=== PATIENT | male | born 1965 | race Caucasian/White ===

== ENCOUNTER 2016-12-21 18:57 | Inpatient (IN) | payer MEDICARE, MEDICAID ==
[~2016-12-21] VITALS: Ht 167.6 cm; Wt 84.0 kg
[~2016-12-21 18:57] MED LIST: GABA300C PO; GLPZ5T PO; IRON PO; LISI10TA2 PO; MS15TCR PO; OMEP-113 PO; OXYC-474 PO; QUET200T PO
[2016-12-21 19:16] VITALS: BP 116/65; PULSE 77; RESP 21; O2SAT 95
--- NOTE | 2016-12-21 20:18 | ED.REPORT ---
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 C/o associated slightly slurred speech and difficulty walking. Pt started new diuretics Furosemide 40 mg/day and chlorthalidone 25mg/day approximately a week ago. Pt has been on morphine and Oxycodone for 2 days. Pt is followed by hepatology in [place] and Dr. Ludwig Suárez oncology. Pt denies vomiting, LOC, and weakness. Pt has a hx of heavy alcohol abuse. Nursing Notes Stated Complaint: UNSTABLE ON FEET, LETHARGIC, FEELS GOOFY/NEW MEDS Chief Complaint: General Complaint Nursing Notes Reviewed: Yes Allergies: Coded Allergies: spironolactone (Verified Adverse Reaction, Mild, nipples hurt, 12/21/16) Scheduled ([Iron ]) 300 MG PO DAILY Gabapentin (Neurontin) 300 Mg Capsule 600 MG PO TID Glipizide (Glipizide) 5 Mg Tablet 5 MG PO DAILY Lisinopril (Lisinopril) 10 Mg Tablet 10 MG PO DAILY Morphine Sulfate ER (MS Contin) 15 Mg Tablet.er 15 MG PO q8hrs Omeprazole Magnesium (Omeprazole) 20 Mg Capsule.dr 20 MG PO DAILY Quetiapine Fumarate (Seroquel) 200 Mg Tablet 300 MG PO HS Scheduled PRN Oxycodone (Roxicodone) 5 Mg Tablet 5-10 MG PO Q4-6H PRN PRN For Pain General Time Seen by MD: 19:41 Chief Complaint Dizziness Hx Obtained From: Patient Arrived By: Walk-in Onset Occurred: 4 days ago Context of Onset: Other (new medication) Symptom Duration: Since onset Context Related History: Reports Recent medication Recent Healthcare: No recent hospitalization, Recent doctor visit Similar Sx Previous: No Past Medical History Past Medical History History of alcohol cirrhosis Diabetes Hypertension GERD Plan sleep apnea and uses CPAP History of CVA in 2005 Q GI bleed and esophageal varices Past Surgical History Status post left 3 for lateral discectomy by Dr. Fitzpatrick in 2013 for herniated nucleus pulposis Elbow repair Smoking History Former Smoker Social History Alcohol Use: In recovery Ambulatory Status Independent Review of Systems Full Review of Systems Constitutional: Reports: Fatigue Eyes: Denies: Eye pain left GI: Denies: Vomiting Neurologic: Reports: Dizziness, Slurred speech, Weakness, Denies: Change LOC, Syncope Complete sys rev & neg: except as marked. 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 Abdomen: Atraumatic, Soft Upper Extremities Upper Extremity / MS: Atraumatic, Inspection NL, Full range of motion, No deformity Wrist / Hand: Atraumatic, Inspection NL, Full range of motion, No deformity Right Leg / Calf: Positive: Swelling present... Left Leg / Calf: Positive: Swelling present... bilateral edema Ankle / Foot: Atraumatic, Inspection NL, Full range of motion, No deformity Color / Condition: Positive: Jaundice present Neurologic: Oriented X3, Speech NL wide, shuffling gait Interpretation & Diagnostics Lab Results Interpretation Result Diagram: 12/21/16214912/21/162149 Test 12/21/16 20:24 12/21/16 21:50 12/21/16 23:48 12/21/16 23:57 Urine Color Yellow (YELLOW) Urine Appearance Clear (CLEAR,HAZY) Urine pH 6.0 (5.0-8.0) Urine Specific [place] 1.005 (1.003-1.035) Urine Protein Negativemg/dL (NEG,TRACE) Urine Glucose (UA) Negativemg/dL (NEGATIVE) Urine Ketones Negativemg/dL (NEGATIVE) Urine Occult Blood Moderate (NEGATIVE) Urine Nitrite Negative (NEGATIVE) Urine Bilirubin Negative (NEGATIVE) Urine Urobilinogen 1.0mg/dL (NORMAL) Urine Leukocyte Esterase Negative (NEGATIVE) Urine RBC 3-10/hpf (0-2) Urine WBC 0-5/hpf (0-5) Urine Epithelial Cells Few/hpf (NONE-MOD) Urine Crystals None seen (NONE SEEN) Urine Bacteria Few/hpf (NONE-FEW) Urine Hyaline Casts None/lpf (NONE) Urine Granular Casts None seen (NONE SEEN) Urine Waxy Casts None seen (NONE SEEN) Urine Red Blood Cell Casts None seen (NONE SEEN) Urine White Blood Cell Casts None seen (NONE SEEN) Urine Mucus None seen (None Seen) Urine Trichomonas None seen (NONE SEEN) Urine Yeast None (NONE SEEN) Urinalysis Comment None Urine Culture Reflexed Not indicated White Blood Count 4.3th/mm3 (3.8-10.1) Red Blood Count 3.21mil/mm3 (4.40-5.80) Hemoglobin 7.8g/dL (13.8-17.2) Hematocrit 23.4% (41.0-50.0) Mean Corpuscular Volume 72.9fL (81-100) Mean Corpuscular Hemoglobin 24.3pg (27.0-35.0) Mean Corpuscular Hemoglobin Concent 33.3% (32.0-37.0) Red Cell Distribution Width 20.9% (12.3-15.4) Platelet Count 131bil/L (150-400) Neutrophils (%) (Auto) 73.0% (40-74) Lymphocytes (%) (Auto) 12.5% (14-46) Monocytes (%) (Auto) 12.0% (4-12) Eosinophils (%) (Auto) 2.1% (0-5) Basophils (%) (Auto) 0.2% (0-3) Prothrombin Time 14.4sec (8.1-12.5) Prothromb Time International Ratio 1.34ratio Sodium Level 113mEq/L (134-144) Potassium Level 3.4mEq/L (3.5-5.2) Chloride Level 71mEq/L (97-108) Carbon Dioxide Level 21mmol/L (18-29) Blood Urea Nitrogen 23mg/dL (6-24) Creatinine 0.78mg/dL (0.76-1.27) Estimat Glomerular Filtration Rate 111mL/min (>59) Glucose Level 94mg/dL (60-99) Calcium Level 8.3mg/dL (8.5-10.1) Total Bilirubin 5.6mg/dL (0.0-1.2) Aspartate Amino Transf (AST/SGOT) 212U/L (0-50) Alanine Aminotransferase (ALT/SGPT) 60U/L (0-44) Alkaline Phosphatase 258U/L (25-150) Ammonia 111ug/dL (18-53) Troponin T 0.010ug/L (0.0-0.011) Pro-B-Type Natriuretic Peptide 45.58pg/mL (0-121) Total Protein 8.2g/dL (6.4-8.4) Albumin 3.1g/dL (3.4-5.0) Lipase 58U/L (13-60) Hold Simms Top Tube Received (Received) Alcohols 99mg/dL (0-10) Lab Results Interpretation: Critically low sodium (113) Alcohol level 99 ECG Interpretation ECG Interpretation: prolonged MN interval prolonged QT interval Time: 20:36 Interpreted by: ED physician Normal ECG Interpretation: Normal sinus rhythm (rate 82) X-Ray Chest Interpretation Chest Xray Interpretation: IMPRESSION: No acute disease is seen in the two-view chest. Cause of cough is not identified. Dictated by: Dandy Castro M.D. on 12/21/2016 at 21:00 Approved by: Dandy Castro M.D. on 12/21/2016 at 21:01 View: Portable Interpretation / Wet Read by: Interpret - Radiologist CT Head Interpretation IMPRESSION: No acute intracranial abnormalities found. Because of unsteady gait is not identified. Dictated by: Dandy Castro M.D. on 12/21/2016 at 20:39 Approved by: Dandy Castro M.D. on 12/21/2016 at 20:42 Study: Head CT no contrast Interpretation / Wet Read by: Interpret - Radiologist Re-Eval/Medical Decision Med Decision/Clinical Course 2212: Pt rechecked. Informed of negative head CT and chest x-ray. 2300: Pt has critically low sodium (113). alcohol level 99. Plan for admit. 2305: Case discussed with Dr. Watkins, nephrology. If he is orthostatic, plan for fluid bolus. Otherwise plan for fluid restriction. 2312: Case discussed with Dr. Crews. He accepts admit. 51-year-old male without colic cirrhosis presents profoundly weak with a staggering gait. He is found to have critical hyponatremia at 113. He also has an elevated alcohol at about 99 and an ammonia up over 100 as well. I consulted with nephrology. For the time being and treated with fluid restriction while checking urine and serum osmolality. If he is hypotensive or orthostatic he will receive careful saline boluses. Otherwise free water restriction. He will be started on lactulose per hospitalist service. Time of Eval: 22:12 Re-Evaluation/Progress Note: Pt rechecked. Informed of negative head CT and chest x-ray. Time of Eval: 23:00 Re-Evaluation/Progress Note: Pt has critically low sodium (113). Plan for admission. Consultation #1: Referral / Consult Name: Thierry Watkins MD Consulted With: Nephrology Call Returned at: 23:01 Note: Case discussed. If the pt is orthostatic, plan for fluid bolus. Otherwise plan for fluid restriction. Consultation #2: Referral / Consult Name: Binu Crews MD Consulted With: Hospitalist Call Returned at: 23:12 Medical Office Technician: Agrees with eval, Agrees with plan, Accepts admit Note: Case discussed. Dr. Crews accepts admit. Counseled Regarding: Diagnosis, Lab results, Need for admission Discharge & Departure Primary Impression: Hyponatremia Additional Impression: Encephalopathy, hepatic Disposition: ADMITTED TO HOSPITAL Discharge Condition All VS Reviewed: Yes Condition: Stable Referrals: LATRICE HAMMER DO (PCP) Crit Care Except Billable Proc Time Spent: >225 minutes Services Performed: Patient management by me, Time spent at bedside, Reviewing test results, Reviewing imaging, Discussing patient care, Documentation in record Scribe Attestation Portion of this note were transcribed by Magnolia Barahona. I, Dr. Brenner, personally performed the history, physical exam, and medical decision-making: I reviewed and confirmed the accuracy for the information in the transcribed note. Signed by: kaylie Gregorio, 12/21/16 2200 copies to: LATRICE HAMMER Todd P DO Dec 21, 2016 20:18 Magnolia Barahona Dec 21, 2016 20:25
[2016-12-21 20:36] LABS: APPEARANCE,URINE CLEAR (CLEAR,HAZY); COLOR,URINE YELLOW (YELLOW)
[2016-12-21 20:37] LABS: OCCULT BLOOD,URINE MODERATE (NEGATIVE)
--- NOTE | 2016-12-21 20:44 | DRSVH ---
PROCEDURE: CT BRAIN WITHOUT CONTRAST ([id number]) INDICATIONS: unsteady gait, weakness TECHNIQUE: Noncontrast 4.5 mm thick angled axial sections acquired from the foramen magnum to the vertex, with c oronal reformats. COMPARISON: None. FINDINGS: Image quality: Good CSF spaces: Basal cisterns are patent. No extra-axial fluid collections. Ventricles are normal in size and shape. Brain: No midline shift. No intracranial masses or hemorrhage. Crowe-white matter interface is norm al. Skull and face: Calvarium and visualized facial bones are intact, without suspicious lesions. Sinuses: Visualized sinuses and mastoids are clear. IMPRESSION: No acute intracranial abnormalities found. Because of unsteady gait is not identified. Dictated by: Dandy Castro M.D. on 12/21/2016 at 20:39 Approved by: Dandy Castro M.D. on 12/21/2016 at 20:42
--- NOTE | 2016-12-21 21:03 | DRSVH ---
PROCEDURE: X-RAY CHEST, TWO VIEWS ([id number]) INDICATIONS: cough, unstable gait TECHNIQUE: 2 views of the chest were acquired. COMPARISON: [facility], , CHEST 1VW (PORTABLE), 04/27/2011, 8:46. FINDINGS: Surgical changes and devices: None. Lungs and pleura: No pleural effusions or pneumothorax. Lungs are clear. Mediastinum: Mediastinal contours are normal. Heart size is normal. Bones and chest wall: No suspicious bony abnormalities. Soft tissues appear unremarkable. IMPRESSION: No acute disease is seen in the two-view chest. Cause of cough is not identified. Dictated by: Dandy Castro M.D. on 12/21/2016 at 21:00 Approved by: Dandy Castro M.D. on 12/21/2016 at 21:01
[2016-12-21 21:05] VITALS: BP 118/71; PULSE 79; RESP 22; O2SAT 96
[2016-12-21 22:10] LABS: BASOPHILS % (AUTO) 0.2 % (0-3); EOSINOPHILS % (AUTO) 2.1 % (0-5); Mean Corpuscular Hemoglobin 24.3 pg (27.0-35.0); Mean Corpuscular Volume 72.9 fL (81-100); Platelet Count 131 bil/L (150-400)
[2016-12-21] MEDS ORDERED: 0.9% Sodium Chloride 1,000 ML IV ONE (22:20)
[2016-12-21 22:24] LABS: INR 1.34 ratio
[2016-12-21 22:56] LABS: TROPONIN T 0.01 ug/L (0.0-0.011)
[2016-12-22] VITALS (13 sets, daily range): BP systolic 90–141; BP diastolic 43–75; PULSE 78–93; RESP 14–22; O2SAT 94–97
[2016-12-22] MEDS ORDERED: Alum-Mag Hydrox-Simeth 30 mL Suspension PO PRN (00:35)
[2016-12-22] MEDS ORDERED: Ondansetron 2 mg/mL 2 mL Inj IVPUSH PRN (00:35)
[2016-12-22] MEDS ORDERED: Lactulose 20 Gm/30 mL 30 mL Syrup PO ONE ×2 (00:35→03:10)
[2016-12-22] MEDS ORDERED: Polyethylene Glycol (PEG) 17 Gm Powder PO PRN (00:35)
[2016-12-22] MEDS: Heparin 5,000 Unit/mL Inj SUBQ SCH ×3 (01:20→16:23)
[2016-12-22] MEDS ORDERED: OMEP20TA24 PO (01:50)
[2016-12-22] MEDS ORDERED: SITA100T12 PO (01:51)
[2016-12-22] MEDS ORDERED: GLIP10TA10 PO (01:52)
[2016-12-22] MEDS ORDERED: LISI-567 PO (01:52)
[2016-12-22] MEDS ORDERED: FURO40TA4 PO (01:54)
[2016-12-22] MEDS ORDERED: HYG25 PO (01:55)
[2016-12-22] MEDS ORDERED: ALBU18HF INH (01:55)
[2016-12-22] MEDS ORDERED: Glucose 40% Oral Gel 15 Gm Tube PO PRN (03:20)
--- NOTE | 2016-12-22 03:32 | PCM.HPMED ---
Subjective Date of Service Dec 21, 2016 Primary Provider: Admitting Physician: Primary Care Physician: Patric Arvizu DO Attending Physician: Chief Complaint: Fatigue, dizziness, difficulty walking History of Present Illness: Jonathan Rosen is a 51 year old man with past medical history significant for alcohol-related cirrhosis, iron deficiency anemia, non-insulin using diabetes mellitus, CVA, and chronic pain associated with lumbar DJD who presents to the ED due to progressive fatigue, dizziness, and difficulty walking over the past week. These symptoms seem to correlate to the initiation of new diuretics including furosemide 40 mg daily and chlorthalidone 25 mg daily on 12/15/16. Patient also notes that he has had slurring of speech over the last month but no other focal weakness. 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 When asked about his alcohol use he states he drinks 1 or 2 beers a day. Additional history obtained from the patient's close friend and in review of Dr. Ludwig Suárez's notes it is evident the patient drinks heavily. The patient is followed by [facility] in [place] for alcohol-related cirrhosis and esophageal varices that have not required intervention. He also follows with Dr. Ludwig Suárez for normocytic hypochromic anemia. In the ED vitals 36.8, pulse 77, respiratory rate 21, blood pressure 116/65, pulse oximetry 95% on room air. Labs were remarkable for sodium of 113, potassium 3.4, bilirubin 5.6, AST 12, ALT 60, alkaline phosphatase 258, ammonia 111, serum osmolality 260, and urine osmolality of 266. CT of the head and chest x-ray were unremarkable. Patient admitted for management of hyponatremia. Review of Systems: Comprehensive review of systems was conducted with the patient and found to be negative except as noted above in HPI. Allergies Coded Allergies: spironolactone (Verified Adverse Reaction, Mild, nipples hurt, 12/21/16) Home Medications Aspirin 81 mg daily Chlorthalidone 25 mg daily Furosemide 40 mg Gabapentin 600 mg 3 times a day Glipizide 10 mg at bedtime Iron 325 mg twice a day Januvia 100 mg daily Lisinopril 20 mg daily MS Contin 15 mg every 8 hours Niacin 250 mg daily Omeprazole 20 mg daily Oxycodone 5 mg every 6 hours when necessary Seroquel 300 mg daily Ventolin 2 puffs every 4-6 hours as needed PMH Diabetes mellitus type II Insomnia Depression Sleep apnea Cirrhosis Lumbar degenerative disc disease PTSD Hypertension Hyperlipidemia History of stroke Esophageal varices Surgical History Lumbar spine surgery in 2013 EGD Elbow surgery in 1994 Family History Paternal grandfather - rheumatoid arthritis Father and mother - healthy Social History Hx Alcohol Use: Yes Hx Substance Use: Yes Hx Tobacco Use: Yes Smoking Status: Former Smoker Exam Vital Signs Vital Sign - Last Date Time Temp Pulse Resp B/P Pulse Ox O2 Delivery O2 Flow Rate FiO2 12/21/16 21:05 79 22 118/71 96 Room Air 12/21/16 19:16 36.8 Exam General: No acute distress, well-developed, well-nourished, appropriately interactive HEENT: Normocephalic, atraumatic. External ears without defect. Pupils equal, round, and reactive to light and accommodation. Anicteric sclerae, moist conjunctivae, and no lid lag. Oropharynx free of erythema and cobble stoning with moist mucosa. Neck: Supple with full range of motion. No jugular venous distension. Cardiovascular: Regular rate and rhythm with a 3/6 systolic murmur. Pulmonary: Clear to auscultation bilaterally with no crackles, wheezes, or rhonchi. Normal respiratory effort with no use of accessory muscles. Abdomen: Bowel tones present. Soft, nontender, nondistended. Extremities: Pitting edema present up to mid calf bilaterally. Skin: Spider angiomas present on anterior chest and arms. Normal temperature, turgor, and texture. Neurological: Cranial nerves grossly intact. Slurred speech. Asterixis present. Mild tremor unknown if this is an essential tremor or from alcohol. Psychiatric: Alert and oriented to person, place, and time. Lab and Diagnostics Labs Laboratory Tests Test 12/21/16 20:24 Urine Color Yellow Urine Appearance Clear Urine pH 6.0 Urine Specific [place] 1.005 Urine Protein Negativemg/dL Urine Glucose (UA) Negativemg/dL Urine Ketones Negativemg/dL Urine Occult Blood Moderate Urine Nitrite Negative Urine Bilirubin Negative Urine Urobilinogen 1.0mg/dL Urine Leukocyte Esterase Negative Urine RBC 3-10/hpf Urine WBC 0-5/hpf Urine Epithelial Cells Few/hpf Urine Crystals None seen Urine Bacteria Few/hpf Urine Hyaline Casts None/lpf Urine Granular Casts None seen Urine Waxy Casts None seen Urine Red Blood Cell Casts None seen Urine White Blood Cell Casts None seen Urine Mucus None seen Urine Trichomonas None seen Urine Yeast None Urinalysis Comment None Urine Culture Reflexed Not indicated 12/21/16 21:50: Total Bilirubin 5.6, Aspartate Amino Transf (AST/SGOT) 212, Alanine Aminotransferase (ALT/SGPT) 60, Alkaline Phosphatase 258, Ammonia 111, Troponin T 0.010, Pro-B-Type Natriuretic Peptide 45.58, Total Protein 8.2, Albumin 3.1, Lipase 58 Alcohol 99 Result Diagram: 12/21/16214912/21/162149 X-Rays, CTs and MRIs X-RAY CHEST, TWO VIEWS ([id number]) IMPRESSION: No acute disease is seen in the two-view chest. Cause of cough is not identified. Dictated by: Dandy Castro M.D. on 12/21/2016 at 21:00 Approved by: Dandy Castro M.D. on 12/21/2016 at 21:01 CT BRAIN WITHOUT CONTRAST ([id number]) IMPRESSION: No acute intracranial abnormalities found. Because of unsteady gait is not identified. Dictated by: Dandy Castro M.D. on 12/21/2016 at 20:39 Approved by: Dandy Castro M.D. on 12/21/2016 at 20:42 12-lead ECG Normal sinus rhythm with a rate of 82 Prolonged VA interval of 210 Prolonged QT interval of 464 Assessment & Plan Jonathan Rosen is a 51 year old man with past medical history significant for alcohol-related cirrhosis, iron deficiency anemia, non-insulin using diabetes mellitus, CVA, and chronic pain associated with lumbar DJD who presents to the ED due to progressive fatigue, dizziness, and difficulty walking over the past week. Admitted for management of hyponatremia. Euvolemic hypotonic hyponatremia, present on admission, active. - Etiology likely multifactorial including SIADH, beer potomania, and recent addition of chlorthalidone. - On presentation sodium of 113 with urine osmolality 266, urine sodium 26, serum osmolality 260 - TSH 1.320. Cortisol level pending. - Fluid restriction of 1 L per day. - Repeat BMP at 0400. - Hold chlorthalidone. - Nephrology consulted. Appreciate time and recommendations. Hyperammonia secondary to Hepatic encephalopathy, present on admission, active. - Patient is a heavy drinker. Ammonia level of 111 and blood alcohol 99 on presentation to the ED. - Patient alert and oriented x 3 at this time and mentating appropriately. - Lactulose 20 mg twice a day to achieve 3-4 bowel movements per day. Elevated liver enzymes, present on admission, active. - Patient has no abdominal pain. - AST and ALT in ratio consistent with alcohol abuse. Interestingly alkaline phosphatase and bilirubin are also elevated. - Repeat labs at 0400. If at this time cholestatic pattern is still present may consider abdominal ultrasound. Alcohol abuse, present on admission, active. - Alcohol level of 99. Last drink around 1200 on 12/21/16. Patient not forthcoming with quantity of alcohol. - AST and ALT in ratio consistent with alcohol abuse. - [facility] protocol in place. - Further discussion about alcohol cessation and resources to be given by Day Team. - Case Management referral placed. Cirrhosis, present on admission, chronic. - Meld score of 16, conveying a 6% 3 month mortality. - Stigmata present including spider angiomas. - Patient states he has esophageal varices but they have not required banding. - Managed by [facility] in [place]. Consider requesting records. - Patient states that he has been checked for hepatitis C and HIV which were both negative recently. Diabetes mellitus, present on admission, chronic. - Home regimen includes Januvia and glipizide. - We will initiate low-dose correctional scale. - Hemoglobin A1c pending. Chronic pain, present on admission, ongoing. - Continue home regimen of Gabapentin 600 mg 3 times a day. - Continue home regimen of oxycodone 5 mg every 6 hours as needed for pain. PRN Medications - Acetaminophen as needed for mild pain/fever/headache - Bowel regimen as needed - Antiemetic as needed Patient is admitted under inpatient status with expected length of stay greater than 2 midnights due to severity of presenting symptoms, risk of adverse event, and complexity of treatment plan. Pain Evaluation: Adequate Pain Control GI Prophylaxis: Not indicated VTE Prophylaxis: Sub-Q Heparin (Unfractionated), SCDs Resuscitation Status: CPR: Attempt Resuscitation Attending Statement The patient was seen and examined together with Dr. Sherwood on 12/21 and I agree with the history, exam and plan as outlined in the note above. HAYDEE SHERWOOD DO Dec 21, 2016 23:48 Binu Crews MD Dec 22, 2016 03:38
[2016-12-22] MEDS ORDERED: Potassium Chloride 20 mEq SR Tablet PO ONE ×4 (05:35→17:55)
[2016-12-22] MEDS: Insulin LISPRO 300 Unit/3 mL Inj SUBQ SCH ×4 (08:00→22:18)
[2016-12-22] MEDS: Lactulose 20 Gm/30 mL 30 mL Syrup PO SCH ×2 (08:40→21:15)
[2016-12-22] MEDS: Multivit-Miner-Folic Acid-Iron Tablet PO SCH (08:40)
[2016-12-22 08:49] LABS: Magnesium 1.8 mg/dL (1.6-2.6); Phosphorus 2.3 mg/dL (2.5-4.9)
[2016-12-22 08:59] LABS: Mean Corpuscular Hemoglobin 24.8 pg (27.0-35.0); Mean Corpuscular Volume 73.7 fL (81-100); Platelet Count 123 bil/L (150-400)
[2016-12-22 09:00] LABS: BASOPHILS % (AUTO) 0.2 % (0-3); EOSINOPHILS % (AUTO) 1.1 % (0-5); MONOCYTES % (AUTO) 13.5 % (4-12); NEUTROPHILS % (AUTO) 79.8 % (40-74)
--- NOTE | 2016-12-22 09:57 | NUR ---
Social Work Note - Initial Assessment/CD assessment Jonathan Rosen is a 51 yr old admitted for severe hyponatremia, hyperammonemia. EMR reviewed: Pt has Medicare and [facility]. His PCP is Dr Arvizu. Is [facility] connected, no LTC insurance, No DPOA - Paperwork given. Readmit score not available. See attached CM initial assessment. SUGAR SAMPLER met with pt - introduced DC planning and explained SW role. Pt lives at home with two room mates. He is disabled after a CVA and back injuries. He is independent at baseline, does not drive due to low vision. He uses no DME. 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 Drinks mainly beer. He denies any drug use. Hx of treatment: Pt has been to AA for help with abstaining from alcohol. He denies any other rehabs. Pt is not currently enrolled in services. Hx of withdrawal: Pt denies any current withdrawal symptoms. Pt has had a CVA in the past - states he does not know if it was due to alcohol withdrawal. History of sobriety and supports: Pt identifies his girlfriend Jesica and his sister as good supports. He lives with several friends, one of which drinks daily. He states that he can ask his family to provide support and they would encourage sobriety. Patient's perception: Pt identified that his liver is not working well - he states that MD has told him to stop drinking in the past. He downplayed how much he was drinking - states he does not drink every day, that when he does he only drinks 2-4 beers. He states that he had not had a drink since Monday - SUGAR SAMPLER explained that when he came to ED yesterday he was .99. Pt states that he can stop on his own. SUGAR SAMPLER offered to have CDP from [facility] come to provide assessment - Pt declined. Suicidal ideation: Pt denies any thoughts of self harm. Recommendation: SUGAR SAMPLER recommends that pt follow up with [facility] for ETOH dependence. PT declining at this time. Pt may benefit from PT evaluation prior to going home. Plan: Home with significant other in [place]. Addendum: 12/22/16 at 1010 by JANEEN MONTES SS Amended: Links added.
--- NOTE | 2016-12-22 10:48 | NUR ---
critical lab: Na 113 Dr Trejo pageradha with critical lab Na of 113 (same as previous result, no change). no new orders as of yet. continue to monitor. Addendum: 12/22/16 at 1140 by MINI MIGUEL RN Dr Trejo aware. no new orders at this time. nephrology to follow.
[2016-12-22] MEDS ORDERED: 0.9% Sodium Chloride 1,000 ML IV SCH (11:40)
[2016-12-22] MEDS ORDERED: 0.9% Sodium Chloride 500 ML IV ONE (11:40)
--- NOTE | 2016-12-22 11:44 | NUR ---
transfer to PCC report called to Kayli Calvin RN. patient transferred to PCC room 2029 at 1145hrs.
--- NOTE | 2016-12-22 11:45 | NUR ---
Admission note report received from Noman WILKINS. Patient arrived to room 2030, via bed from ED. Patient oriented to room, use of call light. Policies and procedures explained. Patient verbalized understanding. Patient alert and oriented x3, pt reminded to use call light for help. Gabriella alarm on due to patient being unsteady on his feet. Awaiting orders. Ongoing care.
--- NOTE | 2016-12-22 13:11 | CONS ---
[address] [address] CONSULTATION REPORT PATIENT: CHAR QUEVEDO : 1965 MR#: [id number] ADMIT: 12/22/2016 JOB ID: [id number] NEPHROLOGY CONSULTATION: DATE OF SERVICE: 12/22/2016 REQUESTING PHYSICIAN: Keven Munson MD REASON FOR CONSULTATION: Management of hyponatremia. CHIEF COMPLAINT: Dizziness and difficulty walking. PRESENT ILLNESS: This is a 51-year-old, male with significant past medical history of chronic liver cirrhosis secondary to alcohol abuse, type 2 diabetes, hypertension, chronic back pain due to degenerative joint disease and lumbar radiculopathy, long-term opiate use who presented to the emergency department with a complaint of fatigue and difficulty walking. He reported that the symptoms started approximately one week after he started new diuretics including furosemide and chlorthalidone. The medications were prescribed on December 14, 2016. He brought the medication the day after. According to the outpatient note, he was instructed to take furosemide for three days due to lower extremity swelling, following 25 mg of chlorthalidone once a day. His initial serum sodium was 113 with a normal kidney function. From the outpatient record, his sodium level was 38; that was in July 2016. We do not have anything recent. The patient reported that he drinks a gallon of juice every day on top of three beers and water. He noted that he has had difficulty walking and feeling lightheaded over the past week. Also had some slurred speech over the past month also, but no neurological deficit. He was told that he has alcoholic liver cirrhosis. At one point, he stop drinking and has relapsed. He mentioned that he had abdominal paracentesis performed a number of years ago. He had esophageal viruses. He was followed by dining service inspector in [place]. In the emergency room, his initial blood pressure was 116/65. He did not have orthostatic hypotension. He was put on fluid restriction; however his serum sodium remained steady at 113. His urine output noted to be increased. In less than 12 hours, he has produced over 4 L. PAST MEDICAL HISTORY: 1. Chronic alcoholic liver cirrhosis. 2. Type 2 diabetes diagnosed in 2004. 3. Lumbar degenerative disk disease and radiculopathy. 4. Hypertension. 5. Dyslipidemia. 6. History of CVA. 7. Esophageal varices. 8. Depression. 9. Insomnia. 10. Sleep apnea. 11. PTSD. PAST SURGICAL HISTORY: 1. Status post lumbar spine surgery in 2013. 2. Status post EGD. 3. Elbow surgery in 1994. FAMILY HISTORY: Positive for rheumatoid arthritis in paternal grandfather. No kidney disease in the family. SOCIAL HISTORY: Actively drinker. He is a former smoker. ALLERGIES AND ADVERSE REACTIONS: SPIRONOLACTONE. REVIEW OF REVIEW: A 14 point review of systems was performed. PHYSICAL EXAMINATION: Vitals: Temperature 37.0, pulse 86, respiratory 14, blood pressure 139/64, O2 sat 94% on room air. General appearance: Awake, alert, oriented x3. In no acute distress. Dizzy when changing position. HEENT: Atraumatic. Moist mucous membranes. Positive for icteric sclerae. PERRLA. No JVD. No lymphadenopathy. No thyroid enlargement. Heart: Regular rhythm. Normal S1, S2. Systolic ejection murmur noted. Lungs: Clear to auscultation bilaterally. No wheezing. No rhonchi. No accessory muscle use. Abdomen is soft, obese, nontender, nondistended. Active bowel sounds. Extremities: Trace edema on the lower extremity. Skin: Positive for spider angiomata on the upper chest. Positive jaundice. LABORATORY: Sodium 113, potassium 3.2, chloride of 72, bicarb 26, BUN 20, creatinine 0.65. Calcium 8.7, phosphorus 2.3, magnesium 1.8. ASSESSMENT: 1. Symptomatic hyponatremia. Serum sodium 113, serum osmolarity 260, urine osmolality 266, urine sodium 26, urine specific gravity of 1.005, urine output of 4230. The etiology of the hyponatremia is likely due to increased free electrolyte fluid consumption including juices, beer, and water. On top of that, he was just recently started on chlorthalidone that obviously induced hyponatremia. SIADH is possible. However, his initial urine was diluted with specific gravity of 1.005. Polyuria was noted. We will put patient on the fluid restriction at 1000 cc per 24 hours. We will give the patient a bolus of normal saline and 500 cc and run at 100 cc/hour. Will replace potassium. We will monitor his serum sodium every 4 hours. If he does not respond, we will start 3% NaCL. 2. Alcoholic liver cirrhosis. 3. Suspected hepatic encephalopathy. 4. Type 2 diabetes. 5. Hypertension. MTDD
--- NOTE | 2016-12-22 14:45 | PCM.PNMED ---
Subjective Date of Service Dec 22, 2016 Subjective The patient does feel weak. He denies any anxiety or tremor. He does feel dizzy upon standing. No chest pain, or palpitations. No abdominal pain, nausea or diarrhea. Morning events noted. Exam Vital Signs Vital Sign - Last Date Time Temp Pulse Resp B/P Pulse Ox O2 Delivery O2 Flow Rate FiO2 12/22/16 11:46 89 12/22/16 11:45 36.8 20 129/75 95 Room Air Intake and Output 12/21/16 12/21/16 12/22/16 Cumulative From/Thru 15:00 23:00 07:00 12/21/16 19:16 - 12/22/16 04:27 Intake Total 120 ml 120 ml Output Total 3500 ml 3500 ml Balance -3380 ml -3380 ml Intake Oral 120 ml 120 ml Output Urine Total 3500 ml 3500 ml Exam Alert and oriented -3, no distress. Fluent speech, somewhat delayed one answering questions. Anicteric sclera. Lungs are clear with normal rate and effort Heart is regular without murmur gallop or rub Abdomen soft nontender, flat Extremities are free of edema. Skin is free of rash or lesions. IVs and Medications Medications Reviewed: Medications were reviewed in detail Lab and Diagnostics Result Diagram: 12/22/16 0805 12/22/16 1102 X-Rays, CTs and MRIs X-RAY CHEST, TWO VIEWS ([id number]) IMPRESSION: No acute disease is seen in the two-view chest. Cause of cough is not identified. Dictated by: Dandy Castro M.D. on 12/21/2016 at 21:00 Approved by: Dandy Castro M.D. on 12/21/2016 at 21:01 CT BRAIN WITHOUT CONTRAST ([id number]) IMPRESSION: No acute intracranial abnormalities found. Because of unsteady gait is not identified. Dictated by: Dandy Castro M.D. on 12/21/2016 at 20:39 Approved by: Dandy Castro M.D. on 12/21/2016 at 20:42 12-lead ECG Normal sinus rhythm with a rate of 82 Prolonged CO interval of 210 Prolonged QT interval of 464 Assessment & Plan Jonathan Rosen is a 51 year old man with past medical history significant for alcohol-related cirrhosis, iron deficiency anemia, non-insulin using diabetes mellitus, CVA, and chronic pain associated with lumbar DJD who presents to the ED due to progressive fatigue, dizziness, and difficulty walking over the past week. Admitted for management of hyponatremia. Euvolemic hypotonic hyponatremia, present on admission, active. - Etiology likely multifactorial including SIADH, beer potomania, and recent addition of chlorthalidone. - On presentation sodium of 113 with urine osmolality 266, urine sodium 26, serum osmolality 260 - TSH 1.320. Cortisol level pending. - Fluid restriction of 1 L per day. - Repeat BMP at 0400. - Hold chlorthalidone. - Nephrology consulted. Appreciate time and recommendations. They recommended normal saline at 100 per hour with interval sodiums. Hyperammonia secondary to Hepatic encephalopathy, present on admission, active and stable. - Patient is a heavy drinker. Ammonia level of 111 and blood alcohol 99 on presentation to the ED. - Patient alert and oriented x 3 at this time and mentating appropriately. - Lactulose 20 mg twice a day to achieve 3-4 bowel movements per day. Elevated liver enzymes, present on admission, active and stable. - Patient has no abdominal pain. - AST and ALT in ratio consistent with alcohol abuse. Interestingly alkaline phosphatase and bilirubin are also elevated. - Repeat labs at 0400. If at this time cholestatic pattern is still present may consider abdominal ultrasound. Alcohol abuse, present on admission, active and stable. - Alcohol level of 99. Last drink around 1200 on 12/21/16. Patient not forthcoming with quantity of alcohol. - AST and ALT in ratio consistent with alcohol abuse. - [facility] protocol in place. - Further discussion about alcohol cessation and resources to be given by Day Team. - Case Management referral placed. The patient states he has not been drinking for last year except for one drink yesterday afternoon. Continue to watch him carefully for evidence of withdrawal. Cirrhosis, present on admission, chronic and stable. - Meld score of 16, conveying a 6% 3 month mortality. - Stigmata present including spider angiomas. - Patient states he has esophageal varices but they have not required banding. - Managed by core manager in [place]. Consider requesting records. - Patient states that he has been checked for hepatitis C and HIV which were both negative recently. Diabetes mellitus, present on admission, chronic. - Home regimen includes Januvia and glipizide. - We will initiate low-dose correctional scale. - Hemoglobin A1c pending. Full add Lantus 5 at bedtime. Chronic pain, present on admission, ongoing and stable. - Continue home regimen of Gabapentin 600 mg 3 times a day. - Continue home regimen of oxycodone 5 mg every 6 hours as needed for pain. PRN Medications - Acetaminophen as needed for mild pain/fever/headache - Bowel regimen as needed - Antiemetic as needed Patient is admitted under inpatient status with expected length of stay greater than 2 midnights due to severity of presenting symptoms, risk of adverse event, and complexity of treatment plan. GI Prophylaxis: Not indicated VTE Prophylaxis: Sub-Q Heparin (Unfractionated), SCDs Resuscitation Status: CPR: Attempt Resuscitation Keven Trejo MD Dec 22, 2016 14:45
--- NOTE | 2016-12-22 16:18 | DRSVH ---
[facility] [address] [place] [address] Echocardiogram Report Name: CHAR QUEVEDO Study Date: 12/22/2016 Height: 66 in Hospital Exam Location: [facility] Weight: 222 lb Gender: Male BSA: 2.1 m2 : 1965 Age: 51 yrs BP: 116/43 mmHg Reason For Study: Murmur, fatigue, unstable on feet Performed By: Erica Amos Referring Physician: HOSPITALIST [facility] Interpretation Summary The left ventricle is normal in size. The left ventricle is mildly hyperdynamic. The ejection fraction is estimated to be 70-75%. There is no echo evidence for significant left ventricular outflow tract obstruction. The right ventricle is grossly normal size. The right ventricular systolic function is normal. There is mild mitral regurgitation. Procedure: A two-dimensional transthoracic echocardiogram with color flow and Doppler was performed. The study quality was technically adequate. There is no prior echocardiogram noted for this patient. The patient was in normal sinus rhythm during the exam. Left Ventricle: The left ventricle is normal in size. There is normal left ventricular wall thickness. There is no echo evidence for significant left ventricular outflow tract obstruction. There is no thrombus. The ejection fraction is estimated to be 70-75%. The left ventricle is mildly hyperdynamic. There are no focal wall motion abnormalities. Spectral Doppler of the mitral valve shows a normal E/A wave ratio. Right Ventricle: The right ventricle is grossly normal size. The right ventricular systolic function is normal. Atria: The left atrium is moderately dilated. Right atrial size is normal. The interatrial septum is intact with no evidence for an atrial septal defect. Mitral Valve: The mitral valve leaflets are slightly calcified. The mitral valve chordae are thickened and/or calcified. There is no mitral valve stenosis. There is mild mitral regurgitation. Aortic Valve: There is mild aortic valve sclerosis. The aortic valve is trileaflet. The aortic valve opens well. There is no aortic valve stenosis. No aortic regurgitation is present. Tricuspid Valve: The tricuspid valve is normal in structure and function. There is trace tricuspid regurgitation. The right ventricular systoilc pressure is estimated at 28mmHg plus CVP. Pulmonic Valve: The pulmonic valve is normal in structure and function. There is trace pulmonic regurgitation. Great Vessels: The aortic root is normal size. The ascending aorta could not be visualized. The pulmonary artery is normal size. The inferior vena cava was not well visualized. Pericardium/ Pleura There is no pericardial effusion. There is no pleural effusion. MMode/2D Measurements & Calculations LVIDd: 5.6 cm LA dimension: 4.6 cm RA long axis LVOT diam: 2.2 cm LVIDs: 3.0 cm AoV Opening FS: 45.3 % LA A2 area: 25.8 cm RA area EPSS: 0.74 cm LA A4 area: 25.0 cm Ao root diam IVSd: 1.0 cm LA length (vol) : 17.0 cm LVPWd: 1.1 cm RA vol Aortic Jxn: 2.7 cm LA vol: 90.1 ml : 45.0 ml Ao Arch Diam (Prox LA vol index RA Trans): 2.9 cm : 21.5 mm2 IVC diam: 2.0 cm LV pereira. diameter/BSA LV sys. diameter/BSA (cm/m^2): 2.7 (cm/m^2): 1.5 Doppler Measurements & Calculations Ao V2 max MV E max lamin MV E/A: 1.3 TR max lamin : 274.9 cm/sec : 115.9 cm/sec Pulm A Revs : 266.4 cm/sec Ao max P.2 mmHg MV A max lamin Dur: 0.11 sec TR max PG Ao mean P.6 mmH.4 cm/sec MV A dur : 28.4 mmHg LVOT Max Lamin : 0.14 sec PA V2 max : 174.6 cm/sec : 154.7 cm/sec PA mean PG MARITZA(I,D): 2.4 cm : 5.1 mmHg sev ratio: 0.64 MV dec time: 0.26 secAo V2 mean LV V1 max PG PA V2 mean : 166.6 cm/sec : 105.9 cm/sec Ao V2 VTI: 51.7 cm LV V1 VTI PA pr(Accel) MARITZA(V,D): 2.4 cm2 : 33.2 cm : 31.6 mmHg MARITZA indexed to BSA Pulm A Revs Dur - MV A (cm^2/m^2): 1.2 Dur: -0.03 msec Reading Physician:ONUR
[2016-12-22] MEDS ORDERED: 3% Sodium Chloride Inj 100 ML IV ONE (16:25)
[2016-12-22] MEDS: 3% Sodium Chloride Inj 500 ML IV SCH (18:34)
[2016-12-22] MEDS: Insulin GLARgine 100 Unit/mL Syringe SUBQ SCH (21:56)
--- NOTE | 2016-12-22 23:08 | NUR ---
Insomnia Pt requested to have Seroquel 300mg HS reinstated for c/o insomnia. MD reinstated medication and it was given this HS. Bed in lowest position with Schuyler alarm on. Call light within reach. Care continues.
[2016-12-23] VITALS (10 sets, daily range): BP systolic 114–185; BP diastolic 64–84; PULSE 77–86; RESP 12–20; O2SAT 95–97
[2016-12-23] MEDS: Heparin 5,000 Unit/mL Inj SUBQ SCH ×3 (00:13→17:20)
[2016-12-23 02:27] LABS: Mean Corpuscular Hemoglobin 24.6 pg (27.0-35.0); Mean Corpuscular Volume 75.1 fL (81-100)
[2016-12-23] MEDS: Lactulose 20 Gm/30 mL 30 mL Syrup PO SCH ×2 (08:31→19:48)
[2016-12-23] MEDS: Insulin LISPRO 300 Unit/3 mL Inj SUBQ SCH ×4 (08:33→21:04)
[2016-12-23] MEDS: Multivit-Miner-Folic Acid-Iron Tablet PO SCH (08:34)
[2016-12-23] MEDS ORDERED: Thiamine Inj 100 MG in Dextrose 5% 50 ML IV ONE (10:00)
[2016-12-23 10:17] LABS: Bilirubin, Direct 4.4 mg/dL (0.0-0.3)
--- NOTE | 2016-12-23 10:51 | PCM.PNMED ---
Subjective Date of Service Dec 23, 2016 Subjective No acute event overnight. Patient continues to be on 3% sodium at 30mls/hr. CIWA is 2-4. This morning, patient reports to feel "wobby and spacy." He admits to unsteady gait with ambulation. Otherwise, he denies anxiety, hallucinations, headache, CP , SOB, nausea, or vomiting. He states that he feels thirsty all the time and drinks plenty of juice and water. Exam Vital Signs Vital Sign - Last Date Time Temp Pulse Resp B/P Pulse Ox O2 Delivery O2 Flow Rate FiO2 12/23/16 08:17 36.5 83 12 121/67 95 Room Air Intake and Output 12/22/16 12/22/16 12/23/16 Cumulative From/Thru 15:00 23:00 07:00 12/21/16 19:16 - 12/23/16 05:02 Intake Total 1123 ml 300 ml 1543 ml Output Total 850 ml 2700 ml 950 ml 8000 ml Balance -850 ml -1577 ml -650 ml -6457 ml Intake Oral 400 ml 300 ml 820 ml IV Total 723 ml 723 ml Output Urine Total 850 ml 2700 ml 950 ml 8000 ml # Bowel Movements 0 0 0 Exam General: Somnolent and oriented x 4. No acute distress, slow to answer and follow commands. HEENT: Normocephalic, atraumatic. External ears without defect. Pupils equal, round, and reactive to light and accommodation. Sclera icterus. Oropharynx free of erythema and cobble stoning with moist mucosa. Neck: Supple with full range of motion. No jugular venous distension. Cardiovascular: Regular rate and rhythm with a II/ systolic murmur. Pulmonary: Clear to auscultation bilaterally with no crackles, wheezes, or rhonchi. Normal respiratory effort with no use of accessory muscles. Abdomen: Bowel tones present. Soft, nontender, nondistended. No ascites noted. Extremities: Mild pitting edema present up to mid calf bilaterally. Skin: Jaundice. Spider angiomas present on anterior chest and arms. Normal temperature, turgor, and texture. Neurological: Cranial nerves grossly intact. Normal speech. Mild tremor unknown if this is an essential tremor or from alcohol. Psychiatric: Alert and oriented to person, place, and time. Normal mood and affect. No anxiety noted. IVs and Medications Medications Reviewed: Medications were reviewed in detail Lab and Diagnostics Result Diagram: 12/23/1621412/23/16214 X-Rays, CTs and MRIs X-RAY CHEST, TWO VIEWS ([id number]) IMPRESSION: No acute disease is seen in the two-view chest. Cause of cough is not identified. Dictated by: Dandy Castro M.D. on 12/21/2016 at 21:00 Approved by: Dandy Castro M.D. on 12/21/2016 at 21:01 CT BRAIN WITHOUT CONTRAST ([id number]) IMPRESSION: No acute intracranial abnormalities found. Because of unsteady gait is not identified. Dictated by: Dandy Castro M.D. on 12/21/2016 at 20:39 Approved by: Dandy Castro M.D. on 12/21/2016 at 20:42 12-lead ECG Normal sinus rhythm with a rate of 82 Prolonged PA interval of 210 Prolonged QT interval of 464 Assessment & Plan Jonathan Rosen is a 51 year old man with past medical history significant for alcohol-related cirrhosis, iron deficiency anemia, non-insulin using diabetes mellitus, CVA, and chronic pain associated with lumbar DJD who presents to the ED due to progressive fatigue, dizziness, and difficulty walking over the past week. Admitted for management of hyponatremia. Encephalopathy and ataxia, POA, active. - likely multifactorial, including hepatic encephalopathy and severe hyponatremia. - Brain CT normal. - Treatment as below. - Nursing to assist with ambulation. Euvolemic hypotonic hyponatremia, present on admission, active. - Etiology is unclear, but likely multifactorial including SIADH, polydipsia, and recent addition of chlorthalidone. - On presentation sodium of 113 with urine osmolality 266, urine sodium 26, serum osmolality 260 - TSH 1.320. Cortisol level normal. - SIADH risk factors: medications (Seroquel, Chlorthalidone) and polydipsia. No recent surgery, normal brain CT, normal CXR. Consider CT chest to rule out malignancy if symptoms not improve. - Fluid restriction of 800mls per day. - Hold chlorthalidone. - Nephrology consulted. Appreciate time and recommendations. Continue 3% sodium chloride at 30mls per hour with interval sodium checks q3H. Hyperammonia secondary to Hepatic encephalopathy, present on admission, active and stable. - Patient is a heavy drinker. Ammonia level of 111 and blood alcohol 99 on presentation to the ED. - Patient alert and oriented x 3 at this time and mentating appropriately. - Lactulose 20 mg twice a day to achieve 3-4 bowel movements per day. Elevated liver enzymes, present on admission, active and stable. - Patient has no abdominal pain. - AST and ALT in ratio consistent with alcohol abuse. Interestingly alkaline phosphatase and bilirubin are also elevated. - Repeat labs at 0400. If at this time cholestatic pattern is still present may consider abdominal ultrasound. Alcohol abuse, present on admission, active and stable. - Alcohol level of 99. The patient states he has not been drinking for last year except for one beer during lunch prior to admission. Patient not forthcoming with quantity of alcohol. - AST and ALT in ratio consistent with alcohol abuse. - Continue CIWA protocol. - Case Management referral placed for alcohol cessation and resources. Cirrhosis, present on admission, chronic and stable. - Meld score of 16, conveying a 6% 3 month mortality. - Stigmata present including spider angiomas and mild tremors. - Patient states he has esophageal varices but they have not required banding. - Managed by nursing techn in [place]. Consider requesting records. - Patient states that he has been checked for hepatitis C and HIV which were both negative recently. Diabetes mellitus, present on admission, chronic. - Home regimen includes Januvia and glipizide. Will hold at this time. - We will continue Lantus 5 at bedtime and low-dose correctional scale. - Hemoglobin A1c 5.2. Chronic pain, present on admission, ongoing and stable. - Continue home regimen of Gabapentin 600 mg 3 times a day. - Continue home regimen of oxycodone 5 mg every 6 hours as needed for pain. PRN Medications - Acetaminophen as needed for mild pain/fever/headache - Bowel regimen as needed - Antiemetic as needed Patient is admitted under inpatient status with expected length of stay greater than 2 midnights due to severity of presenting symptoms, risk of adverse event, and complexity of treatment plan. Pain Evaluation: Adequate Pain Control GI Prophylaxis: Not indicated VTE Prophylaxis: Sub-Q Heparin (Unfractionated), SCDs Resuscitation Status: CPR: Attempt Resuscitation Attending Statement The patient was seen and examined with staff. Agree with all attached documentation. Elsy Almanza DO Dec 23, 2016 08:57 Keven Trejo MD Dec 24, 2016 13:24
--- NOTE | 2016-12-23 11:31 | NUR ---
Home Meds Packaged and sent to pharmacy. Security slip in pt chart.
[2016-12-23] MEDS: 3% Sodium Chloride Inj 500 ML IV SCH (12:49)
--- NOTE | 2016-12-23 13:21 | PCM.PNNEPH ---
Subjective Date of Service Dec 23, 2016 Subjective 3% NaCL 100 ml bolus x 1 then drip at rate 30 ml/hr. Current Na 121. He c/o unsteady gait and being wobbly. Exam Vital Signs Vital Sign - Last Date Time Temp Pulse Resp B/P Pulse Ox O2 Delivery O2 Flow Rate FiO2 12/23/16 12:15 114/82 12/23/16 12:12 36.9 83 12 96 Room Air Intake and Output 12/22/16 12/22/16 12/23/16 Cumulative From/Thru 15:00 23:00 07:00 12/21/16 19:16 - 12/23/16 05:02 Intake Total 1123 ml 300 ml 1543 ml Output Total 850 ml 2700 ml 950 ml 8000 ml Balance -850 ml -1577 ml -650 ml -6457 ml Intake Oral 400 ml 300 ml 820 ml IV Total 723 ml 723 ml Output Urine Total 850 ml 2700 ml 950 ml 8000 ml # Bowel Movements 0 0 0 Exam General appearance: Awake, alert, oriented x3. In no acute distress. Dizzy when changing position. HEENT: Atraumatic. Moist mucous membranes. Positive for icteric sclerae. PERRLA. No JVD. No lymphadenopathy. No thyroid enlargement. Heart: Regular rhythm. Normal S1, S2. Systolic ejection murmur noted. Lungs: Clear to auscultation bilaterally. No wheezing. No rhonchi. No accessory muscle use. Abdomen is soft, obese, nontender, nondistended. Active bowel sounds. Extremities: Trace edema on the lower extremity. Skin: Positive for spider angiomata on the upper chest. Positive jaundice. Lab and Diagnostics Result Diagram: 12/23/16 0215 12/23/16 1109 X-Rays, CTs and MRIs X-RAY CHEST, TWO VIEWS ([id number]) IMPRESSION: No acute disease is seen in the two-view chest. Cause of cough is not identified. Dictated by: Dandy Castro M.D. on 12/21/2016 at 21:00 Approved by: Dandy Castro M.D. on 12/21/2016 at 21:01 CT BRAIN WITHOUT CONTRAST ([id number]) IMPRESSION: No acute intracranial abnormalities found. Because of unsteady gait is not identified. Dictated by: Dandy Castro M.D. on 12/21/2016 at 20:39 Approved by: Dandy Castro M.D. on 12/21/2016 at 20:42 12-lead ECG Normal sinus rhythm with a rate of 82 Prolonged DE interval of 210 Prolonged QT interval of 464 Plan Impression ASSESSMENT: 1. Symptomatic hyponatremia. - Euvolemia. - Multifactorial: polydipsia, chlorthalidone - SIADH risk factor being on seroquel, Na level worsens after NS administration. Initial UA (low sp gr, 1.005) and high UOP speak against SIADH After being on fluid restriction, his urine osm has risen indicating concurrent ADH release. In this case could be related to antipsychotic med, seroquel. 2. Alcoholic liver cirrhosis. 3. Suspected hepatic encephalopathy. 4. Type 2 diabetes. 5. Hypertension. 6. Confusion and ataxia, DDx: hyonatremia and Wernicke-Korsakoff syndrome. Plan: Continue 3%NaCl 30 ml/hr. Hold Seroquel. Na level q 3 hr. Thiamine supplement. Thierry Watkins MD Dec 23, 2016 13:21
--- NOTE | 2016-12-23 15:31 | NUR ---
Social Work: Multidisciplinary Rounds Pt discussed in am rounds; sw status remains unchanged. Anticipate discharge home when medically stable. NEWSPAPER DISTRIBUTOR SUPERVISOR to continue to follow to assess for further d/c needs Ana Bhakta MSW
--- NOTE | 2016-12-23 15:59 | NUR ---
Mentation/Gait Pt appears confused upon waking, but with redirection and reorienting he becomes alert and oriented. He does not understand or forgets why he is so shaky and unsteady/weak. Re-enforcement needed to remind him that he is very unsteady on his feet at this time and needs to use either BSC or urinal.
[2016-12-23] MEDS: Insulin GLARgine 100 Unit/mL Syringe SUBQ SCH (21:03)
[2016-12-24] MEDS: Heparin 5,000 Unit/mL Inj SUBQ SCH ×3 (00:47→16:57)
[2016-12-24 03:27] VITALS: BP 162/86; PULSE 82; RESP 20; O2SAT 96
[2016-12-24 04:09] LABS: Mean Corpuscular Hemoglobin 24.3 pg (27.0-35.0); Mean Corpuscular Volume 78.6 fL (81-100)
[2016-12-24 04:44] LABS: Magnesium 1.9 mg/dL (1.6-2.6)
--- NOTE | 2016-12-24 05:02 | NUR ---
CIWA: Pt has been appropriate throughout the night; scoring a max of 4 on his CIWA assessment. Pt cooperative with care and fluid restriction. Sodium level this am is 125.
[2016-12-24 08:57] VITALS: BP 154/81; PULSE 84; RESP 18; O2SAT 98
[2016-12-24] MEDS: Insulin LISPRO 300 Unit/3 mL Inj SUBQ SCH ×4 (09:08→22:00)
[2016-12-24] MEDS: Lactulose 20 Gm/30 mL 30 mL Syrup PO SCH ×4 (09:08→21:17)
[2016-12-24] MEDS: Multivit-Miner-Folic Acid-Iron Tablet PO SCH (09:09)
[2016-12-24] MEDS ORDERED: Thiamine Inj 100 MG in Dextrose 5% 50 ML IV ONE (10:05)
--- NOTE | 2016-12-24 11:18 | PCM.PNMED ---
Subjective Date of Service Dec 24, 2016 Subjective Patient is doing well. He has his chronic neck and lower leg pain. The patient feels like he is really not confused. He denies any headache chest pain or abdominal pain. No bowel movement since admission. The patient see. He will be seen by physical therapy today. Sodium is improving. No overnight events. Exam Vital Signs Vital Sign - Last Date Time Temp Pulse Resp B/P Pulse Ox O2 Delivery O2 Flow Rate FiO2 12/24/16 08:57 36.9 84 18 154/81 98 Room Air Intake and Output 12/23/16 12/23/16 12/24/16 Cumulative From/Thru 15:00 23:00 07:00 12/21/16 19:16 - 12/24/16 06:40 Intake Total 334 ml 290 ml 2167 ml Output Total 725 ml 8725 ml Balance 334 ml -435 ml -6558 ml Intake Oral 290 ml 1110 ml IV Total 334 ml 1057 ml Output Urine Total 725 ml 8725 ml # Bowel Movements 0 Exam Alert and oriented -3, no distress. Fluent speech Anicteric sclera. Lungs are clear with normal rate and effort Heart is regular without murmur gallop or rub Abdomen soft nontender, flat Extremities are free of edema. Skin is free of rash or lesions. No liver flap IVs and Medications Medications Reviewed: Medications were reviewed in detail Lab and Diagnostics Result Diagram: 12/24/16 0340 12/24/16 0340 X-Rays, CTs and MRIs X-RAY CHEST, TWO VIEWS ([id number]) IMPRESSION: No acute disease is seen in the two-view chest. Cause of cough is not identified. Dictated by: Dandy Castro M.D. on 12/21/2016 at 21:00 Approved by: Dandy Castro M.D. on 12/21/2016 at 21:01 CT BRAIN WITHOUT CONTRAST ([id number]) IMPRESSION: No acute intracranial abnormalities found. Because of unsteady gait is not identified. Dictated by: Dandy Castro M.D. on 12/21/2016 at 20:39 Approved by: Dandy Castro M.D. on 12/21/2016 at 20:42 12-lead ECG Normal sinus rhythm with a rate of 82 Prolonged IA interval of 210 Prolonged QT interval of 464 Assessment & Plan Jonathan Rosen is a 51 year old man with past medical history significant for alcohol-related cirrhosis, iron deficiency anemia, non-insulin using diabetes mellitus, CVA, and chronic pain associated with lumbar DJD who presents to the ED due to progressive fatigue, dizziness, and difficulty walking over the past week. Admitted for management of hyponatremia. #. Encephalopathy and ataxia, POA, active and improving.. - likely multifactorial, including hepatic encephalopathy and severe hyponatremia. - Brain CT normal. - Treatment as below. - Nursing to assist with ambulation. We will increase lactulose to 4 times a day just to see if she gets any improvement from this. I believe that a lot of his confusion relates to his hyponatremia. #. Euvolemic hypotonic hyponatremia, present on admission, active and improving. - Etiology is unclear, but likely multifactorial including SIADH, polydipsia, and recent addition of chlorthalidone. - On presentation sodium of 113 with urine osmolality 266, urine sodium 26, serum osmolality 260 - TSH 1.320. Cortisol level normal. - SIADH risk factors: medications (Seroquel, Chlorthalidone) and polydipsia. No recent surgery, normal brain CT, normal CXR. Consider CT chest to rule out malignancy if symptoms not improve. - Fluid restriction of 800mls per day. - Hold chlorthalidone. - Nephrology consulted. Appreciate time and recommendations. Nephrology did stop hypertonic yesterday. We will repeat a urine osmolality today. #. Elevated liver enzymes, present on admission, active and stable. - Patient has no abdominal pain. - AST and ALT in ratio consistent with alcohol abuse. Interestingly alkaline phosphatase and bilirubin are also elevated. - Repeat labs at 0400. If at this time cholestatic pattern is still present may consider abdominal ultrasound. -This may represent alcohol-induced hepatitis. #. Alcohol abuse with possible mild withdrawal syndrome, present on admission, active and improving. - Alcohol level of 99. The patient states he has not been drinking for last year except for one beer during lunch prior to admission. Patient not forthcoming with quantity of alcohol. - AST and ALT in ratio consistent with alcohol abuse. - Continue CIWA protocol. - Case Management referral placed for alcohol cessation and resources. #. Cirrhosis, present on admission, chronic and stable. - Meld score of 16, conveying a 6% 3 month mortality. - Stigmata present including spider angiomas and mild tremors. - Patient states he has esophageal varices but they have not required banding. - Managed by supervisor stitching department in [place]. Consider requesting records. - Patient states that he has been checked for hepatitis C and HIV which were both negative recently. #. Diabetes mellitus 2, present on admission, chronic. - Home regimen includes Januvia and glipizide. Will hold at this time. - We will continue Lantus 5 at bedtime and low-dose correctional scale. - Hemoglobin A1c 5.2. Chronic pain, present on admission, ongoing and stable. - Continue home regimen of Gabapentin 600 mg 3 times a day. - Continue home regimen of oxycodone 5 mg every 6 hours as needed for pain. PRN Medications - Acetaminophen as needed for mild pain/fever/headache - Bowel regimen as needed - Antiemetic as needed Patient is admitted under inpatient status with expected length of stay greater than 2 midnights due to severity of presenting symptoms, risk of adverse event, and complexity of treatment plan. GI Prophylaxis: Not indicated VTE Prophylaxis: Sub-Q Heparin (Unfractionated), SCDs Resuscitation Status: CPR: Attempt Resuscitation Keven Trejo MD Dec 24, 2016 11:18
[2016-12-24 12:33] VITALS: BP 137/82; PULSE 84; RESP 18; O2SAT 98
--- NOTE | 2016-12-24 13:30 | NUR ---
Transfer of care Patient transferred to [facility] room 3030. Report given to Jn Salaamnca. Family aware of transfer. Stable condition.
--- NOTE | 2016-12-24 13:38 | NUR ---
Kali elliott [facility] Patient arrived to floor with mother and sister at approx 1325. Oriented x 3. Does admit to feeling periods of confusion and "groggy". Oriented patient to room. Denies BM. Bowel tones x 4. Agrees to plan of care.
--- NOTE | 2016-12-24 14:29 | PCM.PNNEPH ---
Subjective Date of Service Dec 24, 2016 Subjective Na 125, more awake and alert, still wobbly. Exam Vital Signs Vital Sign - Last Date Time Temp Pulse Resp B/P Pulse Ox O2 Delivery O2 Flow Rate FiO2 12/24/16 12:33 36.5 84 18 137/82 98 Room Air Intake and Output 12/23/16 12/23/16 12/24/16 Cumulative From/Thru 15:00 23:00 07:00 12/21/16 19:16 - 12/24/16 06:40 Intake Total 334 ml 290 ml 2167 ml Output Total 725 ml 8725 ml Balance 334 ml -435 ml -6558 ml Intake Oral 290 ml 1110 ml IV Total 334 ml 1057 ml Output Urine Total 725 ml 8725 ml # Bowel Movements 0 Exam General appearance: Awake, alert, oriented x3. In no acute distress. Dizzy when changing position. HEENT: Atraumatic. Moist mucous membranes. Positive for icteric sclerae. PERRLA. No JVD. No lymphadenopathy. No thyroid enlargement. (+) nystagmus. Heart: Regular rhythm. Normal S1, S2. Systolic ejection murmur noted. Lungs: Clear to auscultation bilaterally. No wheezing. No rhonchi. No accessory muscle use. Abdomen is soft, obese, nontender, nondistended. Active bowel sounds. Extremities: Trace edema on the lower extremity. Skin: Positive for spider angiomata on the upper chest. Positive jaundice. Lab and Diagnostics Result Diagram: 12/24/16 0340 12/24/16 0340 X-Rays, CTs and MRIs X-RAY CHEST, TWO VIEWS ([id number]) IMPRESSION: No acute disease is seen in the two-view chest. Cause of cough is not identified. Dictated by: Dandy Castro M.D. on 12/21/2016 at 21:00 Approved by: Dandy Castro M.D. on 12/21/2016 at 21:01 CT BRAIN WITHOUT CONTRAST ([id number]) IMPRESSION: No acute intracranial abnormalities found. Because of unsteady gait is not identified. Dictated by: Dandy Castro M.D. on 12/21/2016 at 20:39 Approved by: Dandy Castro M.D. on 12/21/2016 at 20:42 12-lead ECG Normal sinus rhythm with a rate of 82 Prolonged SC interval of 210 Prolonged QT interval of 464 Plan Impression ASSESSMENT: 1. Symptomatic hyponatremia. - Euvolemia. - Multifactorial: polydipsia, chlorthalidone - SIADH risk factor being on seroquel, Na level worsens after NS administration. Initial UA (low sp gr, 1.005) and high UOP speak against SIADH After being on fluid restriction, his urine osm has risen indicating concurrent ADH release. In this case could be related to antipsychotic med, seroquel. 2. Alcoholic liver cirrhosis. 3. Confusion and ataxia (+) nystagmus per exam. Suspected Wernicke-Korsakoff syndrome. 4. Type 2 diabetes. 5. Hypertension. Plan: fluid restriction 800 ml/day. sodium tablet 1 gm BID x 3. Thiamine supplement. repeat BMP in am. Thierry Watkins MD Dec 24, 2016 14:28
[2016-12-24] MEDS: Thiamine Inj 500 MG in Dextrose 5% 50 ML IV SCH ×2 (15:17→22:21)
--- NOTE | 2016-12-24 16:37 | NUR ---
Evaluation completed. Please go to "Notes" then click on "Assessments and Notes" (bottom left corner of screen). Then select appropriate discipline tab on top of screen.
[2016-12-24] MEDS: Insulin GLARgine 100 Unit/mL Syringe SUBQ SCH (21:16)
[2016-12-24 21:23] VITALS: BP 157/85; PULSE 80; RESP 18; O2SAT 99
[2016-12-25] MEDS: Heparin 5,000 Unit/mL Inj SUBQ SCH ×3 (00:30→16:53)
[2016-12-25 02:53] VITALS: BP 142/74; PULSE 78; RESP 18; O2SAT 97
[2016-12-25 05:13] VITALS: BP 150/73; PULSE 81; RESP 18; O2SAT 96
[2016-12-25] MEDS: Lactulose 20 Gm/30 mL 30 mL Syrup PO SCH ×4 (06:30→21:57)
[2016-12-25] MEDS: Thiamine Inj 500 MG in Dextrose 5% 50 ML IV SCH ×3 (06:30→21:57)
[2016-12-25] MEDS: Multivit-Miner-Folic Acid-Iron Tablet PO SCH (08:43)
[2016-12-25] MEDS: Insulin LISPRO 300 Unit/3 mL Inj SUBQ SCH ×4 (08:44→21:57)
--- NOTE | 2016-12-25 09:10 | NUR ---
ESTEFANI signed ROBERTO Baldwin
[2016-12-25 09:41] LABS: BASOPHILS % (AUTO) 0.8 % (0-3); EOSINOPHILS % (AUTO) 3.5 % (0-5); MONOCYTES % (AUTO) 14.3 % (4-12); Mean Corpuscular Hemoglobin 24.6 pg (27.0-35.0); Mean Corpuscular Volume 79.6 fL (81-100); NEUTROPHILS % (AUTO) 72.4 % (40-74); Platelet Count 167 bil/L (150-400)
[2016-12-25 10:47] LABS: Unsaturated Iron Binding 337.1 ug/dL
--- NOTE | 2016-12-25 11:01 | PCM.PNMED ---
Subjective Date of Service Dec 25, 2016 Subjective No acute complaints this morning. Patient still feeling weaker than his usual, but states better than the day before. Appetite is improving. Exam Vital Signs Vital Sign - Last Date Time Temp Pulse Resp B/P Pulse Ox O2 Delivery O2 Flow Rate FiO2 12/25/16 05:13 36.4 81 18 150/73 96 Room Air Intake and Output 12/24/16 12/24/16 12/25/16 Cumulative From/Thru 15:00 23:00 07:00 12/21/16 19:16 - 12/25/16 06:57 Intake Total 692 ml 400 ml 3259 ml Output Total 1350 ml 2200 ml 95854 ml Balance -658 ml -1800 ml -9016 ml Intake Oral 692 ml 400 ml 2202 ml IV Total 1057 ml Output Urine Total 1350 ml 2200 ml 31471 ml # Voids 1 1 2 # Bowel Movements 0 0 General: Alert, Cooperative, Mild Distress Chest & Lungs: No adventitious breath sounds Cardiovascular: Regular Rate/Rhythm Abdomen: Non-tender, Non-distended, Other (obese) Extremities: No cyanosis/clubbing/edma bilat Neurological: Grossly Neurologically Intact IVs and Medications Medications Reviewed: Medications were reviewed in detail Lab and Diagnostics Result Diagram: 12/25/16 0930 12/25/16 0930 X-Rays, CTs and MRIs X-RAY CHEST, TWO VIEWS ([id number]) IMPRESSION: No acute disease is seen in the two-view chest. Cause of cough is not identified. Dictated by: Dandy Castro M.D. on 12/21/2016 at 21:00 Approved by: Dadny Castro M.D. on 12/21/2016 at 21:01 CT BRAIN WITHOUT CONTRAST ([id number]) IMPRESSION: No acute intracranial abnormalities found. Because of unsteady gait is not identified. Dictated by: Dandy Castro M.D. on 12/21/2016 at 20:39 Approved by: Dandy Castro M.D. on 12/21/2016 at 20:42 12-lead ECG Normal sinus rhythm with a rate of 82 Prolonged MD interval of 210 Prolonged QT interval of 464 Assessment & Plan Jonathan Rosen is a 51 year old man with past medical history significant for alcohol-related cirrhosis, iron deficiency anemia, non-insulin using diabetes mellitus, CVA, and chronic pain associated with lumbar DJD who presents to the ED due to progressive fatigue, dizziness, and difficulty walking over the past week. Admitted for management of hyponatremia. #. Encephalopathy and ataxia, POA, active and improving.. - likely multifactorial, including hepatic encephalopathy and severe hyponatremia. - Brain CT normal. - Treatment as below. - Nursing to assist with ambulation. We will increase lactulose to 4 times a day just to see if she gets any improvement from this. I believe that a lot of his confusion relates to his hyponatremia. - Mentation appears improved from one day prior, continue to monitor . #. Euvolemic hypotonic hyponatremia, present on admission, active and improving. - Etiology is unclear, but likely multifactorial including SIADH, polydipsia, and recent addition of chlorthalidone. - On presentation sodium of 113 with urine osmolality 266, urine sodium 26, serum osmolality 260 - TSH 1.320. Cortisol level normal. - SIADH risk factors: medications (Seroquel, Chlorthalidone) and polydipsia. No recent surgery, normal brain CT, normal CXR. Consider CT chest to rule out malignancy if symptoms not improve. - Continue fluid restriction of 800mls per day. - Hold chlorthalidon, will continue Seroquel at least at this time. - Nephrology consulted. Appreciate time and recommendations. Nephrology did stop hypertonic yesterday. #. Elevated liver enzymes, present on admission, active and stable. - Patient has no abdominal pain. - AST and ALT in ratio consistent with alcohol abuse. Interestingly alkaline phosphatase and bilirubin are also elevated. - If at this time cholestatic pattern is still present may consider abdominal ultrasound condition does not continue to resolve. -This may represent alcohol-induced hepatitis. - Liver functions are slowly downward trending - Continue to monitor, for clinical as well as laboratory improvement. #. Alcohol abuse with possible mild withdrawal syndrome, present on admission, active and improving. - Alcohol level of 99. The patient states he has not been drinking for last year except for one beer during lunch prior to admission. Patient not forthcoming with quantity of alcohol. - AST and ALT in ratio consistent with alcohol abuse. - Continue CIWA protocol. - Case Management referral placed for alcohol cessation and resources. #. Cirrhosis, present on admission, chronic and stable. - Meld score of 16, conveying a 6% 3 month mortality. - Stigmata present including spider angiomas and mild tremors. - Patient states he has esophageal varices but they have not required banding. - Managed by idea man in [place]. Consider requesting records. - Patient states that he has been checked for hepatitis C and HIV which were both negative recently. #. Diabetes mellitus 2, present on admission, chronic. - Home regimen includes Januvia and glipizide. Will hold at this time. - We will continue Lantus, increase to 10 units daily at bedtime given elevated a.m. blood sugar, in addition to increasing to medium dose correctional scale. - Hemoglobin A1c 5.2. Chronic pain, present on admission, ongoing and stable. - Continue home regimen of Gabapentin 600 mg 3 times a day. - Continue home regimen of oxycodone 5 mg every 6 hours as needed for pain. Pain Evaluation: Adequate Pain Control GI Prophylaxis: Not indicated VTE Prophylaxis: Sub-Q Heparin (Unfractionated), SCDs VTE Mechanical Devices: Venous Foot Pump Resuscitation Status: CPR: Attempt Resuscitation Time spent 30 minutes Lamonte Pennington DO Dec 25, 2016 11:01
[2016-12-25 12:51] VITALS: BP 155/78; PULSE 83; RESP 18; O2SAT 97
[2016-12-25 12:55] LABS: APPEARANCE,URINE CLEAR (CLEAR,HAZY); COLOR,URINE YELLOW (YELLOW); OCCULT BLOOD,URINE NEGATIVE (NEGATIVE)
[2016-12-25 12:56] LABS: ICTOTEST,URINE POSITIVE (Negative)
--- NOTE | 2016-12-25 13:07 | PCM.PNNEPH ---
Subjective Date of Service Dec 25, 2016 Subjective Feeling much better. able to read clearly, no blurry vision. Balance has improved. Na 128. Exam Vital Signs Vital Sign - Last Date Time Temp Pulse Resp B/P Pulse Ox O2 Delivery O2 Flow Rate FiO2 12/25/16 12:51 37.2 83 18 155/78 97 Room Air Intake and Output 12/24/16 12/24/16 12/25/16 Cumulative From/Thru 15:00 23:00 07:00 12/21/16 19:16 - 12/25/16 06:57 Intake Total 692 ml 400 ml 3259 ml Output Total 1350 ml 2200 ml 90407 ml Balance -658 ml -1800 ml -9016 ml Intake Oral 692 ml 400 ml 2202 ml IV Total 1057 ml Output Urine Total 1350 ml 2200 ml 68053 ml # Voids 1 1 2 # Bowel Movements 0 0 Exam General appearance: Awake, alert, oriented x3. In no acute distress. Dizzy when changing position. HEENT: Atraumatic. Moist mucous membranes. Positive for icteric sclerae. PERRLA. No JVD. No lymphadenopathy. No thyroid enlargement. (+) nystagmus. Heart: Regular rhythm. Normal S1, S2. Systolic ejection murmur noted. Lungs: Clear to auscultation bilaterally. No wheezing. No rhonchi. No accessory muscle use. Abdomen is soft, obese, nontender, nondistended. Active bowel sounds. Extremities: Trace edema on the lower extremity. Skin: Positive for spider angiomata on the upper chest. Positive jaundice. Lab and Diagnostics Result Diagram: 12/25/16 0930 12/25/16 0930 X-Rays, CTs and MRIs X-RAY CHEST, TWO VIEWS ([id number]) IMPRESSION: No acute disease is seen in the two-view chest. Cause of cough is not identified. Dictated by: Dandy Castro M.D. on 12/21/2016 at 21:00 Approved by: Dandy Castro M.D. on 12/21/2016 at 21:01 CT BRAIN WITHOUT CONTRAST ([id number]) IMPRESSION: No acute intracranial abnormalities found. Because of unsteady gait is not identified. Dictated by: Dandy Castro M.D. on 12/21/2016 at 20:39 Approved by: Dandy Castro M.D. on 12/21/2016 at 20:42 12-lead ECG Normal sinus rhythm with a rate of 82 Prolonged SD interval of 210 Prolonged QT interval of 464 Plan Impression ASSESSMENT: 1. Symptomatic hyponatremia. - Euvolemia. - Multifactorial: polydipsia, chlorthalidone, SIADH. - SIADH: risk factor being on seroquel, Na level worsens after NS administration. Initial UA (low sp gr, 1.005) and high UOP speak against SIADH After being on fluid restriction, his urine osm has risen indicating concurrent ADH release. In this case could be related to antipsychotic med, seroquel. 2. Alcoholic liver cirrhosis. 3. Confusion and ataxia-resolved. (+) nystagmus per exam. Suspected Wernicke-Korsakoff syndrome. 4. Type 2 diabetes. 5. Hypertension. 6. Anemia, low ferritin and Tsat. high risk of GIB given h/o liver cirrhosis and EV. Plan: Fluid restriction 800 ml/day. Continue sodium tablet 1 gm BID x 3. Continue Thiamine supplement. Add FESO supplement. Repeat BMP in am. D/c planning ~ within 24 hr. Thierry Watkins MD Dec 25, 2016 13:07
--- NOTE | 2016-12-25 14:25 | NUR ---
Social Work: Cont d/c planning / Multidisciplinary Rounds Data: Pt is on day 3 of hospitalization. EMR reviewed. Pt discussed in rounds. MD states pt not medically stable and likely to d/c in about 2 days. No d/c planning needs at this time. Pt previously declined CD resources. [employer] will continue to follow. Assessment: Pt who is independent at baseline, capable of self care at this time. Plan: Pt will d/c home via POV when medically stable. No d/c planning needs at this time. Pt previously declined CD resources. [employer] will continue to follow. ROBERTO Baldwin
[2016-12-25 21:15] VITALS: BP 145/83; PULSE 78; RESP 18; O2SAT 95
[2016-12-25] MEDS: Insulin GLARgine 100 Unit/mL Syringe SUBQ SCH (21:56)
[2016-12-26] MEDS: Heparin 5,000 Unit/mL Inj SUBQ SCH ×2 (01:36→07:48)
[2016-12-26 06:21] LABS: BASOPHILS % (AUTO) 0.8 % (0-3); EOSINOPHILS % (AUTO) 5.1 % (0-5); Mean Corpuscular Hemoglobin 24.9 pg (27.0-35.0); Mean Corpuscular Volume 79.4 fL (81-100); NEUTROPHILS % (AUTO) 64.3 % (40-74); Platelet Count 190 bil/L (150-400)
[2016-12-26 06:31] VITALS: BP 123/67; PULSE 74; RESP 18; O2SAT 95
[2016-12-26] MEDS: Lactulose 20 Gm/30 mL 30 mL Syrup PO SCH (06:38)
[2016-12-26] MEDS: Thiamine Inj 500 MG in Dextrose 5% 50 ML IV SCH (06:38)
[2016-12-26] MEDS: Multivit-Miner-Folic Acid-Iron Tablet PO SCH (07:47)
[2016-12-26] MEDS: Insulin LISPRO 300 Unit/3 mL Inj SUBQ SCH (07:50)
--- NOTE | 2016-12-26 12:00 | PCM.PNNEPH ---
Subjective Date of Service Dec 26, 2016 Subjective He was not on fluid restriction yesterday. Na 127. UOP 4L. Overall feeling better. Exam Vital Signs Vital Sign - Last Date Time Temp Pulse Resp B/P Pulse Ox O2 Delivery O2 Flow Rate FiO2 12/26/16 06:31 36.9 74 18 123/67 95 Room Air Intake and Output 12/25/16 12/25/16 12/26/16 Cumulative From/Thru 15:00 23:00 07:00 12/21/16 19:16 - 12/26/16 06:59 Intake Total 1436 ml 300 ml 4995 ml Output Total 1850 ml 1000 ml 16058 ml Balance -414 ml -700 ml -41524 ml Intake Oral 1436 ml 300 ml 3938 ml IV Total 1057 ml Output Urine Total 1850 ml 1000 ml 07813 ml # Voids 2 # Bowel Movements 0 0 Exam General appearance: Awake, alert, oriented x3. In no acute distress. HEENT: Atraumatic. Moist mucous membranes. Positive for icteric sclerae. PERRLA. No JVD. No lymphadenopathy. No thyroid enlargement. (+) nystagmus. Heart: Regular rhythm. Normal S1, S2. Lungs: Clear to auscultation bilaterally. No wheezing. No rhonchi. No accessory muscle use. Abdomen is soft, obese, nontender, nondistended. Active bowel sounds. Extremities: Trace edema on the lower extremity. Skin: Positive for spider angiomata on the upper chest. Positive jaundice. Lab and Diagnostics Result Diagram: 12/26/16 0600 12/26/16 0600 X-Rays, CTs and MRIs X-RAY CHEST, TWO VIEWS ([id number]) IMPRESSION: No acute disease is seen in the two-view chest. Cause of cough is not identified. Dictated by: Dandy Castro M.D. on 12/21/2016 at 21:00 Approved by: Dandy Castro M.D. on 12/21/2016 at 21:01 CT BRAIN WITHOUT CONTRAST ([id number]) IMPRESSION: No acute intracranial abnormalities found. Because of unsteady gait is not identified. Dictated by: Dandy Castro M.D. on 12/21/2016 at 20:39 Approved by: Dandy Castro M.D. on 12/21/2016 at 20:42 12-lead ECG Normal sinus rhythm with a rate of 82 Prolonged NV interval of 210 Prolonged QT interval of 464 Plan Impression ASSESSMENT: 1. Symptomatic hyponatremia. - Euvolemia. - Multifactorial: polydipsia, chlorthalidone, SIADH. - SIADH: risk factor being on seroquel, Na level worsens after NS administration. Initial UA (low sp gr, 1.005) and high UOP speak against SIADH After being on fluid restriction, his urine osm has risen indicating concurrent ADH release. In this case could be related to antipsychotic med, seroquel. 2. Alcoholic liver cirrhosis. 3. Confusion and ataxia-resolved. (+) nystagmus per exam. Suspected Wernicke encephalopathy. 4. Type 2 diabetes. 5. Hypertension. 6. Anemia, low ferritin and Tsat. high risk of GIB given h/o liver cirrhosis and EV. Plan: Fluid restriction 50 oz per day. Continue Thiamine supplement. Continue FESO4 supplement. F/u in 1-2 weeks. Thierry Watkins MD Dec 26, 2016 12:00
[2016-12-26] MEDS ORDERED: FERR-74 PO (12:04)
[2016-12-26] MEDS ORDERED: THIA100T64 PO (12:04)
[2016-12-26] MEDS ORDERED: AMLO5TAB2 PO (12:05)
[2016-12-26] MEDS ORDERED: SODI1TAB2 PO (12:17)
--- NOTE | 2016-12-26 12:21 | PCM.DIMED ---
Discharge Instructions Date of Service Dec 26, 2016 Dates of Hospitalization Dec 22, 2016 at 01:04 Discharge Diagnosis Discharge Diagnosis Symptomatic hyponatremia, likely multifactorial, polydipsia, medication induced , SIADH, Alcoholic liver cirrhosis. acute encephalopathy with ataxia, probable Wernicke encephalopathy. Type 2 diabetes. Hypertension. Anemia, likely combination of ACD and PANCHO. Medication Instructions Additional med instructions Please take [id number] daily, stop taking LIsinopril and furosemide Please take iron pill, Ferrous sulfate 325mg twice a day please take Salt tablet 1gm twice a day Please continue vitB1, thiamine 100mg po daily Diet Discharge Diet: No restrictions Activity Discharge Activity: Outpatient Physical Therapy Patient Instructions Patient Instructions You were hospitalized with multiple conditions, low sodium levels, severely reduced from normal range, which likely to be related to your habit of drinking water and medication or both. Please restrict your fluid intake 50oz/day as directed, Please follow up with kidney doctor in 1-2weeks for follow up Follow-up Provider: Thierry Watkins MD Follow-up with PCP in: 2 weeks Kenya Holland MD Dec 26, 2016 12:16
--- NOTE | 2016-12-26 13:04 | NUR ---
Social Work:multidisciplinary rounds/discharge: Data: EMR reviewed. Pt is on day 4 of hospitalization. Pt is medically stable for discharge today. PT has cleared pt for home no needs. Pt has declined CD resources. No discharge needs identified. All updated and agreeable to plan. Assessment: Pt who is independent at baseline, capable of self care at this time. Plan: Pt will discharge home today via POV. PT has cleared pt for home no needs. Pt has declined CD resources. No discharge needs identified. All updated and agreeable to plan. ROBERTO Mckinley
--- NOTE | 2016-12-26 13:29 | NUR ---
Discharge Note PIV removed prior to d/c fully intact. Medications from home returned to pt from pharmacy. D/c instructions reviewed with pt and he was offered opportunity to ask questions. Pt verbalized understanding and he also had them written on paper to take home with him for reference. Notified of when to f/u with MD, PCP and board turner. Pt took all personal belongings with him. Pt left in w/c with CARE NAVIGATOR and friend.
--- NOTE | 2016-12-26 22:32 | PCM.DC.MED ---
Discharge Summary Date of Service Dec 26, 2016 Dates of Hospitalization Date of Hospital Admission Dec 22, 2016 at 01:04 Date of Discharge: Dec 26, 2016 Providers: Admitting Physician: Binu Crews MD Primary Care Physician: Patric Arvizu DO Attending Physician: Kenya Rooney MD Diagnosis at Time of Discharge Diagnosis at Time of Discharge Symptomatic hyponatremia, likely multifactorial, polydipsia, medication induced , SIADH, Alcoholic liver cirrhosis. acute encephalopathy with ataxia, probable Wernicke encephalopathy. Type 2 diabetes. Hypertension. Anemia, likely combination of ACD and PANCHO. Consultations nephrology Procedures XRay, CTs & MRIs X-RAY CHEST, TWO VIEWS ([id number]) IMPRESSION: No acute disease is seen in the two-view chest. Cause of cough is not identified. Dictated by: Dandy Castro M.D. on 12/21/2016 at 21:00 Approved by: Dandy Castro M.D. on 12/21/2016 at 21:01 CT BRAIN WITHOUT CONTRAST ([id number]) IMPRESSION: No acute intracranial abnormalities found. Because of unsteady gait is not identified. Dictated by: Dandy Castro M.D. on 12/21/2016 at 20:39 Approved by: Dandy Castro M.D. on 12/21/2016 at 20:42 ECG 12 Lead Normal sinus rhythm with a rate of 82 Prolonged CO interval of 210 Prolonged QT interval of 464 Brief History HPI obtained by on 12/22 Jonathan Rosen is a 51 year old man with past medical history significant for alcohol-related cirrhosis, iron deficiency anemia, non-insulin using diabetes mellitus, CVA, and chronic pain associated with lumbar DJD who presents to the ED due to progressive fatigue, dizziness, and difficulty walking over the past week. These symptoms seem to correlate to the initiation of new diuretics including furosemide 40 mg daily and chlorthalidone 25 mg daily on 12/15/16. Patient also notes that he has had slurring of speech over the last month but no other focal weakness. 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 When asked about his alcohol use he states he drinks 1 or 2 beers a day. Additional history obtained from the patient's close friend and in review of Dr. Ludwig Suárez's notes it is evident the patient drinks heavily. The patient is followed by environmental epidemiologist in [place] for alcohol-related cirrhosis and esophageal varices that have not required intervention. He also follows with Dr. Ludwig Suárez for normocytic hypochromic anemia. In the ED vitals 36.8, pulse 77, respiratory rate 21, blood pressure 116/65, pulse oximetry 95% on room air. Labs were remarkable for sodium of 113, potassium 3.4, bilirubin 5.6, AST 12, ALT 60, alkaline phosphatase 258, ammonia 111, serum osmolality 260, and urine osmolality of 266. CT of the head and chest x-ray were unremarkable. Patient admitted for management of hyponatremia. Hospital Course Jonathan Rosen is a 51 year old man with past medical history significant for alcohol-related cirrhosis, iron deficiency anemia, non-insulin using diabetes mellitus, CVA, and chronic pain associated with lumbar DJD who presents to the ED due to progressive fatigue, dizziness, and difficulty walking over the past week. Admitted for management of hyponatremia. brief hospital course Patient was admitted with severe hyponatremia initial Na level 113, patient was started on fluid restriction. It was thought to be SIADH and likely due to chlorthalidone, which was held. Patient appeared euvolemic on exam, eventually sodium level increased and remained stable 127-128, pt was initially confused, ataxic, nystagmus+ overall symptoms improved as sodium level increased. no clear etiologies for SIADH found, TSH/cortisol level was WNL. Ther was component of hepatic encephalopathy suspected for confusion, therefore lactulose was tried but didn't help sx much. There was also suspicion of Wernicke's encephalopathy given alcohol drinking. therefore, patient was started on thiamine #. Encephalopathy and ataxia, POA, active and improving.. - likely multifactorial, including hepatic encephalopathy and severe hyponatremia. - Brain CT normal. - Treatment as below. - Nursing to assist with ambulation. We will increase lactulose to 4 times a day just to see if she gets any improvement from this. I believe that a lot of his confusion relates to his hyponatremia. - Mentation appears improved from one day prior, continue to monitor . #. Euvolemic hypotonic hyponatremia, present on admission, active and improving. - Etiology is unclear, but likely multifactorial including SIADH, polydipsia, and recent addition of chlorthalidone. - On presentation sodium of 113 with urine osmolality 266, urine sodium 26, serum osmolality 260 - TSH 1.320. Cortisol level normal. - SIADH risk factors: medications (Seroquel, Chlorthalidone) and polydipsia. No recent surgery, normal brain CT, normal CXR. Consider CT chest to rule out malignancy if symptoms not improve. - Continue fluid restriction of 800mls per day. - Hold chlorthalidon, will continue Seroquel at least at this time. - Nephrology consulted. Appreciate time and recommendations. Nephrology did stop hypertonic yesterday. #. Elevated liver enzymes, present on admission, active and stable. - Patient has no abdominal pain. - AST and ALT in ratio consistent with alcohol abuse. Interestingly alkaline phosphatase and bilirubin are also elevated. - If at this time cholestatic pattern is still present may consider abdominal ultrasound condition does not continue to resolve. -This may represent alcohol-induced hepatitis. - Liver functions are slowly downward trending - Continue to monitor, for clinical as well as laboratory improvement. #. Alcohol abuse with possible mild withdrawal syndrome, present on admission, active and improving. - Alcohol level of 99. The patient states he has not been drinking for last year except for one beer during lunch prior to admission. Patient not forthcoming with quantity of alcohol. - AST and ALT in ratio consistent with alcohol abuse. - Continue CIWA protocol. - Case Management referral placed for alcohol cessation and resources. #. Cirrhosis, present on admission, chronic and stable. - Meld score of 16, conveying a 6% 3 month mortality. - Stigmata present including spider angiomas and mild tremors. - Patient states he has esophageal varices but they have not required banding. - Managed by environmental epidemiologist in [place]. Consider requesting records. - Patient states that he has been checked for hepatitis C and HIV which were both negative recently. #. Diabetes mellitus 2, present on admission, chronic. - Home regimen includes Januvia and glipizide. Will hold at this time. - We will continue Lantus, increase to 10 units daily at bedtime given elevated a.m. blood sugar, in addition to increasing to medium dose correctional scale. - Hemoglobin A1c 5.2. Chronic pain, present on admission, ongoing and stable. - Continue home regimen of Gabapentin 600 mg 3 times a day. - Continue home regimen of oxycodone 5 mg every 6 hours as needed for pain. Exam Vital Signs (Last) Date Time Temp Pulse Resp B/P Pulse Ox O2 Delivery O2 Flow Rate FiO2 12/26/16 06:31 36.9 74 18 123/67 95 Room Air Exam pt was examined on the day of d/c Test 12/21/16 20:24 12/21/16 21:35 12/21/16 21:50 12/21/16 23:48 Urine Culture Reflexed Not indicated Hemoglobin A1c 5.2% (4.8-5.6) Prothrombin Time 14.4sec (8.1-12.5) Prothromb Time International Ratio 1.34ratio Ammonia 111ug/dL (18-53) Troponin T 0.010ug/L (0.0-0.011) Pro-B-Type Natriuretic Peptide 45.58pg/mL (0-121) Lipase 58U/L (13-60) Hold Simms Top Tube Received (Received) Alcohols 99mg/dL (0-10) Thyroid Stimulating Hormone (TSH) 1.320uIU/mL (0.450-4.500) Cortisol 9.9ug/dL (.) Test 12/22/16 01:34 12/22/16 08:05 12/23/16 02:15 12/23/16 17:35 Urine Random Sodium 26mEq/L Hematology Comments Phosphorus Level 2.3mg/dL (2.5-4.9) Direct Bilirubin 4.4mg/dL (0.0-0.3) Hold Candia Top Tube Received (Received) Test 12/24/16 03:40 12/25/16 09:30 12/25/16 10:45 12/26/16 06:00 Magnesium Level 1.9mg/dL (1.6-2.6) Osmolality 278 (275-300) Iron Level 41ug/dL (35-150) Total Iron Binding Capacity 378ug/dL (250-450) Percent Iron Saturation 11%sat (15-50) Unsaturated Iron Binding 337.1ug/dL Ferritin 60ng/mL (30-400) Urine Color Yellow (YELLOW) Urine Appearance Clear (CLEAR,HAZY) Urine pH 8.0 (5.0-8.0) Urine Specific [place] 1.010 (1.003-1.035) Urine Protein Negativemg/dL (NEG,TRACE) Urine Glucose (UA) >1000mg/dL (NEGATIVE) Urine Ketones Negativemg/dL (NEGATIVE) Urine Occult Blood Negative (NEGATIVE) Urine Nitrite Negative (NEGATIVE) Urine Bilirubin Small (NEGATIVE) Urine Ictotest Positive (Negative) Urine Urobilinogen 1.0mg/dL (NORMAL) Urine Leukocyte Esterase Negative (NEGATIVE) Urine RBC 0-2/hpf (0-2) Urine WBC 0-5/hpf (0-5) Urine Epithelial Cells None/hpf (NONE-MOD) Urine Crystals None seen (NONE SEEN) Urine Bacteria None/hpf (NONE-FEW) Urine Hyaline Casts None/lpf (NONE) Urine Granular Casts None seen (NONE SEEN) Urine Waxy Casts None seen (NONE SEEN) Urine Red Blood Cell Casts None seen (NONE SEEN) Urine White Blood Cell Casts None seen (NONE SEEN) Urine Mucus None seen (None Seen) Urine Trichomonas None seen (NONE SEEN) Urine Yeast None (NONE SEEN) Urinalysis Comment None Urine Osmolality 484mOs/kH2O (250-1200) White Blood Count 8.8th/mm3 (3.8-10.1) Red Blood Count 3.49mil/mm3 (4.40-5.80) Hemoglobin 8.7g/dL (13.8-17.2) Hematocrit 27.7% (41.0-50.0) Mean Corpuscular Volume 79.4fL (81-100) Mean Corpuscular Hemoglobin 24.9pg (27.0-35.0) Mean Corpuscular Hemoglobin Concent 31.4% (32.0-37.0) Red Cell Distribution Width 24.9% (12.3-15.4) Platelet Count 190bil/L (150-400) Neutrophils (%) (Auto) 64.3% (40-74) Lymphocytes (%) (Auto) 12.3% (14-46) Monocytes (%) (Auto) 17.0% (4-12) Eosinophils (%) (Auto) 5.1% (0-5) Basophils (%) (Auto) 0.8% (0-3) Sodium Level 127mEq/L (134-144) Potassium Level 4.2mEq/L (3.5-5.2) Chloride Level 92mEq/L (97-108) Carbon Dioxide Level 21mmol/L (18-29) Blood Urea Nitrogen 11mg/dL (6-24) Creatinine 0.34mg/dL (0.76-1.27) Estimat Glomerular Filtration Rate 290mL/min (>59) Glucose Level 160mg/dL (60-99) Calcium Level 9.7mg/dL (8.5-10.1) Total Bilirubin 6.1mg/dL (0.0-1.2) Aspartate Amino Transf (AST/SGOT) 115U/L (0-50) Alanine Aminotransferase (ALT/SGPT) 54U/L (0-44) Alkaline Phosphatase 245U/L (25-150) Total Protein 8.2g/dL (6.4-8.4) Albumin 3.3g/dL (3.4-5.0) Discharge Medications Discharge Medications Amlodipine (Amlodipine) 5 Mg Tablet 5 MG PO DAILY Prescribed by: KENYA ROONEY MD Chlorthalidone (Chlorthalidone) 25 Mg Tablet 25 MG PO DAILY (Reported) Ferrous Sulfate (Feosol) 325 Mg Tablet 325 MG PO BIDWM Prescribed by: KENYA ROONEY MD Gabapentin (Neurontin) 300 Mg Capsule 600 MG PO TID (Reported) Glipizide (Glipizide) 10 Mg Tablet 10 MG PO DAILYWD (Reported) Morphine Sulfate ER (MS Contin) 15 Mg Tablet.er 15 MG PO q8hrs (Reported) Omeprazole Magnesium (Prilosec Otc) 20 Mg Tablet.dr 20 MG PO DAILY (Reported) Quetiapine Fumarate (Seroquel) 200 Mg Tablet 300 MG PO HS (Reported) Sitagliptin Phos (Januvia) 100 Mg Tablet 100 MG PO DAILY (Reported) Sodium Chloride (Sodium Chloride) 1 Gm Tablet 1 GM PO BID Prescribed by: KENYA ROONEY MD Thiamine Mononitrate (Vitamin B-1) 100 Mg Tablet 100 MG PO DAILY Prescribed by: KENYA ROONEY MD As needed Albuterol Sulfate (Ventolin HFA Inhaler) 200 Puff/18 Gm Inhaler 1 PUFF INH Q4 PRN PRN For Wheezing (Reported) Oxycodone (Roxicodone) 5 Mg Tablet 5 MG PO Q4-6H PRN PRN For Pain (Reported) Additional med instructions Please take [id number] daily, stop taking LIsinopril and furosemide Please take iron pill, Ferrous sulfate 325mg twice a day please take Salt tablet 1gm twice a day Please continue vitB1, thiamine 100mg po daily Followup Plan Disposition: home Discharge Diet: No restrictions Discharge Activity: Outpatient Physical Therapy Patient Instructions You were hospitalized with multiple conditions, low sodium levels, severely reduced from normal range, which likely to be related to your habit of drinking water and medication or both. Please restrict your fluid intake 50oz/day as directed, Please follow up with kidney doctor in 1-2weeks for follow up Follow-up Provider: Thierry Watkins MD Follow-up with PCP in: 2 weeks Time spent 65min Kenya Rooney MD Dec 26, 2016 22:32
== END 2016-12-26 13:10 | disposition home or self-care (01) | DRG 644 ==
LOC: SED 18:57 → OFED 12-22 01:04 → PCC 12-22 11:40 → MPC 12-24 13:16
PROVIDERS: ADMIT Hospitalist; ATTEND Internal Medicine
DX: E22.2 Syndrome of inappropriate secretion of antidiuretic hormone (principal); I85.00 Esophageal varices without bleeding; E72.20 Disorder of urea cycle metabolism, unspecified; E51.2 Wernicke's encephalopathy; E11.9 Type 2 diabetes mellitus without complications; K70.40 Alcoholic hepatic failure without coma; K70.30 Alcoholic cirrhosis of liver without ascites; I78.1 Nevus, non-neoplastic; M51.16 Intervertebral disc disorders with radiculopathy, lumbar region; R35.8 Other polyuria; G89.29 Other chronic pain; R27.0 Ataxia, unspecified; F10.10 Alcohol abuse, uncomplicated; Y90.4 Blood alcohol level of 80-99 mg/100 ml; D50.0 Iron deficiency anemia secondary to blood loss (chronic); D64.9 Anemia, unspecified; Z79.891 Long term (current) use of opiate analgesic; Z87.891 Personal history of nicotine dependence

== ENCOUNTER 2017-02-14 23:40 | Inpatient (IN) | payer MEDICARE, MEDICAID ==
[~2017-02-14] VITALS: Ht 175.3 cm; Wt 88.4 kg
[~2017-02-14 23:40] MED LIST changes: +ALBU18HF INH; +AMLO5TAB2 PO; +FERR-74 PO; +GLIP10TA10 PO; -GLPZ5T PO; +HYG25 PO; -IRON PO; -LISI10TA2 PO; -OMEP-113 PO; +OMEP20TA24 PO; +SITA100T12 PO; +SODI1TAB2 PO; +THIA100T64 PO
[2017-02-14 23:56] VITALS: BP 129/69; PULSE 90; RESP 18; O2SAT 99
[2017-02-15] VITALS (11 sets, daily range): BP systolic 102–157; BP diastolic 57–95; PULSE 73–98; RESP 16–22; O2SAT 95–100
--- NOTE | 2017-02-15 01:16 | ED.REPORT ---
HPI-General Illness Date of Service Feb 15, 2017 ED Provider: Guanako Barker MD Pt is a 51 y/o male with a history of alcohol cirrhosis, DM, and hypertension who presents to the ED c/o severe confusion onset a few days ago. Pt's girlfriend reports that he has been out of it for a few days, and thought it was related to hyponatremia as he has had similar symptoms in the past. Additional symptoms include melena and fatigue. Nursing Notes Stated Complaint: CONFUSION Chief Complaint: General Complaint Nursing Notes Reviewed: Yes Allergies: Coded Allergies: spironolactone (Verified Adverse Reaction, Mild, nipples hurt, 02/14/17) Scheduled Amlodipine (Amlodipine) 5 Mg Tablet 5 MG PO DAILY Chlorthalidone (Chlorthalidone) 25 Mg Tablet 25 MG PO DAILY Ferrous Sulfate (Feosol) 325 Mg Tablet 325 MG PO BIDWM Gabapentin (Neurontin) 300 Mg Capsule 600 MG PO TID Glipizide (Glipizide) 10 Mg Tablet 10 MG PO DAILYWD Morphine Sulfate ER (MS Contin) 15 Mg Tablet.er 15 MG PO q8hrs Omeprazole Magnesium (Prilosec Otc) 20 Mg Tablet.dr 20 MG PO DAILY Quetiapine Fumarate (Seroquel) 200 Mg Tablet 300 MG PO HS Sitagliptin Phos (Januvia) 100 Mg Tablet 100 MG PO DAILY Sodium Chloride (Sodium Chloride) 1 Gm Tablet 1 GM PO BID Thiamine Mononitrate (Vitamin B-1) 100 Mg Tablet 100 MG PO DAILY Scheduled PRN Albuterol Sulfate (Ventolin HFA Inhaler) 200 Puff/18 Gm Inhaler 1 PUFF INH Q4 PRN PRN For Wheezing Oxycodone (Roxicodone) 5 Mg Tablet 5 MG PO Q4-6H PRN PRN For Pain General Time Seen by MD: 01:16 Chief Complaint Other (Confusion) Hx Obtained From: Spouse (girlfriend) Arrived By: Walk-in Sudden in Onset?: No Symptom Duration: Constant Quality: Painful Severity: Current: Mild Severity: Maximum: Moderate Recent Healthcare: Recent doctor visit, Recent hospitalization Similar Sx Previous: Yes Past Medical History Past Medical History History of alcohol cirrhosis Diabetes Hypertension GERD Plan sleep apnea and uses CPAP History of CVA in 2005 Q GI bleed and esophageal varices Past Surgical History Status post left 3 for lateral discectomy by Dr. Fitzpatrick in 2014 for herniated nucleus pulposis Elbow repair Smoking History Former Smoker Social History Alcohol Use: In recovery Other Social History: Good social support, Ambulatory Status Independent Review of Systems Full Review of Systems Constitutional: Reports: Fatigue Respiratory: Denies: Shortness of breath Cardiovascular: Denies: Chest pain GI: Reports: Bloody/tarry stool, Melena Psychiatric: Reports: Confusion Complete sys rev & neg: except as marked. Physical Exam Vital Signs Vital Signs Date Time Temp Pulse Resp B/P Pulse Ox O2 Delivery O2 Flow Rate FiO2 02/14/17 23:56 37.1 90 18 129/69 99 Room Air Initial VS: Reviewed Head / Eyes: Atraumatic, Normocephalic Neck: Supple, Full range of motion General: looks dry confused Blister under nose Respiratory / Chest: Atraumatic, Breath sounds NL, Breath sounds = bilat, No respiratory distress Cardiovascular: Heart rate NL, Regular rhythm, Heart sounds NL Mild lower leg edema bilaterally Abdomen: Soft, Non-tender Increased bowel sounds Ascites Skin: Warm, Dry Blister under nose Interpretation & Diagnostics Lab Results Interpretation Result Diagram: 02/15/17 0435 02/15/17 0117 Test 02/15/17 01:17 02/15/17 01:18 02/15/17 01:20 02/15/17 01:40 Neutrophils (%) (Auto) 67.6% (40-74) Lymphocytes (%) (Auto) 17.8% (14-46) Monocytes (%) (Auto) 11.6% (4-12) Eosinophils (%) (Auto) 1.7% (0-5) Basophils (%) (Auto) 1.1% (0-3) Sodium Level 137mEq/L (134-144) Potassium Level 3.5mEq/L (3.5-5.2) Chloride Level 97mEq/L (97-108) Carbon Dioxide Level 22mmol/L (18-29) Blood Urea Nitrogen 15mg/dL (6-24) Creatinine 0.60mg/dL (0.76-1.27) Estimat Glomerular Filtration Rate 150mL/min (>59) Glucose Level 377mg/dL (60-99) Calcium Level 9.6mg/dL (8.5-10.1) Magnesium Level 1.9mg/dL (1.6-2.6) Total Bilirubin 2.9mg/dL (0.0-1.2) Aspartate Amino Transf (AST/SGOT) 91U/L (0-50) Alanine Aminotransferase (ALT/SGPT) 57U/L (0-44) Alkaline Phosphatase 189U/L (25-150) Troponin T < 0.010ug/L (0.0-0.011) Total Protein 9.0g/dL (6.4-8.4) Albumin 3.4g/dL (3.4-5.0) Alcohols < 10mg/dL (0-10) Hold Simms Top Tube Received (Received) Ammonia 266ug/dL (18-53) Prothrombin Time 13.1sec (8.1-12.5) Prothromb Time International Ratio 1.22ratio Test 02/15/17 04:00 02/15/17 04:35 Urine Color Yellow (YELLOW) Urine Appearance Clear (CLEAR,HAZY) Urine pH 7.0 (5.0-8.0) Urine Specific [place] 1.031 (1.003-1.035) Urine Protein Negativemg/dL (NEG,TRACE) Urine Glucose (UA) >1000mg/dL (NEGATIVE) Urine Ketones Negativemg/dL (NEGATIVE) Urine Occult Blood Negative (NEGATIVE) Urine Nitrite Negative (NEGATIVE) Urine Bilirubin Negative (NEGATIVE) Urine Urobilinogen 1.0mg/dL (NORMAL) Urine Leukocyte Esterase Negative (NEGATIVE) Urine RBC 0-2/hpf (0-2) Urine WBC 0-5/hpf (0-5) Urine Epithelial Cells Occasional/hpf (NONE-MOD) Urine Crystals None seen (NONE SEEN) Urine Bacteria None/hpf (NONE-FEW) Urine Hyaline Casts None/lpf (NONE) Urine Granular Casts None seen (NONE SEEN) Urine Waxy Casts None seen (NONE SEEN) Urine Red Blood Cell Casts None seen (NONE SEEN) Urine White Blood Cell Casts None seen (NONE SEEN) Urine Mucus None seen (None Seen) Urine Trichomonas None seen (NONE SEEN) Urine Yeast None (NONE SEEN) Urinalysis Comment None Urine Culture Reflexed Not indicated White Blood Count 4.5th/mm3 (3.8-10.1) Red Blood Count 3.35mil/mm3 (4.40-5.80) Hemoglobin 9.9g/dL (13.8-17.2) Hematocrit 30.0% (41.0-50.0) Mean Corpuscular Volume 89.6fL (81-100) Mean Corpuscular Hemoglobin 29.6pg (27.0-35.0) Mean Corpuscular Hemoglobin Concent 33.0% (32.0-37.0) Red Cell Distribution Width 17.8% (12.3-15.4) Platelet Count 159bil/L (150-400) ECG Interpretation ECG Interpretation: Sinus rhythm, rate 89 Prolonged QT interval Time: 01:08 Interpreted by: ED physician CT Head Interpretation No acute intracranial abnormality. Study: Head CT no contrast Interpretation / Wet Read by: Interpret - Radiologist Re-Eval/Medical Decision Med Decision/Clinical Course 51-year-old with hepatic failure and ascites presents with confusion, but has begun with melanotic stool here. No vomiting of blood, hemodynamically stable, and hemoglobin is adequate. Still possibly variceal bleeding, but not showing any significant volume of blood loss yet. Begun with Protonix as a drip, octreotide, and Rocephin per protocol. Admitted now for additional management to the medicine service with consultation to gastroenterology. His ammonia is markedly elevated, probably secondary to the GI bleeding and his underlying liver disease. Lactulose decontamination of the bowel. Source of Hx: Old records Time of Eval: 03:39 Re-Evaluation/Progress Note: Discussed plan with admission. Pt's girlfriend understands and agrees with plan. All questions addressed. Consultation : Referral / Consult Name: Binu Crews MD Call Returned at: 03:58 Reel Tender: Will see patient, Agrees with plan, Accepts admit Note: Discussed pt's case with hospitalist, Dr. Crews. He accepts admission. Counseled Regarding: Diagnosis, Lab results, Need for admission Discharge & Departure Primary Impression: Gastrointestinal bleed GI bleed type/associated pathology: unspecified gastrointestinal hemorrhage type Qualified Code: K92.2 - Gastrointestinal hemorrhage, unspecified Additional Impressions: Altered mental status Altered mental status type: unspecified Qualified Code: R41.82 - Altered mental status, unspecified Hyperammonemia Alcoholic cirrhosis Ascites presence: with ascites Qualified Code: K70.31 - Alcoholic cirrhosis of liver with ascites Disposition: ADMITTED TO HOSPITAL Discharge Condition All VS Reviewed: Yes Condition: Stable Referrals: ARNOLD,LATRICE J DO (PCP) Crit Care Except Billable Proc Time Spent: 30-74 minutes (thirty minutes) Services Performed: Patient management by me, Time spent at bedside, Reviewing test results, Reviewing imaging, Discussing patient care, Documentation in record, Time with fam/surrogate Scribe Attestation Portions of this note were transcribed by Giselle Avila. I, Dr. Barker, personally performed the history, physical exam and medical decision-making; I reviewed and confirmed the accuracy of the information in the transcribed note. copies to: LATRICE HAMMER Christopher W MD Feb 15, 2017 01:16 Giselle Avila Feb 15, 2017 01:26
[2017-02-15 01:23] LABS: BASOPHILS % (AUTO) 1.1 % (0-3); EOSINOPHILS % (AUTO) 1.7 % (0-5); MONOCYTES % (AUTO) 11.6 % (4-12); Mean Corpuscular Hemoglobin 29.9 pg (27.0-35.0); Mean Corpuscular Volume 89.6 fL (81-100); NEUTROPHILS % (AUTO) 67.6 % (40-74); Platelet Count 179 bil/L (150-400)
[2017-02-15 01:47] LABS: TROPONIN T < 0.010 ug/L (0.0-0.011)
[2017-02-15 02:03] LABS: Magnesium 1.9 mg/dL (1.6-2.6)
[2017-02-15 02:26] LABS: INR 1.22 ratio
[2017-02-15] MEDS ORDERED: Lactulose 20 Gm/30 mL 30 mL Syrup PO ONE (03:45)
[2017-02-15] MEDS ORDERED: cefTRIAXone Inj 2,000 MG in Dextrose 5% Minibag Plus 50 ML IV ONE (04:00)
[2017-02-15] MEDS ORDERED: Octreotide Inj 500 MCG in 0.9% Sodium Chloride 100 ML IV ONE (04:00)
[2017-02-15] MEDS ORDERED: Pantoprazole Inj 80 MG in 0.9% Sodium Chloride 100 ML IV ONE (04:00)
[2017-02-15] MEDS ORDERED: Pantoprazole Inj 80 MG in 0.9% Sodium Chloride 80 ML IV ONE (04:03)
[2017-02-15] MEDS ORDERED: Polyethylene Glycol (PEG) 17 Gm Powder PO PRN (04:05)
[2017-02-15] MEDS ORDERED: Alum-Mag Hydrox-Simeth 30 mL Suspension PO PRN (04:05)
[2017-02-15] MEDS ORDERED: Ondansetron 2 mg/mL 2 mL Inj IVPUSH PRN (04:05)
[2017-02-15 04:17] LABS: APPEARANCE,URINE CLEAR (CLEAR,HAZY); COLOR,URINE YELLOW (YELLOW); OCCULT BLOOD,URINE NEGATIVE (NEGATIVE)
[2017-02-15] MEDS ORDERED: Glucose 40% Oral Gel 15 Gm Tube PO PRN (04:25)
--- NOTE | 2017-02-15 04:30 | PCM.HPMED ---
Subjective Date of Service Feb 15, 2017 Primary Provider: Admitting Physician: Primary Care Physician: Patric Arvizu DO Attending Physician: Admit Status: From the Emergency Department, Full Admit, Remote Telemetry Chief Complaint: Confusion with dark colored stools History of Present Illness: Jonathan Rosen is a 51 y/o male with Alcohol-related cirrhosis, iron deficiency anemia, non-insulin using diabetes mellitus, CVA, and chronic pain associated with lumbar DJD who presents to [facility] emergency department with confusion Patient was poor historian and was confused and sedated. Information gathered from the ED records and previous medical records. Patient reported to the staff he has been having some bloody and sometimes dark colored stools. Patient is well known cirrhotic patient with Alcohol related problems. He has Hepatic encephalopathy as well as history of variceal bleeding as well in the past. Case discussed with Dr Barker, vitals stable. Ammonia levels elevated 266. Lactulose given. Patient placed on Protonix and Octreotide drips. Patient also given Versed for agitation. Review of Systems: unable to be obtained due to confusion Allergies Coded Allergies: spironolactone (Verified Adverse Reaction, Mild, nipples hurt, 02/14/17) Home Medications From Next [facility], not yet confirmed Jonathan Rosen [id number] 1965 02/03/2017 08:40 AM 06/11 amlodipine 5 mg tablet take 1 tablet by oral route every day Aspirin Low-Strength 81 mg chewable tablet chew 1 tablet by oral route every day clindamycin 1 % lotion apply by topical route 2 times every day a thin layer to the affected area(s) ferrous sulfate 325 mg (65 mg iron) tablet take 1 tablet by oral route 2 times every day gabapentin 600 mg tablet take 1 tablet by oral route 3 times every day glipizide 5 mg tablet take 1 tablet by oral route every morning and 2 tablet by oral route in the evening before meals Januvia 100 mg tablet take 1 tablet by oral route every day lactulose 20 gram/30 mL oral solution take 30 milliliter by oral route 2 times every day. Hold if have >3 loose stool/day MS Contin 15 mg tablet,extended release take 1 tablet by oral route every 8 hours niacin 250 mg tablet take 1 tablet by oral route every day omeprazole 20 mg capsule,delayed release take 1 capsule (20MG) by oral route every day before a meal oxycodone 5 mg tablet take 1 tablet by oral route every 6 hours as needed for pain Seroquel 300 mg tablet take 1 tablet by oral route every day sodium chloride 1 gram tablet Take one tablet by mouth twice daily thiamine mononitrate (vitamin B1) 100 mg tablet Take one tablet by mouth daily Ventolin HFA 90 mcg/actuation aerosol inhaler inhale 2 puff by inhalation route every 4 - 6 hours as needed PMH Diabetes mellitus type II Insomnia Depression Sleep apnea Cirrhosis Lumbar degenerative disc disease PTSD Hypertension Hyperlipidemia History of stroke Esophageal varices . Surgical History Lumbar spine surgery in 2013 EGD Elbow surgery in 1994 Family History Paternal grandfather - rheumatoid arthritis Father and mother - healthy Social History Hx Alcohol Use: Yes Hx Substance Use: Yes Hx Tobacco Use: Yes Smoking Status: Former Smoker Living Arrangement: with Family Exam Vital Signs Vital Sign - Last Date Time Temp Pulse Resp B/P Pulse Ox O2 Delivery O2 Flow Rate FiO2 02/14/17 23:56 37.1 90 18 129/69 99 Room Air Exam General: Alert, Oriented X3, Cooperative, No acute Distress Eyes: PERRLA, Scleral Anicteric Mouth: Mouth Normal, Mucous Membranes Moist/[place] Neck: Supple, no Thyromegaly, trachea central. Chest & Lungs: Clear to auscultation & percussion, No adventitious breath sounds, no crackles, no wheeze Cardiovascular: Normal S1, Normal S2, No Murmurs/Rubs/Gallops, Regular Rate/ Rhythm, Murmur, Other (No JVD, no peripheral edema) Pulses: Radial (present and equal), Dorsalis Pedi (present and equal) Abdomen: Soft, Non-tender, Non-distended, Normoactive bowel tones. Musculoskeletal: Unremarkable. Normal range of motion, no swollen or erythematous joints Extremities: No edema, no cyanosis, no clubbing. Skin: No rashes. Warm and dry, no erythematous areas Neurological: Grossly neurologically intact, has generalized weakness, Normal Speech, Sensation Intact Lymphatic: Lymph nodes Cervical and Axillary not palpable Lab and Diagnostics Labs Laboratory Tests Test 02/15/17 01:17 02/15/17 01:18 02/15/17 01:20 02/15/17 01:40 White Blood Count 4.7th/mm3 (3.8-10.1) Red Blood Count 3.75mil/mm3 (4.40-5.80) Hemoglobin 11.2g/dL (13.8-17.2) Hematocrit 33.6% (41.0-50.0) Mean Corpuscular Volume 89.6fL (81-100) Mean Corpuscular Hemoglobin 29.9pg (27.0-35.0) Mean Corpuscular Hemoglobin Concent 33.3% (32.0-37.0) Red Cell Distribution Width 17.8% (12.3-15.4) Platelet Count 179bil/L (150-400) Neutrophils (%) (Auto) 67.6% (40-74) Lymphocytes (%) (Auto) 17.8% (14-46) Monocytes (%) (Auto) 11.6% (4-12) Eosinophils (%) (Auto) 1.7% (0-5) Basophils (%) (Auto) 1.1% (0-3) Sodium Level 137mEq/L (134-144) Potassium Level 3.5mEq/L (3.5-5.2) Chloride Level 97mEq/L (97-108) Carbon Dioxide Level 22mmol/L (18-29) Blood Urea Nitrogen 15mg/dL (6-24) Creatinine 0.60mg/dL (0.76-1.27) Estimat Glomerular Filtration Rate 150mL/min (>59) Glucose Level 377mg/dL (60-99) Calcium Level 9.6mg/dL (8.5-10.1) Magnesium Level 1.9mg/dL (1.6-2.6) Total Bilirubin 2.9mg/dL (0.0-1.2) Aspartate Amino Transf (AST/SGOT) 91U/L (0-50) Alanine Aminotransferase (ALT/SGPT) 57U/L (0-44) Alkaline Phosphatase 189U/L (25-150) Troponin T < 0.010ug/L (0.0-0.011) Total Protein 9.0g/dL (6.4-8.4) Albumin 3.4g/dL (3.4-5.0) Hold Simms Top Tube Received (Received) Ammonia 266ug/dL (18-53) Prothrombin Time 13.1sec (8.1-12.5) Prothromb Time International Ratio 1.22ratio Test 02/15/17 04:00 Result Diagram: 02/15/17 0117 02/15/17 0117 Assessment & Plan Jonathan Rosen is a 51 y/o male with Alcohol-related cirrhosis, iron deficiency anemia, non-insulin using diabetes mellitus, CVA, and chronic pain associated with lumbar DJD who presents to [facility] emergency department with confusion 1 Acute Upper Gastrointestinal bleeding. Present on admission Etiology unclear Patient states he has esophageal varices but they have not required banding. - nothing by mouth with IV fluids resuscitations - Ceftriaxone IV for Spontaneous Bacterial peritonitis prophylaxis - Protonix drip and Octreotide drips continued - monitoring Hgb with transfusion trigged < 7 or symptomatic - Crisis Clinician consulted by Dr Barker 2 Acute on chronic Hepatic encephalopathy, Present on admission, active. Patient is a heavy drinker with known history of Hepatic encephalopathy and on Lactulose as outpatient - Lactulose continued to achieve 3-4 bowel movements per day. - consider adding Rifaximin to regimen - avoid benzodiazepine and high dose narcotics 3 Alcohol abuse, present on admission, active. - AST and ALT in ratio consistent with alcohol abuse. - CIWA protocol will be initiated when withdrawal symptoms are noted - Further discussion about alcohol cessation and resources to be given by Day Team. 4 Elevated liver enzymes secondary to Alcoholic Hepatitis with Cirrhosis Hepatitis Discriminant function score 17 therefore patient will not survival benefit from Prednisolone treatment - monitor levels at this time - need counseling for abstinence to prevent progression 5 Diabetes mellitus, chronic. - holding Januvia and glipizide. - medium Lispro correctional scale. - Hemoglobin A1c pending. 6 Hypertension, Chronic - continue Amlodipine 5 mg daily 7 Chronic pain syndrome - Continue home regimen of Gabapentin 600 mg 3 times a day and oxycodone 5 mg every 6 hours as needed for pain. - Acetaminophen as needed for mild pain/fever/headache - Bowel regimen as needed - Antiemetic as needed Patient admitted under inpatient status with expected length of stay > 2 midnights for severity of present symptoms, complexities of treatment plan and risk for adverse event . Resuscitation Status: CPR: Attempt Resuscitation Binu Crews MD Feb 15, 2017 04:10
[2017-02-15] MEDS ORDERED: Dextrose 10% 250 ML IV PRN (04:35)
[2017-02-15] MEDS: Pantoprazole Inj 80 MG, Pharmacy To Mix 1 EA in 0.9% Sodium Chloride 80 ML IV SCH ×4 (04:43→14:48)
[2017-02-15] MEDS ORDERED: 0.9% Sodium Chloride 1,000 ML IV ONE (04:45)
[2017-02-15 04:49] LABS: Mean Corpuscular Hemoglobin 29.6 pg (27.0-35.0); Mean Corpuscular Volume 89.6 fL (81-100)
[2017-02-15] MEDS: 0.9% Sodium Chloride 1,000 ML IV SCH ×2 (04:51→14:48)
--- NOTE | 2017-02-15 06:16 | NUR ---
Admit: pt admitted to [facility] room 3026. Pt placed on Tele showing SR. Vitals stable. Pt received Versed prior to transfer- upon arrival to floor pt awakes briefly to painful stimuli- over the past hour pt has began to awaken and is restless and confused. order receive for soft wrist restraints. Health history completed by recalling previous admission- pt unable to answer questions. med rec unable to be confirmed at this time. Care ongoing.
[2017-02-15] MEDS: Insulin LISPRO 300 Unit/3 mL Inj SUBQ SCH ×4 (08:06→20:26)
--- NOTE | 2017-02-15 10:00 | NUR ---
removed restraints Pt has become more alert and oriented since beginning of shift and is now answering most questions appropriately. Pt is still mumbling and forgetful. Per pts sister he is still not near baseline. Pt is impulsive and attempts to use bedside commode without using call light but is not combative or trying to pull lines or tubes. Restraints removed per MD, bed alarm in place and call light by patient.
[2017-02-15] MEDS ORDERED: Succinylcholine Chloride 20 mg/mL 5 mL Inj ONE (10:21)
[2017-02-15] MEDS ORDERED: Glycopyrrolate 0.2 MG/ML 1mL Inj ONE (10:21)
[2017-02-15] MEDS ORDERED: Ketamine 10 mg/mL 20 mL Inj ONE (10:21)
[2017-02-15] MEDS ORDERED: Propofol 10,000 mCg/mL 20 mL Inj ONE (10:21)
[2017-02-15] MEDS: Morphine ER 15 mg (MS Contin) Tablet PO SCH ×2 (11:45→20:19)
--- NOTE | 2017-02-15 12:00 | DRSVH ---
PROCEDURE: CT BRAIN WITHOUT CONTRAST ([id number]) INDICATIONS: confusion TECHNIQUE: Noncontrast 4.5 mm thick angled axial sections acquired from the foramen magnum to the vertex, with c oronal reformats. COMPARISON: [facility], CT, CT BRAIN WO CON, 12/21/2016, 20:29. FINDINGS: Image quality: Excellent. CSF spaces: Basal cisterns are patent. No extra-axial fluid collections. Ventricles are normal in size and shape. Brain: No midline shift. No intracranial masses or hemorrhage. Crowe-white matter interface is norm al. Skull and face: Calvarium and visualized facial bones are intact, without suspicious lesions. Sinuses: Visualized sinuses and mastoids are clear. IMPRESSION: 1. No acute intracranial process. Dictated by: Mary Ty M.D. on 02/15/2017 at 11:58 Approved by: Mary Ty M.D. on 02/15/2017 at 11:59
[2017-02-15 13:06] LABS: Mean Corpuscular Hemoglobin 29.5 pg (27.0-35.0); Mean Corpuscular Volume 90.6 fL (81-100)
--- NOTE | 2017-02-15 14:28 | PCM.CHPMED ---
Subjective Date of Service: Feb 15, 2017 Provider requesting consult: Binu Crews MD Primary Physician: Admitting Physician: Binu Crews MD Primary Care Physician: Patric Arvizu DO Attending Physician: Pedro Luis Bustillos MD Chief Complaint: Chief Complaint: CONFUSION WITH DARK COLORED STOOLS History of Present Illness: GASTROENTEROLOGY CONSULT: Attending Physician: Noman Cao MD Resident Physician: Elke Crow DO Jonathan Rosen is a 51-year-old with a history of alcohol-related cirrhosis, iron deficiency anemia, diabetes, CVA, and recent admission here in December for hepatic encephalopathy with ataxia and probable Wernicke's encephalopthy as well as hyponatremia secondary to SIADH who presented to the ED with his girlfriend for increased confusion. History obtained via chart review, the patient's sister, and the patient. Although the patient's contribution is somewhat limited due to encephalopathy. Additionally his girlfriend who was present at the time of admission and able to provide some history is not here at this time. Patient is a known cirrhotic patient with hepatic encephalopathy as well as history of variceal bleeding in the past. He denies any symptoms or memory of events leading up to this admission. Family reports being told that the patient was somewhat somnolent and more confused for 24-48 hours. Patient's sister reports ongoing alcohol use with intermittent periods of sobriety that typically last for a couple of weeks. She states that the patient's roommate told her that he has not been drinking alcohol for approximately two weeks. Patient denies drinking alcohol prior to admission and blood alcohol level in the ED was within normal limits. In the ED, he was afebrile with a mildly elevated BP of 142/88, HR 94 and maintaining O2 sats in the high 90s on room air. Labs were significant for H/H 11.2/23.6, serum glucose of 377, total bilirubin 2.9, AST/ALT 91/57, alk phos 189 and ammonia markedly elevated, probably secondary to the GI bleeding and his underlying liver disease. Thus Lactulose was started as well. Melanotic stool was noted in the ED and the patient was started on a Protonix drip, octreotide, and Rocephin. Review of Systems: Unable to perform complete review of systems secondary to patient condition PMH Past Medical History Diabetes mellitus type II Insomnia Depression Sleep apnea, uses CPAP Cirrhosis Lumbar degenerative disc disease PTSD Hypertension Hyperlipidemia History of stroke Esophageal varices History of alcohol cirrhosis GERD CVA in 2005 Bedside Blood Glucose: 370 Surgical History Lumbar spine surgery in 2013 EGD Elbow surgery in 1994 Home Medications Amlodipine 5 MG PO DAILY Chlorthalidone 25 MG PO DAILY Ferrous Sulfate 325 MG PO BIDWM Gabapentin 600 MG PO TID Glipizide 10 MG PO DAILYWD Morphine Sulfate ER 15 MG PO q8hrs Omeprazole Magnesium 20 MG PO DAILY Quetiapine Fumarate 300 MG PO HS Sitagliptin Phos 100 MG PO DAILY Sodium Chloride 1 GM PO BID Thiamine Mononitrate 100 MG PO DAILY Albuterol Sulfate 200 Puff/18 Gm Inhaler 1 PUFF INH Q4 PRN Oxycodone 5 MG PO Q4-6H PRN Allergies: Coded Allergies: spironolactone (Verified Adverse Reaction, Mild, nipples hurt, 02/14/17) Family History Family History Paternal grandfather - rheumatoid arthritis Father and mother - healthy Social History Hx Alcohol Use: YesAlcoholic Drinks Per Day: unknown pt unresponsiveHx Tobacco Use: Yes Smoking Status: Former Smoker Living Arrangement: with Family Exam Vital Signs Vital Sign - Last Date Time Temp Pulse Resp B/P Pulse Ox O2 Delivery O2 Flow Rate FiO2 02/15/17 05:26 37.4 83 18 142/88 95 Room Air Intake and Output 02/14/17 02/14/17 02/15/17 Cumulative From/Thru 15:00 23:00 07:00 02/14/17 23:56 - 02/15/17 06:40 Intake Total 1580 ml 1580 ml Output Total 1050 ml 1050 ml Balance 530 ml 530 ml Intake IV Total 1580 ml 1580 ml Output Urine Total 1050 ml 1050 ml General: Chronically ill-appearing, male in no acute distress. Speech somewhat delayed and mildly slurred (different than baseline per his family) HEENT: Normocephalic, atraumatic. PERRLA. Scleral icterus. Mucous membranes dry Lungs: Clear to auscultation bilaterally with no crackles, wheezes, or rhonchi. Cardiovascular: Regular rate/rhythm. No murmurs Abdomen: Soft, Non-tender, Non-distended, No masses, Normoactive bowel tones Extremities: No cyanosis or edema Skin: Mild jaundice, No obvious rashes or ulcerations Neurological: AOx3, No focal neurologic deficit. Lab and Diagnostics Labs Laboratory Tests Test 02/15/17 01:17 02/15/17 01:18 02/15/17 01:20 02/15/17 01:40 White Blood Count 4.7th/mm3 (3.8-10.1) Red Blood Count 3.75mil/mm3 (4.40-5.80) Hemoglobin 11.2g/dL (13.8-17.2) Hematocrit 33.6% (41.0-50.0) Mean Corpuscular Volume 89.6fL (81-100) Mean Corpuscular Hemoglobin 29.9pg (27.0-35.0) Mean Corpuscular Hemoglobin Concent 33.3% (32.0-37.0) Red Cell Distribution Width 17.8% (12.3-15.4) Platelet Count 179bil/L (150-400) Neutrophils (%) (Auto) 67.6% (40-74) Lymphocytes (%) (Auto) 17.8% (14-46) Monocytes (%) (Auto) 11.6% (4-12) Eosinophils (%) (Auto) 1.7% (0-5) Basophils (%) (Auto) 1.1% (0-3) Sodium Level 137mEq/L (134-144) Potassium Level 3.5mEq/L (3.5-5.2) Chloride Level 97mEq/L (97-108) Carbon Dioxide Level 22mmol/L (18-29) Blood Urea Nitrogen 15mg/dL (6-24) Creatinine 0.60mg/dL (0.76-1.27) Estimat Glomerular Filtration Rate 150mL/min (>59) Glucose Level 377mg/dL (60-99) Calcium Level 9.6mg/dL (8.5-10.1) Magnesium Level 1.9mg/dL (1.6-2.6) Total Bilirubin 2.9mg/dL (0.0-1.2) Aspartate Amino Transf (AST/SGOT) 91U/L (0-50) Alanine Aminotransferase (ALT/SGPT) 57U/L (0-44) Alkaline Phosphatase 189U/L (25-150) Troponin T < 0.010ug/L (0.0-0.011) Total Protein 9.0g/dL (6.4-8.4) Albumin 3.4g/dL (3.4-5.0) Alcohols < 10mg/dL (0-10) Hold Simms Top Tube Received (Received) Ammonia 266ug/dL (18-53) Prothrombin Time 13.1sec (8.1-12.5) Prothromb Time International Ratio 1.22ratio Test 02/15/17 04:00 02/15/17 04:35 02/15/17 13:00 Urine Color Yellow (YELLOW) Urine Appearance Clear (CLEAR,HAZY) Urine pH 7.0 (5.0-8.0) Urine Specific [place] 1.031 (1.003-1.035) Urine Protein Negativemg/dL (NEG,TRACE) Urine Glucose (UA) >1000mg/dL (NEGATIVE) Urine Ketones Negativemg/dL (NEGATIVE) Urine Occult Blood Negative (NEGATIVE) Urine Nitrite Negative (NEGATIVE) Urine Bilirubin Negative (NEGATIVE) Urine Urobilinogen 1.0mg/dL (NORMAL) Urine Leukocyte Esterase Negative (NEGATIVE) Urine RBC 0-2/hpf (0-2) Urine WBC 0-5/hpf (0-5) Urine Epithelial Cells Occasional/hpf (NONE-MOD) Urine Crystals None seen (NONE SEEN) Urine Bacteria None/hpf (NONE-FEW) Urine Hyaline Casts None/lpf (NONE) Urine Granular Casts None seen (NONE SEEN) Urine Waxy Casts None seen (NONE SEEN) Urine Red Blood Cell Casts None seen (NONE SEEN) Urine White Blood Cell Casts None seen (NONE SEEN) Urine Mucus None seen (None Seen) Urine Trichomonas None seen (NONE SEEN) Urine Yeast None (NONE SEEN) Urinalysis Comment None Urine Culture Reflexed Not indicated White Blood Count 4.5th/mm3 (3.8-10.1) 4.6th/mm3 (3.8-10.1) Red Blood Count 3.35mil/mm3 (4.40-5.80) 3.52mil/mm3 (4.40-5.80) Hemoglobin 9.9g/dL (13.8-17.2) 10.4g/dL (13.8-17.2) Hematocrit 30.0% (41.0-50.0) 31.9% (41.0-50.0) Mean Corpuscular Volume 89.6fL (81-100) 90.6fL (81-100) Mean Corpuscular Hemoglobin 29.6pg (27.0-35.0) 29.5pg (27.0-35.0) Mean Corpuscular Hemoglobin Concent 33.0% (32.0-37.0) 32.6% (32.0-37.0) Red Cell Distribution Width 17.8% (12.3-15.4) 17.9% (12.3-15.4) Platelet Count 159bil/L (150-400) 132bil/L (150-400) Result Diagram: 02/15/17 0435 02/15/17 0117 X-Rays, CTs and MRIs 02/15/17 - CT BRAIN WITHOUT CONTRAST IMPRESSION: No acute intracranial process. Approved by: Mary Ty M.D. on 02/15/2017 at 11:59 . Assessment & Plan Assessment 51-year-old with a history of alcohol-related cirrhosis, iron deficiency anemia , diabetes, CVA, and recent admission here in December for hepatic encephalopathy with ataxia and probable Wernicke's encephalopthy as well as hyponatremia secondary to SIADH who presented to the ED with his girlfriend for increased confusion. GI consulted for further evaluation of melena. Probable upper GI bleed in patient with alcoholic cirrhosis with hepatic encephalopathy, ongoing alcohol use, and prior GI bleeding related to esophageal varices. - Patient with history of alcohol abuse with AST and ALT in ratio consistent with this. Patient denies recent alcohol use and reportedly has not been drinking for the past two weeks. Patient also has chronic hepatic encephalopathy and on Lactulose as outpatient, here now with increased confusion and somnolence. - Ammonia elevated at 266. Was 111 on 12/21/16. Clinically his mental status is improving with Lactulose and IV fluids. Uncertain catalyst for acute change in mental status. Blood alcohol was negative in the ED and history somewhat limited about events leading up to this admission. Does not appear infectious, as patient is afebrile with a normal white count and fairly benign abdominal exam. However, the patient was started on ceftriaxone on admission for spontaneous bacterial peritonitis prophylaxis. No cultures were done on admission. RECOMMENDATIONS: - EGD to identify source for bleeding, tentatively planned for later today if patient's mental status continues to improve. - Until then, clear liquid diet - Continue protonix, octreotide drips - Monitor H/H with transfusion of blood products as needed to maintain Hb around 7.0 - Trend LFTs and monitor ammonia closely - Continue Lactulose 10mg PO TID (hold for diarrhea), start Rifaximin 600mg PO BID - Rehab for alcohol use Additional Problems managed by primary hospitalist: -Diabetes mellitus, chronic. -Hypertension, Chronic -Chronic pain syndrome . I seen and examined the patient. Agree with above. Problems: Resuscitation Status: CPR: Attempt Resuscitation Elke Crow DO Feb 15, 2017 09:42 Noman Cao MD Feb 17, 2017 09:21
[2017-02-15] MEDS: Lactulose 20 Gm/30 mL 30 mL Syrup TUBE SCH ×2 (15:32→20:19)
--- NOTE | 2017-02-15 15:50 | DRSVH ---
PROCEDURE: US ABDOMEN INDICATIONS: History of of cirrhosis, hepatic encephalopathy. TECHNIQUE: Real-time scanning was performed of the abdominal and retroperitoneal organs with image d ocumentation. COMPARISON: None. FINDINGS: Liver length: 19.92 cm Gallbladder wall thickness: 2.40 mm CBD: 4.60 mm Spleen length: 21.28 cm Right kidney length: 12.22 cm Left kidney length: 12.81 cm Aorta (Proximal): 2.57 cm Aorta (Mid): 1.74 cm Aorta (Distal): 1.62 cm Liver: Liver is coarse in echotexture. No focal hepatic abnormalities. Gallbladder: Multiple gallstones present. No gallbladder wall thickening or pericholecystic fluid. Biliary Ducts: Intrahepatic bile ducts are non-dilated. Extrahepatic bile duct caliber is normal. Normal is 6-7 mm or less in diameter, or 10 mm or less post-cholecystectomy. Pancreas: Visualized portions of the pancreas are sonographically normal. Spleen: Spleen is enlarged in size and homogeneous in echotexture. Kidneys: Kidneys are normal in size and echotexture. No hydronephrosis or nephrolithiasis. No deidre d masses. Aorta: Visualized aorta is normal in caliber at less than 3 cm. Iliacs: Not well seen. IVC: Intrahepatic inferior vena cava is patent. Miscellaneous: No free abdominal fluid. IMPRESSION: 1. Coarse appearance of the liver and this patient with history of hepatic cirrhosis. No discrete focal hepatic abnormality seen. 2. Sonographic splenomegaly. 3. Cholelithiasis without cholecystitis. Dictated by: Harshil MASSEY Interpreted: Mary Ty MD on 02/15/2017 at 15:43 Transcribed by: BALDOMERO on 02/15/2017 at 18:50 Approved by: Mary Ty M.D. on 02/15/2017 at 20:24
[2017-02-15] MEDS ORDERED: Albuterol 2.5 mg/3 mL Inhalation Solution NEB PRN (16:00)
--- NOTE | 2017-02-15 17:26 | NUR ---
off unit pt is off unit to endo for EDG. No s/s of distress
--- NOTE | 2017-02-15 17:34 | NUR ---
Social Work-attempted assessment: Data:EMR Reviewed. Pt is a 51 y/o male who was admitted on 02/15/17 for UGI bleed per H&P. Pt's insurance is [facility] and [facility] supp and PCP is Patric Arvizu MD. EMR reviewed. Pt's readmission score is 6-high risk. SW attempted to see pt, but pt currently not on the unit. order received for CD assessment. SW to follow up with pt tomorrow and complete assessment and CD assessment. SW will continue to follow. Assessment:Pt who is on CIWA. Plan:SW to follow up with pt tomorrow and complete assessment and CD assessment. SW will continue to follow. ROBERTO Mckinley
--- NOTE | 2017-02-15 17:42 | PCM.HPANE ---
Patient Data Date of Service: Feb 15, 2017 ([id number]) Surgeon Admitting Provider:Binu Crews MD Attending Provider:Pedro Luis Bustillos MD Primary Care Physician:Patric Arvizu DO Other Provider: Reason for Visit Ugi Bleed Hyperammonemia UGI BLEED HYPERAMMONEMIA Ht/WT & BMI Height (Feet): 5 Height (Inches): 9.00 Weight (Kilograms): 88.400 Body Mass Index 28.00 Allergies Coded Allergies: spironolactone (Verified Adverse Reaction, Mild, nipples hurt, 02/14/17) Past Anesthesia History Anesthesia History: Denies:: Abnormal Airway, Anesthesia Reactions, Difficult Intubation, Fam Anesthesia Reaction, Fam Malignant Hypertherm, Malignant Hyperthermia Diabetes History Hx Diabetes?: Yes Type of Diabetes: Type II Glycemic Control: Oral Medication Current Bedside Blood Glucose: 370 MRSA MRSA: No Medications Blood Thinner: Aspirin Last Dose Blood Thinner: Feb 14, 2017 Home Meds Incl Beta Jose Luis: No Active Scripts Sodium Chloride 1 Gm Tablet1 Gm PO BID 30 Days Prov:Kenya Holland MD 12/26/16 Thiamine Mononitrate (Vitamin B-1)100 Mg Ksijrp890 Mg PO DAILY 30 Days Prov:Kenya Holland MD 12/26/16 Ferrous Sulfate (Feosol)325 Mg Lpncoz972 Mg PO BIDWM 30 Days Prov:Kenya Holland MD 12/26/16 Reported Medications Albuterol Sulfate (Ventolin HFA Inhaler)200 Puff/18 Gm Inhaler1 Puff INH Q4 PRN For Wheezing #1 INHALER Ref 0 12/22/16 Chlorthalidone 25 Mg Pcqzsl48 Mg PO DAILY #30 TABLET 12/22/16 Glipizide 10 Mg Fvlpvy65 Mg PO DAILYWD 30 Days 12/22/16 Omeprazole Magnesium (Prilosec Otc)20 Mg Tablet.dr20 Mg PO DAILY #1 PKG Ref 0 12/22/16 Morphine Sulfate ER (MS Contin)15 Mg Tablet.er15 Mg PO q8hrs 30 Days Ref 0 11/07/14 Oxycodone (Roxicodone)5 Mg Tablet5 Mg PO Q4-6H PRN For Pain Ref 0 01/02/14 Gabapentin (Neurontin)300 Mg Osccdtd960 Mg PO TID 30 Days Ref 0 01/02/14 Quetiapine Fumarate (Seroquel)200 Mg Docnjq591 Mg PO HS 09/09/13 Discontinued Reported Medications Sitagliptin Phos (Januvia)100 Mg Wgkrdy923 Mg PO DAILY Ref 0 12/22/16 Discontinued Scripts Amlodipine 5 Mg Tablet5 Mg PO DAILY 30 Days Prov:Kenya Holland MD 12/26/16 History History of ENT Problems?: Yes HEENT History: Positive for:: Cataracts (small) Hearing Problem (slight) Denies:: Abnormal Airway Difficult Intubation Dysphagia Denture Type: None Teeth Condition: Broken Teeth Other HEENT Pertinent History: pt states right eye vision difficult since stroke Hx of Heart Problems?: Yes Cardiovascular History: Positive for:: Atrial Fibrillation Hypertension Denies:: AICD Chest Pain Congestive Heart Failure Coronary Artery Disease Pacemaker Valvular Heart Disease Hx of Respiratory Problem?: Yes Respiratory History: Positive for:: Asthma Use of C-PAP Machine (ANABELLA+ ?CPAP) Denies:: Tuberculosis Other Resp Pertinent History: former smoker Hx Neurologic Problems?: Yes Neurological History: Positive for:: 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 Pressure Ulcers Hx Musculoskeletal Problems?: Yes Musculoskeletal History: Positive for:: Back Injury (C/OF LOWER BACK & LEG PAIN) Musculoskeletal Trauma (S/P ELBOW RPR) Denies:: Joint Replacement Hx of Psycho/Social Problems?: Yes Psycho Social History: Positive for:: Anxiety Hx Depression Suicide Attempt (2013, by medication) Denies:: Bipolar Disorder Other Psych Pertinent History: ETOH dependence Hx Surgeries?: Yes (elbow and back) Hx Any Other Health Problems?: Yes Other History: Denies:: Cancer Endocrine Disease Hospitalization Thyroid Disease Hx Diabetes: YesBedside Blood Glucose: 370 Other Pertinent History: Fe-deficiency anemia Hx Alcohol Use: YesAlcoholic Drinks Per Day: unk Smoking Status: Former Smoker Approx How Many Cigarettes/day: unable to give info. Stop/Bang Treated for Sleep Apnea?: Yes Do You Have a CPAP Machine?: Yes ANABELLA Category 2: Yes Risk Assessment Category Category 1A: Patient has history of documented sleep apnea, and HAS NOT received any narcotic, sedative or anesthesia administration during this stay. Category 1B: Patient has history of documented sleep apnea, and HAS received any narcotic , sedative or anesthesia administration during this stay Category 2: Patient has SUSPECTED Obstructive Sleep Apnea, and HAS received any narcotic , sedative or anesthesia administration during this stay. Category 3: Patient has SUSPECTED Obstructive Sleep Apnea and HAS NOT received narcotic, sedative or anesthesia administration during this stay. Category 4: Outpatient in Procedural Areas with known sleep apnea or who screen positive for High Risk via the STOP/BANG questionnaire. Exam Exam Vital Signs Vital Signs Date Time Temp Pulse Resp B/P Pulse Ox O2 Delivery O2 Flow Rate FiO2 02/15/17 17:27 37.7 89 16 140/90 97 Room Air 02/15/17 16:29 36.7 98 18 152/95 98 Room Air 02/15/17 14:20 73 18 96 Room Air 02/15/17 09:58 37.3 92 18 127/81 97 Room Air 02/15/17 09:46 86 General Appearance: Alert, Cooperative, No Acute Distress HEENT/AIRWAY: MP 3, Neck Movement (FROM), Mouth Opening (3), Other (TMD3) Lungs: Diminished Heart: Exam Unremarkable, Regular Rate/Rhythm, Normal S1, Normal S2 Meds/Labs/Diagnostics Admission Meds Current Medications Lactulose 20 gm 20 gm ONCE ONCE PO Last administered on 02/15/17 03:50; Start 02/15/17 at 03:45; Stop 02/15/17 at 03:47; Status DC Pantoprazole/ Miscellaneous/ Sodium Chloride (Protonix Inj/ Pharmacy To Mix/ Normal Saline) 100 ml @ 10 mls/hr Q10H IV Last administered on 02/15/17 14:48 ; Start 02/15/17 at 04:00 Octreotide Acetate 50 mcg 50 mcg ONCE ONCE IVPUSH Last administered on 04:44; Start 02/15/17 at 04:00; Stop 02/15/17 at 04:03; Status DC Octreotide Acetate 500 mcg/ Sodium Chloride 101 ml @ 10.1 mls/hr ONCE ONCE IV Last administered on 02/15/17 04:44; Start 02/15/17 at 04:00; Stop 02/15/17 at 13:59; Status DC Ceftriaxone Sodium 2000 mg/ Dextrose/Water 50 ml @ 100 mls/hr ONCE ONCE IV Last administered on 02/15/17 04:43; Start 02/15/17 at 04:00; Stop 02/15/17 at 04:29; Status DC Pantoprazole 80 mg/Sodium Chloride 100 ml @ 400 mls/hr ONCE ONCE IV Last administered on 02/15/17 04:44; Start 02/15/17 at 04:03; Stop 02/15/17 at 04:17 ; Status DC Sodium Chloride (Normal Saline) 1,000 ml @ 100 mls/hr Q10H IV Last administered on 02/15/17 14:48; Start 02/15/17 at 04:04 Insulin Human Lispro Nutritional Dose to be given pr... [facility] SUBQ Last administered on 02/15/17 12:35; Start 02/15/17 at 08:00 Sodium Chloride (Normal Saline) 1,000 ml @ 0 mls/hr Q0M ONCE IV Last administered on 02/15/17 04:51; Start 02/15/17 at 04:45; Stop 02/15/17 at 04:46 ; Status DC Midazolam HCl (Versed Inj) 1 mg ONCE ONCE IVPUSH Last administered on 05:07; Start 02/15/17 at 04:55; Stop 02/15/17 at 04:56; Status DC Lactulose (Cephulac) 10 gm TID TUBE Last administered on 02/15/17 15:32; Start 02/15/17 at 14:30 Bedside Blood Glucose: 370 Labs Test 02/15/17 01:17 02/15/17 01:18 02/15/17 01:20 02/15/17 01:40 Neutrophils (%) (Auto) 67.6% (40-74) Lymphocytes (%) (Auto) 17.8% (14-46) Monocytes (%) (Auto) 11.6% (4-12) Eosinophils (%) (Auto) 1.7% (0-5) Basophils (%) (Auto) 1.1% (0-3) Sodium Level 137mEq/L (134-144) Potassium Level 3.5mEq/L (3.5-5.2) Chloride Level 97mEq/L (97-108) Carbon Dioxide Level 22mmol/L (18-29) Blood Urea Nitrogen 15mg/dL (6-24) Creatinine 0.60mg/dL (0.76-1.27) Estimat Glomerular Filtration Rate 150mL/min (>59) Glucose Level 377mg/dL (60-99) Calcium Level 9.6mg/dL (8.5-10.1) Magnesium Level 1.9mg/dL (1.6-2.6) Total Bilirubin 2.9mg/dL (0.0-1.2) Aspartate Amino Transf (AST/SGOT) 91U/L (0-50) Alanine Aminotransferase (ALT/SGPT) 57U/L (0-44) Alkaline Phosphatase 189U/L (25-150) Troponin T < 0.010ug/L (0.0-0.011) Total Protein 9.0g/dL (6.4-8.4) Albumin 3.4g/dL (3.4-5.0) Alcohols < 10mg/dL (0-10) Hold Simms Top Tube Received (Received) Ammonia 266ug/dL (18-53) Prothrombin Time 13.1sec (8.1-12.5) Prothromb Time International Ratio 1.22ratio Test 02/15/17 04:00 02/15/17 04:35 02/15/17 13:00 Urine Color Yellow (YELLOW) Urine Appearance Clear (CLEAR,HAZY) Urine pH 7.0 (5.0-8.0) Urine Specific [place] 1.031 (1.003-1.035) Urine Protein Negativemg/dL (NEG,TRACE) Urine Glucose (UA) >1000mg/dL (NEGATIVE) Urine Ketones Negativemg/dL (NEGATIVE) Urine Occult Blood Negative (NEGATIVE) Urine Nitrite Negative (NEGATIVE) Urine Bilirubin Negative (NEGATIVE) Urine Urobilinogen 1.0mg/dL (NORMAL) Urine Leukocyte Esterase Negative (NEGATIVE) Urine RBC 0-2/hpf (0-2) Urine WBC 0-5/hpf (0-5) Urine Epithelial Cells Occasional/hpf (NONE-MOD) Urine Crystals None seen (NONE SEEN) Urine Bacteria None/hpf (NONE-FEW) Urine Hyaline Casts None/lpf (NONE) Urine Granular Casts None seen (NONE SEEN) Urine Waxy Casts None seen (NONE SEEN) Urine Red Blood Cell Casts None seen (NONE SEEN) Urine White Blood Cell Casts None seen (NONE SEEN) Urine Mucus None seen (None Seen) Urine Trichomonas None seen (NONE SEEN) Urine Yeast None (NONE SEEN) Urinalysis Comment None Urine Culture Reflexed Not indicated White Blood Count 4.6th/mm3 (3.8-10.1) Red Blood Count 3.52mil/mm3 (4.40-5.80) Hemoglobin 10.4g/dL (13.8-17.2) Hematocrit 31.9% (41.0-50.0) Mean Corpuscular Volume 90.6fL (81-100) Mean Corpuscular Hemoglobin 29.5pg (27.0-35.0) Mean Corpuscular Hemoglobin Concent 32.6% (32.0-37.0) Red Cell Distribution Width 17.9% (12.3-15.4) Platelet Count 132bil/L (150-400) Plan Impression Patient chart reviewed, patient interviewed and anesthestic plan with risks, benefits, and alternatives discussed, and informed consent obtained. NPO per Anesth. Guidelines: Yes ASA Physical Status: ASA3 Severe Disease Anesthetic Plan: TIVA Bene/Risks/Altern/Consents: Yes HP Complete Prior to Induction: Yes Antonio Mohr MD Feb 15, 2017 17:42
[2017-02-15] MEDS ORDERED: Lactated Ringer's 1,000 ML IV ONE (17:52)
--- NOTE | 2017-02-15 18:05 | PCM.ENDEGD ---
EGD Date of Service: Feb 15, 2017 Physician Pedro Luis Bustillos MD Pre Procedure Diagnosis: Anemia and melena Post Procedure Dx & Findings: Severe portal hypertensive gastropathy and esophageal varices antritis with erosions. Procedure Esophagogastroduodenoscopy PROCEDURE IN DETAIL: After proper sedation, Olympus video endoscope was inserted into patient's mouth and esophagus was successfully intubated. Scope introduced esophagus. Esophagus showed normal shiny whitish mucosa consistent with squamous cell component. Z line was intact at 40 cm from the incisors. From mid esophagus, I saw 4 columns of varices. One column was grade 3 varices in the other 3 columns were about grade 1-2 varices. No stigmata noted. Right below the Z line, it appears that patient had significant inflammation and irritation and this continued throughout the entire stomach. This body of the stomach showed severe portal hypertensive gastropathy. Antrum showed significant inflammation with multiple erosions. On some of the erosions, there was a clot. Clot was washed. Underneath it, there were clean-based erosions. Cardia fundus body antrum pylorus were all visualized. Retroflexion was done. Stomach was easily inflated and deflatable using air. Scope further events to the distal duodenum. Duodenum revealed normal villous structures with normal appearing folds without any mass ulcer erosion. Impression Severe portal hypertensive gastropathy - probable source of melena esophageal varices antritis with erosions with clots.- Probable source of melena. Recommendation 5 days of IV PPI IV octreotide and antibiotics. Please send the patient out on propanolol 10 mg by mouth twice a day initially and titrate up. Target heart rate mid 50s. Patient with follow-up with his product marketing coordinator in [place] after discharge. Presedation Assessment Risks and Benefits Informed consent was obtained from the patient after all risks and benefits including but not limited to drug reaction, infection, pain, bleeding, perforation, as well as alternatives were discussed. Patient monitoring Continuous pulse oximetry, cardiac monitoring, blood pressure monitoring, IV access, and oxygen at 2L per nasal cannula. Complications There were no periprocedural complications identified. Post Procedure Plan Post Procedure Recommendations 1. Restrict activities today. 2. Resume normal activities in the morning. 3. Resume medications. 4. GERD behavioral modification: - Avoid fatty, acidic, spicy, large meals - Do not lie down after meals - Do not eat or drink anything for at least 2 1/2 hours before going to bed at night - Discontinue tobacco and alcohol - Decrease or avoid caffeine - Avoid chocolate and mints - Decrease weight - Avoid aspirin and non steroidal anti-inflammatory agents (NSAID) such as Aleve, Advil, Mobic, Naproxen, Ibuprofen, etc 5. Add proton pump inhibitor. Take 30 minutes before 1st meal of the day. 6. Patient informed of normal post procedure side effects as bloating, drowsiness, blood streaking in the stool 7. If gastric biopsy reveal H.pylori, continue with appropriate treatment 8. If small bowel biopsy reveals celiac, continue with appropriate treatment 9. Please don't hesitate to call me with any questions Noman Cao MD Feb 15, 2017 18:05
--- NOTE | 2017-02-15 18:24 | NUR ---
back on unit.
--- NOTE | 2017-02-15 18:26 | NUR ---
Removed Mendez Dc'd Mendez per MD order. No spontaneous void. Trace amount of aurelio blood.
--- NOTE | 2017-02-15 19:10 | NUR ---
mentation/dark stool Pt was A&O to self only this morning and was unable to answer questions. Pt would mumbled, make statements that did not make sense or just not respond. Pts mentation improved throughout shift the more BMs he had but was continuously impulsive. Soft restraints were dc,d at 1000 per MD orders. By end of shift pt was answering questions appropriately but still did not use call light. Pt had multiple dark tarry looking stools. aware. Guaiac sent. H&H stable. VS WNL except for temp of 99
[2017-02-15 19:49] LABS: Mean Corpuscular Hemoglobin 29.9 pg (27.0-35.0); Mean Corpuscular Volume 91.8 fL (81-100)
[2017-02-15] MEDS ORDERED: 0.9% Sodium Chloride 100 ML ONE (20:04)
[2017-02-15] MEDS: Octreotide Inj 500 MCG in 0.9% Sodium Chloride 99 ML IV SCH (20:09)
[2017-02-16] VITALS (10 sets, daily range): BP systolic 113–135; BP diastolic 63–81; PULSE 64–90; RESP 14–18; O2SAT 95–98
[2017-02-16] MEDS: Pantoprazole Inj 80 MG, Pharmacy To Mix 1 EA in 0.9% Sodium Chloride 80 ML IV SCH ×6 (03:14→17:51)
[2017-02-16] MEDS: 0.9% Sodium Chloride 1,000 ML IV SCH ×3 (03:15→13:20)
[2017-02-16] MEDS: Morphine ER 15 mg (MS Contin) Tablet PO SCH ×3 (03:45→20:21)
[2017-02-16] MEDS: Octreotide Inj 500 MCG in 0.9% Sodium Chloride 99 ML IV SCH ×2 (06:11→17:51)
[2017-02-16] MEDS: cefTRIAXone Inj 1,000 MG in Dextrose 5% Minibag Plus 50 ML IV SCH (06:12)
--- NOTE | 2017-02-16 06:27 | NUR ---
Mentation Pt A&O x3 but somewhat forgetful. Pt able to answer questions appropriately and have meaningful conversation. Sister Xi updated with pt giving verbal consent to provide sister with any health related info. Pt very somnolent all shift but awakens easily.
[2017-02-16 08:07] LABS: BASOPHILS % (AUTO) 1.2 % (0-3); Mean Corpuscular Hemoglobin 29.8 pg (27.0-35.0); Mean Corpuscular Volume 92.4 fL (81-100); NEUTROPHILS % (AUTO) 51.3 % (40-74); Platelet Count 113 bil/L (150-400)
[2017-02-16] MEDS: Lactulose 20 Gm/30 mL 30 mL Syrup PO SCH ×3 (08:32→20:21)
--- NOTE | 2017-02-16 09:16 | PCM.PNMED ---
Subjective Date of Service Feb 16, 2017 Subjective GASTROENTEROLOGY PROGRESS NOTE: Attending Physician: Noman Cao MD Resident Physician: Elke Crow DO No acute events overnight. Patient is sitting up in bed and states that he is feeling quite a bit better. He states that he did not realize that the Lactulose was so important and that he had stopped taking this recently. He reports last drinking alcohol in December and is without new complaint or symptoms today. Exam Vital Signs Vital Sign - Last Date Time Temp Pulse Resp B/P Pulse Ox O2 Delivery O2 Flow Rate FiO2 02/16/17 08:00 64 18 96 Room Air 02/16/17 05:37 36.7 113/63 02/15/17 18:01 6 Intake and Output 02/15/17 02/15/17 02/16/17 Cumulative From/Thru 15:00 23:00 07:00 02/14/17 23:56 - 02/16/17 06:27 Intake Total 1135 ml 1331 ml 4046 ml Output Total 400 ml 425 ml 1875 ml Balance 735 ml 906 ml 2171 ml Intake Oral 0 ml 0 ml IV Total 1135 ml 1331 ml 4046 ml Output Urine Total 400 ml 425 ml 1875 ml # Bowel Movements 1 1 Exam General: Chronically ill-appearing, male in no acute distress. Speech somewhat delayed and mildly slurred (different than baseline per his family) HEENT: Normocephalic, atraumatic. PERRLA. Scleral icterus. Mucous membranes dry Lungs: Clear to auscultation bilaterally with no crackles, wheezes, or rhonchi. Cardiovascular: Regular rate/rhythm. No murmurs Abdomen: Soft, Non-tender, Non-distended, No masses, Normoactive bowel tones Extremities: No cyanosis or edema Skin: Mild jaundice, No obvious rashes or ulcerations Neurological: AOx3, No focal neurologic deficit. IVs and Medications Medications Reviewed: Medications were reviewed in detail Lab and Diagnostics Laboratory Tests Test 02/15/17 13:00 02/15/17 19:46 02/16/17 00:08 02/16/17 07:57 White Blood Count 4.6th/mm3 (3.8-10.1) 5.1th/mm3 (3.8-10.1) 3.3th/mm3 (3.8-10.1) Red Blood Count 3.52mil/mm3 (4.40-5.80) 3.41mil/mm3 (4.40-5.80) 3.02mil/mm3 (4.40-5.80) Hemoglobin 10.4g/dL (13.8-17.2) 10.2g/dL (13.8-17.2) 9.0g/dL (13.8-17.2) 9.0g/dL (13.8-17.2) Hematocrit 31.9% (41.0-50.0) 31.3% (41.0-50.0) 27.8% (41.0-50.0) 27.9% (41.0-50.0) Mean Corpuscular Volume 90.6fL (81-100) 91.8fL (81-100) 92.4fL (81-100) Mean Corpuscular Hemoglobin 29.5pg (27.0-35.0) 29.9pg (27.0-35.0) 29.8pg (27.0-35.0) Mean Corpuscular Hemoglobin Concent 32.6% (32.0-37.0) 32.6% (32.0-37.0) 32.3% (32.0-37.0) Red Cell Distribution Width 17.9% (12.3-15.4) 18.0% (12.3-15.4) 17.6% (12.3-15.4) Platelet Count 132bil/L (150-400) 131bil/L (150-400) 113bil/L (150-400) Neutrophils (%) (Auto) 51.3% (40-74) Lymphocytes (%) (Auto) 29.2% (14-46) Monocytes (%) (Auto) 12.0% (4-12) Eosinophils (%) (Auto) 6.0% (0-5) Basophils (%) (Auto) 1.2% (0-3) Sodium Level 142mEq/L (134-144) Potassium Level 3.4mEq/L (3.5-5.2) Chloride Level 109mEq/L (97-108) Carbon Dioxide Level 21mmol/L (18-29) Blood Urea Nitrogen 14mg/dL (6-24) Creatinine 0.60mg/dL (0.76-1.27) Estimat Glomerular Filtration Rate 150mL/min (>59) Glucose Level 169mg/dL (60-99) Calcium Level 8.1mg/dL (8.5-10.1) Microbiology 02/15/17 Stool Occult Blood (YURY) - Positive . Result Diagram: 02/16/17 0757 02/16/17 0757 X-Rays, CTs and MRIs 02/15/17 - CT BRAIN WITHOUT CONTRAST IMPRESSION: 1. No acute intracranial process. Approved by: Mary Ty M.D. on 02/15/2017 at 11:59 02/15/17 - US ABDOMEN IMPRESSION: 1. Coarse appearance of the liver and this patient with history of hepatic cirrhosis. No discrete focal hepatic abnormality seen. 2. Sonographic splenomegaly. 3. Cholelithiasis without cholecystitis. Approved by: Mary Ty M.D. on 02/15/2017 at 20:24 . Additional Diagnostics 02/15/17 - EGD Pre Procedure Diagnosis: Anemia and melena Post Procedure Dx & Findings: Severe portal hypertensive gastropathy and esophageal varices antritis with erosions. PROCEDURE IN DETAIL: After proper sedation, Olympus video endoscope was inserted into patient's mouth and esophagus was successfully intubated. Scope introduced esophagus. Esophagus showed normal shiny whitish mucosa consistent with squamous cell component. Z line was intact at 40 cm from the incisors. From mid esophagus, I saw 4 columns of varices. One column was grade 3 varices in the other 3 columns were about grade 1-2 varices. No stigmata noted. Right below the Z line, it appears that patient had significant inflammation and irritation and this continued throughout the entire stomach. This body of the stomach showed severe portal hypertensive gastropathy. Antrum showed significant inflammation with multiple erosions. On some of the erosions, there was a clot. Clot was washed. Underneath it, there were clean-based erosions. Cardia fundus body antrum pylorus were all visualized. Retroflexion was done. Stomach was easily inflated and deflatable using air. Scope further events to the distal duodenum. Duodenum revealed normal villous structures with normal appearing folds without any mass ulcer erosion. IMPRESSION: Severe portal hypertensive gastropathy - probable source of melena esophageal varices antritis with erosions with clots.- Probable source of melena. RECOMMENDATION: - 5 days of IV PPI IV octreotide and antibiotics. - Please send the patient out on propanolol 10 mg by mouth twice a day initially and titrate up. Target heart rate mid 50s. - Patient with follow-up with his router operator in [place] after discharge. Post Procedure Recommendations - Restrict activities today. - Resume normal activities in the morning. - Resume medications. - GERD behavioral modification: - Avoid fatty, acidic, spicy, large meals - Do not lie down after meals - Do not eat or drink anything for at least 2 1/2 hours before going to bed at night - Discontinue tobacco and alcohol - Decrease or avoid caffeine - Avoid chocolate and mints - Decrease weight - Avoid aspirin and non steroidal anti-inflammatory agents (NSAID) such as Aleve, Advil, Mobic, Naproxen, Ibuprofen, etc - Add proton pump inhibitor. Take 30 minutes before 1st meal of the day. - Patient informed of normal post procedure side effects as bloating, drowsiness , blood streaking in the stool - If gastric biopsy reveal H.pylori, continue with appropriate treatment - If small bowel biopsy reveals celiac, continue with appropriate treatment Noman Cao MD Assessment & Plan 51-year-old with a history of alcohol-related cirrhosis, iron deficiency anemia , diabetes, CVA, and recent admission here in December for hepatic encephalopathy with ataxia and probable Wernicke's encephalopthy as well as hyponatremia secondary to SIADH who presented to the ED with his girlfriend for increased confusion. GI consulted for further evaluation of melena. Probable upper GI bleed in patient with alcoholic cirrhosis with hepatic encephalopathy, alcohol use, and prior GI bleeding related to esophageal varices. - Patient with history of alcohol abuse and chronic hepatic encephalopathy on Lactulose as outpatient, who presented with increased confusion and somnolence. He denies recent alcohol use and states that his last drink was in December. Blood alcohol level on admission was negative. - Ammonia elevated at 266. Was 111 on 12/21/16. Clinically his mental status is improving with Lactulose and IV fluids. - Catalyst for acute change in mental status likely noncompliance/ inconsistently taking Lactulose. - EGD on 02/15 - Severe portal hypertensive gastropathy - probable source of melena esophageal varices antritis with erosions with clots.- Probable source of melena. - Patient currently takes 81mg Aspirin daily and due to gastric erosions noted on EGD at a higher risk for bleeding. Suggest close outpatient followup with Patient Placement Coordinator in [place] and PCP. We will defer this decision to continue the aspirin to the primary care service and the primary care physician. RECOMMENDATIONS: - 5 days of IV PPI, IV octreotide and antibiotics - Would discharge on Propanolol 10 mg PO BID and titrate up, target HR mid 50s - Continue Lactulose 10mg PO TID (hold for diarrhea) and stop Rifaximin 600mg PO BID- patient did not fail Lactulose, he did not take it. - Monitor LFTs and monitor ammonia. Await biopsies - GERD behavioral modification - Follow-up with his router operator in [place] after discharge - Rehab for alcohol use Additional Problems managed by primary hospitalist: -Diabetes mellitus, chronic. -Hypertension, Chronic -Chronic pain syndrome . I examined the patient with the resident and agree with above. Resuscitation Status: CPR: Attempt Resuscitation Elke Crow DO Feb 16, 2017 09:01 Noman Cao MD Feb 17, 2017 09:33
[2017-02-16] MEDS: Insulin LISPRO 300 Unit/3 mL Inj SUBQ SCH ×3 (09:38→17:52)
--- NOTE | 2017-02-16 15:39 | PCM.PNMED ---
Subjective Date of Service Feb 16, 2017 Subjective Improved mentation. More awake and alert. Exam Vital Signs Vital Sign - Last Date Time Temp Pulse Resp B/P Pulse Ox O2 Delivery O2 Flow Rate FiO2 02/16/17 13:09 36.7 69 16 128/78 97 02/16/17 09:14 Room Air 02/15/17 18:01 6 Intake and Output 02/15/17 02/15/17 02/16/17 Cumulative From/Thru 15:00 23:00 07:00 02/14/17 23:56 - 02/16/17 06:27 Intake Total 1135 ml 1331 ml 4046 ml Output Total 400 ml 425 ml 1875 ml Balance 735 ml 906 ml 2171 ml Intake Oral 0 ml 0 ml IV Total 1135 ml 1331 ml 4046 ml Output Urine Total 400 ml 425 ml 1875 ml # Bowel Movements 1 1 Exam General: male in no acute distress. More alert and awake today AOX2. HEENT: Normocephalic, atraumatic. PERRLA. Scleral icterus. Mucous membranes dry Lungs: Clear to auscultation bilaterally with no crackles, wheezes, or rhonchi. Cardiovascular: Regular rate/rhythm. No murmurs Abdomen: Soft, Non-tender, Non-distended, No masses, Normoactive bowel tones Extremities: No cyanosis or edema Skin: Mild jaundice, No obvious rashes or ulcerations Neurological: AOx3, No focal neurologic deficit. IVs and Medications Medications Reviewed: Medications were reviewed in detail Lab and Diagnostics Result Diagram: 02/16/17 0757 02/16/17 0757 X-Rays, CTs and MRIs 02/15/17 - CT BRAIN WITHOUT CONTRAST IMPRESSION: 1. No acute intracranial process. Approved by: Mary Ty M.D. on 02/15/2017 at 11:59 02/15/17 - US ABDOMEN IMPRESSION: 1. Coarse appearance of the liver and this patient with history of hepatic cirrhosis. No discrete focal hepatic abnormality seen. 2. Sonographic splenomegaly. 3. Cholelithiasis without cholecystitis. Approved by: Mary Ty M.D. on 02/15/2017 at 20:24 . Additional Diagnostics 02/15/17 - EGD Pre Procedure Diagnosis: Anemia and melena Post Procedure Dx & Findings: Severe portal hypertensive gastropathy and esophageal varices antritis with erosions. PROCEDURE IN DETAIL: After proper sedation, Olympus video endoscope was inserted into patient's mouth and esophagus was successfully intubated. Scope introduced esophagus. Esophagus showed normal shiny whitish mucosa consistent with squamous cell component. Z line was intact at 40 cm from the incisors. From mid esophagus, I saw 4 columns of varices. One column was grade 3 varices in the other 3 columns were about grade 1-2 varices. No stigmata noted. Right below the Z line, it appears that patient had significant inflammation and irritation and this continued throughout the entire stomach. This body of the stomach showed severe portal hypertensive gastropathy. Antrum showed significant inflammation with multiple erosions. On some of the erosions, there was a clot. Clot was washed. Underneath it, there were clean-based erosions. Cardia fundus body antrum pylorus were all visualized. Retroflexion was done. Stomach was easily inflated and deflatable using air. Scope further events to the distal duodenum. Duodenum revealed normal villous structures with normal appearing folds without any mass ulcer erosion. IMPRESSION: Severe portal hypertensive gastropathy - probable source of melena esophageal varices antritis with erosions with clots.- Probable source of melena. RECOMMENDATION: - 5 days of IV PPI IV octreotide and antibiotics. - Please send the patient out on propanolol 10 mg by mouth twice a day initially and titrate up. Target heart rate mid 50s. - Patient with follow-up with his parts product analyst in [place] after discharge. Post Procedure Recommendations - Restrict activities today. - Resume normal activities in the morning. - Resume medications. - GERD behavioral modification: - Avoid fatty, acidic, spicy, large meals - Do not lie down after meals - Do not eat or drink anything for at least 2 1/2 hours before going to bed at night - Discontinue tobacco and alcohol - Decrease or avoid caffeine - Avoid chocolate and mints - Decrease weight - Avoid aspirin and non steroidal anti-inflammatory agents (NSAID) such as Aleve, Advil, Mobic, Naproxen, Ibuprofen, etc - Add proton pump inhibitor. Take 30 minutes before 1st meal of the day. - Patient informed of normal post procedure side effects as bloating, drowsiness , blood streaking in the stool - If gastric biopsy reveal H.pylori, continue with appropriate treatment - If small bowel biopsy reveals celiac, continue with appropriate treatment Noman Cao MD Assessment & Plan Jonathan Rosen is a 51 y/o male with Alcohol-related cirrhosis, iron deficiency anemia, non-insulin using diabetes mellitus, CVA, and chronic pain associated with lumbar DJD who presents to [facility] emergency department with confusion 1 Acute Upper Gastrointestinal bleeding. Present on admission GI following, Dr. Cao. Performed EGD on 02/16- Severe portal hypertensive gastropathy - probable source of melena, esophageal varices, antritis with erosions with clots.- Probable source of melena. - 5 days of IV PPI, IV octreotide and antibiotics - Would discharge on Propanolol 10 mg PO BID and titrate up, target HR mid 50s - Continue Lactulose 10mg PO TID (hold for diarrhea), start Rifaximin 600mg PO BID - Monitor LFTs and monitor ammonia. Await biopsies - GERD behavioral modification - Follow-up with his parts product analyst in [place] after discharge - Rehab for alcohol use 2 Acute on chronic Hepatic encephalopathy, Present on admission, active. Patient is a heavy drinker with known history of Hepatic encephalopathy and on Lactulose as outpatient - avoid benzodiazepine and high dose narcotics - Lactulose continued to achieve 3-4 bowel movements per day. - GI added Rifaximin to regimen - Upon discharge continue SBP prophylaxis. On Ceftriaxone currently. 3 Alcohol abuse, present on admission, active. - AST and ALT in ratio consistent with alcohol abuse. - CIWA protocol will be initiated when withdrawal symptoms are noted 4 Elevated liver enzymes secondary to Alcoholic Hepatitis with Cirrhosis Hepatitis Discriminant function score 17 therefore patient will not survival benefit from Prednisolone treatment - monitor levels at this time - need counseling for abstinence to prevent progression 5 Diabetes mellitus, chronic. - holding Januvia and glipizide. - medium Lispro correctional scale. - Hemoglobin A1c 6.6 6 Hypertension, Chronic - continue Amlodipine 5 mg daily 7 Chronic pain syndrome - Continue home regimen of Gabapentin 600 mg 3 times, MS Contin hm regimen. - Acetaminophen as needed for mild pain/fever/headache - Bowel regimen as needed - Antiemetic as needed Patient admitted under inpatient status with expected length of stay > 2 midnights for severity of present symptoms, complexities of treatment plan and risk for adverse event . GI Prophylaxis: Proton Pump Inhibitor Resuscitation Status: CPR: Attempt Resuscitation Pedro Luis Bustillos MD Feb 16, 2017 15:39
--- NOTE | 2017-02-16 16:37 | NUR ---
Social Work-initial assessment/ CD assessment: Data:See initial assessment. Pt is a 51 y/o male who was admitted on 02/15/17 for UGI bleed per H&P. Pt's insurance is [facility] and [facility] [email or web address] and PCP is Patric Arvizu MD. EMR Reviewed. Pt's readmission score is 6-high risk. SW met with pt to discuss discharge planning, SW role explained. Pt is alert and oriented x3. Pt resides on [address] with roommate where he remains independent with ADLs. Pt does not drive and does not use any DME. pt has no HH or SNF history. Pt has no jail care insurance or VA benefits. SW discussed DPOA/ advanced directive, pt states he has not completed this, information provided to pt. SW provided pt with discharge planning checklist and encouraged pt to call with any questions, phone number provided on white board in room. Pt confirms his family will provide transport home. order received for CD assessment. SW spoke with pt regarding his alcohol use. Pt informed SW that he has been sober for a long time, but about 2 months again had a relapse for a couple days. Pt states he has been to inpt treatment before and did not find this super helpful. Pt identifies many people in his life that are supportive, roommate, sister, girlfriend. SW discussed CD resources and pt declined stating he already knows all the resources and does not feel like this would be helpful. Pt plans to not drink post hospitalization. Assessment:pt who is independent at baseline. Plan:Pt to discharge home when medically stable via pOV. Pt declining CD resources. No anticipated discharge needs. SW will continue to follow if needs arise. ROBERTO Mckinley Addendum: 02/16/17 at 1643 by YOSELIN REDDY Amended: Links added.
--- NOTE | 2017-02-16 18:25 | NUR ---
Mentation/education A&Ox3, conversant throughout shift. No reports of pain/discomfort. Discussed healthier food choices especially when BG are so high, pt states being open to changes, but also states he "could really go for a big ol' burger, or an [employer] sandwich right now". Reinforcement needed
[2017-02-16] MEDS: Insulin LISPRO High-Dose Scale SUBQ SCH (22:23)
[2017-02-17] VITALS (9 sets, daily range): BP systolic 125–144; BP diastolic 74–89; PULSE 68–77; RESP 16; O2SAT 95–96
[2017-02-17] MEDS: cefTRIAXone Inj 1,000 MG in Dextrose 5% Minibag Plus 50 ML IV SCH (05:00)
[2017-02-17] MEDS: Pantoprazole Inj 80 MG, Pharmacy To Mix 1 EA in 0.9% Sodium Chloride 80 ML IV SCH ×4 (05:00→16:42)
[2017-02-17] MEDS: Morphine ER 15 mg (MS Contin) Tablet PO SCH ×3 (05:02→22:20)
[2017-02-17] MEDS: Octreotide Inj 500 MCG in 0.9% Sodium Chloride 99 ML IV SCH ×3 (05:47→16:42)
[2017-02-17] MEDS: 0.9% Sodium Chloride 1,000 ML IV SCH ×2 (05:48→16:04)
--- NOTE | 2017-02-17 06:18 | NUR ---
Education/Pain Pt voices interest in more dietary information and has intention of making healthier food choices and sticking to his medication regimen, especially the Lactulose. Informative discussion about avoidance of fatty and sugary foods and choices of whole grains over refined flour products. Pt reports back pain at 6-7/10, pain meds given as scheduled but pt reports not much change in pain level but does not request higher doses.
[2017-02-17 06:41] LABS: BASOPHILS % (AUTO) 1.6 % (0-3); EOSINOPHILS % (AUTO) 7.3 % (0-5); MONOCYTES % (AUTO) 12.2 % (4-12); NEUTROPHILS % (AUTO) 50.4 % (40-74); Platelet Count 113 bil/L (150-400)
[2017-02-17] MEDS: Insulin LISPRO High-Dose Scale SUBQ SCH ×4 (08:37→22:00)
[2017-02-17] MEDS: Lactulose 20 Gm/30 mL 30 mL Syrup PO SCH ×3 (08:38→22:22)
--- NOTE | 2017-02-17 08:39 | PCM.PNMED ---
Subjective Date of Service Feb 17, 2017 Subjective GASTROENTEROLOGY PROGRESS NOTE: Attending Physician: Noman Cao MD Resident Physician: Elke Crow DO No acute events overnight. Patient is sitting up in bed and appears comfortable. He is more alert and in good spirits this morning. He states that he is actually able to carry on a conversation without fading off. He reports back pain which is chronic and at baseline. Tolerated clear liquid diet yesterday and is excited to have some 'real food' this morning. Denies abdominal pain, nausea, vomiting, shortness of breath, and chest pain. Exam Vital Signs Vital Sign - Last Date Time Temp Pulse Resp B/P Pulse Ox O2 Delivery O2 Flow Rate FiO2 02/17/17 06:11 68 02/17/17 05:43 36.6 16 125/83 95 Room Air 02/15/17 18:01 6 Intake and Output 02/16/17 02/16/17 02/17/17 Cumulative From/Thru 15:00 23:00 07:00 02/14/17 23:56 - 02/17/17 06:11 Intake Total 960 ml 2798 ml 7804 ml Output Total 800 ml 2675 ml Balance 160 ml 2798 ml 5129 ml Intake Oral 960 ml 960 ml IV Total 2798 ml 6844 ml Output Urine Total 800 ml 2675 ml # Bowel Movements 0 1 Exam General: Middle-aged male in no acute distress. Communicating appropriately HEENT: Atraumatic. Scleral icterus. Mucous membranes moist/pink Lungs: Clear to auscultation bilaterally Cardiovascular: Regular rate/rhythm. No murmurs Abdomen: Soft, Non-tender, Non-distended, No masses, Normoactive bowel tones Extremities: No cyanosis or edema Skin: Mild jaundice, No obvious rashes or ulcerations Neurological: AOx3, No focal neurologic deficit. IVs and Medications Medications Reviewed: Medications were reviewed in detail Lab and Diagnostics Laboratory Tests Test 02/16/17 07:57 02/17/17 06:01 White Blood Count 3.3th/mm3 (3.8-10.1) 2.5th/mm3 (3.8-10.1) Red Blood Count 3.02mil/mm3 (4.40-5.80) 3.00mil/mm3 (4.40-5.80) Hemoglobin 9.0g/dL (13.8-17.2) 8.7g/dL (13.8-17.2) Hematocrit 27.9% (41.0-50.0) 27.9% (41.0-50.0) Mean Corpuscular Volume 92.4fL (81-100) 93.0fL (81-100) Mean Corpuscular Hemoglobin 29.8pg (27.0-35.0) 29.0pg (27.0-35.0) Mean Corpuscular Hemoglobin Concent 32.3% (32.0-37.0) 31.2% (32.0-37.0) Red Cell Distribution Width 17.6% (12.3-15.4) 16.6% (12.3-15.4) Platelet Count 113bil/L (150-400) 113bil/L (150-400) Neutrophils (%) (Auto) 51.3% (40-74) 50.4% (40-74) Lymphocytes (%) (Auto) 29.2% (14-46) 28.5% (14-46) Monocytes (%) (Auto) 12.0% (4-12) 12.2% (4-12) Eosinophils (%) (Auto) 6.0% (0-5) 7.3% (0-5) Basophils (%) (Auto) 1.2% (0-3) 1.6% (0-3) Sodium Level 142mEq/L (134-144) 137mEq/L (134-144) Potassium Level 3.4mEq/L (3.5-5.2) 3.2mEq/L (3.5-5.2) Chloride Level 109mEq/L (97-108) 106mEq/L (97-108) Carbon Dioxide Level 21mmol/L (18-29) 18mmol/L (18-29) Blood Urea Nitrogen 14mg/dL (6-24) 10mg/dL (6-24) Creatinine 0.60mg/dL (0.76-1.27) 0.68mg/dL (0.76-1.27) Estimat Glomerular Filtration Rate 150mL/min (>59) 130mL/min (>59) Glucose Level 169mg/dL (60-99) 143mg/dL (60-99) Calcium Level 8.1mg/dL (8.5-10.1) 7.6mg/dL (8.5-10.1) Total Bilirubin 2.3mg/dL (0.0-1.2) Aspartate Amino Transf (AST/SGOT) 88U/L (0-50) Alanine Aminotransferase (ALT/SGPT) 46U/L (0-44) Alkaline Phosphatase 138U/L (25-150) Total Protein 6.7g/dL (6.4-8.4) Albumin 2.6g/dL (3.4-5.0) Microbiology 02/15/17 Stool Occult Blood - Positive Result Diagram: 02/17/1760002/17/17 06 X-Rays, CTs and MRIs 02/15/17 - CT BRAIN WITHOUT CONTRAST IMPRESSION: 1. No acute intracranial process. Approved by: Mary Ty M.D. on 02/15/2017 at 11:59 02/15/17 - US ABDOMEN IMPRESSION: 1. Coarse appearance of the liver and this patient with history of hepatic cirrhosis. No discrete focal hepatic abnormality seen. 2. Sonographic splenomegaly. 3. Cholelithiasis without cholecystitis. Approved by: Mary Ty M.D. on 02/15/2017 at 20:24 . Additional Diagnostics 02/15/17 - EGD Pre Procedure Diagnosis: Anemia and melena Post Procedure Dx & Findings: Severe portal hypertensive gastropathy and esophageal varices antritis with erosions. PROCEDURE IN DETAIL: After proper sedation, Olympus video endoscope was inserted into patient's mouth and esophagus was successfully intubated. Scope introduced esophagus. Esophagus showed normal shiny whitish mucosa consistent with squamous cell component. Z line was intact at 40 cm from the incisors. From mid esophagus, I saw 4 columns of varices. One column was grade 3 varices in the other 3 columns were about grade 1-2 varices. No stigmata noted. Right below the Z line, it appears that patient had significant inflammation and irritation and this continued throughout the entire stomach. This body of the stomach showed severe portal hypertensive gastropathy. Antrum showed significant inflammation with multiple erosions. On some of the erosions, there was a clot. Clot was washed. Underneath it, there were clean-based erosions. Cardia fundus body antrum pylorus were all visualized. Retroflexion was done. Stomach was easily inflated and deflatable using air. Scope further events to the distal duodenum. Duodenum revealed normal villous structures with normal appearing folds without any mass ulcer erosion. IMPRESSION: Severe portal hypertensive gastropathy - probable source of melena esophageal varices antritis with erosions with clots.- Probable source of melena. RECOMMENDATION: - 5 days of IV PPI IV octreotide and antibiotics. - Please send the patient out on propanolol 10 mg by mouth twice a day initially and titrate up. Target heart rate mid 50s. - Patient with follow-up with his bottler helper in [place] after discharge. Post Procedure Recommendations - Restrict activities today. - Resume normal activities in the morning. - Resume medications. - GERD behavioral modification: - Avoid fatty, acidic, spicy, large meals - Do not lie down after meals - Do not eat or drink anything for at least 2 1/2 hours before going to bed at night - Discontinue tobacco and alcohol - Decrease or avoid caffeine - Avoid chocolate and mints - Decrease weight - Avoid aspirin and non steroidal anti-inflammatory agents (NSAID) such as Aleve, Advil, Mobic, Naproxen, Ibuprofen, etc - Add proton pump inhibitor. Take 30 minutes before 1st meal of the day. - Patient informed of normal post procedure side effects as bloating, drowsiness , blood streaking in the stool - If gastric biopsy reveal H.pylori, continue with appropriate treatment - If small bowel biopsy reveals celiac, continue with appropriate treatment Noman Cao MD Assessment & Plan 51-year-old with a history of alcohol-related cirrhosis, iron deficiency anemia , diabetes, CVA, and recent admission here in December for hepatic encephalopathy with ataxia and probable Wernicke's encephalopthy as well as hyponatremia secondary to SIADH who presented to the ED with his girlfriend for increased confusion. GI consulted for further evaluation of melena. Upper GI bleed secondary to portal hypertensive gastropathy in patient with alcoholic cirrhosis, hepatic encephalopathy, alcohol use, and prior GI bleeding related to esophageal varices. - Patient reported missed doses of Lactulose prior to admission. He denies recent alcohol use and states that his last drink was in December. Blood alcohol level on admission was negative. - Catalyst for acute change in mental status likely noncompliance/ inconsistently taking Lactulose. - Ammonia 266 at presentation. Clinically his mental status is improving with Lactulose and Rifaximin stopped 02/16 patient did not fail Lactulose, he stopped taking it. - EGD on 02/15 - Severe portal hypertensive gastropathy - esophageal varices antritis with erosions with clots. - Patient currently takes 81mg Aspirin daily and due to gastric erosions noted on EGD at a higher risk for bleeding. Suggest close outpatient followup with Senior Net Developer Architect in [place] and PCP. We will defer whether or not to continue aspirin to develop primary care service and to the primary care physician. RECOMMENDATIONS: - 5 days of IV PPI, IV octreotide and antibiotics - Would discharge on Propanolol 10 mg PO BID and titrate up, target HR mid 50s - Continue Lactulose 10mg PO TID (hold for diarrhea) - Monitor LFTs and monitor ammonia. Await biopsies - GERD behavioral modification - Follow-up with his bottler helper in [place] after discharge - Rehab for alcohol use Additional Problems managed by primary hospitalist: -Diabetes mellitus, chronic. -Hypertension, Chronic -Chronic pain syndrome . I examined the patient with the resident and agree with above. GI Prophylaxis: Proton Pump Inhibitor Resuscitation Status: CPR: Attempt Resuscitation Elke Crow DO Feb 17, 2017 07:32 Noman Cao MD Feb 17, 2017 09:36
[2017-02-17] MEDS ORDERED: Albuterol-Ipratropium 3 mL Inhalation Solution NEB PRN (13:00)
--- NOTE | 2017-02-17 13:08 | NUR ---
Discharge Planning Continued: D&A: Received phone call from patient's sister/Xi requesting CRAFT DEMONSTRATOR visit to go over DPOA paperwork. Notified Xi that CRAFT DEMONSTRATOR would check in with patient by 12:30pm today. Met with pt. and sister/Xi at bedside. Xi with several questions pertaining to DPOA paperwork that patient had been given. Pt. reports that he has done one in the past and that [facility] should have on file? Asked patient to call medical records with CRAFT DEMONSTRATOR present. DPOA paperwork located and [place] to [facility]. Both patient and sister/Xi confirm that DPOA paperwork correct. Made them 3 copies. DPOA paperwork completed in 2010 and patient assigned/confirmed that sister/Xi is his decision maker if he is unable. Per MD in AM rounds pt. most likely will remain hospitalized over the weekend. Pt. and family notified. P: Home when medically stable. ROBERTO Martinez
[2017-02-17] MEDS ORDERED: AMLO5TAB2 PO (14:02)
--- NOTE | 2017-02-17 14:03 | PCM.PNMED ---
Subjective Date of Service Feb 17, 2017 Subjective No overnight events. Tolerating diet so far. No BM yet. Exam Vital Signs Vital Sign - Last Date Time Temp Pulse Resp B/P Pulse Ox O2 Delivery O2 Flow Rate FiO2 02/17/17 13:38 36.7 72 16 144/84 96 Room Air 02/15/17 18:01 6 Intake and Output 02/16/17 02/16/17 02/17/17 Cumulative From/Thru 15:00 23:00 07:00 02/14/17 23:56 - 02/17/17 06:11 Intake Total 960 ml 2798 ml 7804 ml Output Total 800 ml 2675 ml Balance 160 ml 2798 ml 5129 ml Intake Oral 960 ml 960 ml IV Total 2798 ml 6844 ml Output Urine Total 800 ml 2675 ml # Bowel Movements 0 1 Exam General: male in no acute distress. More alert and awake today AOX2. HEENT: Normocephalic, atraumatic. PERRLA. Scleral icterus. Mucous membranes dry Lungs: Clear to auscultation bilaterally with no crackles, wheezes, or rhonchi. Cardiovascular: Regular rate/rhythm. No murmurs Abdomen: Soft, Non-tender, Non-distended, No masses, Normoactive bowel tones Extremities: No cyanosis or edema Skin: Mild jaundice, No obvious rashes or ulcerations Neurological: AOx3, No focal neurologic deficit. IVs and Medications Medications Reviewed: Medications were reviewed in detail Lab and Diagnostics Result Diagram: 02/17/17 0601 02/17/17 0601 X-Rays, CTs and MRIs 02/15/17 - CT BRAIN WITHOUT CONTRAST IMPRESSION: 1. No acute intracranial process. Approved by: Mary Ty M.D. on 02/15/2017 at 11:59 02/15/17 - US ABDOMEN IMPRESSION: 1. Coarse appearance of the liver and this patient with history of hepatic cirrhosis. No discrete focal hepatic abnormality seen. 2. Sonographic splenomegaly. 3. Cholelithiasis without cholecystitis. Approved by: Mary Ty M.D. on 02/15/2017 at 20:24 . Additional Diagnostics 02/15/17 - EGD Pre Procedure Diagnosis: Anemia and melena Post Procedure Dx & Findings: Severe portal hypertensive gastropathy and esophageal varices antritis with erosions. PROCEDURE IN DETAIL: After proper sedation, Olympus video endoscope was inserted into patient's mouth and esophagus was successfully intubated. Scope introduced esophagus. Esophagus showed normal shiny whitish mucosa consistent with squamous cell component. Z line was intact at 40 cm from the incisors. From mid esophagus, I saw 4 columns of varices. One column was grade 3 varices in the other 3 columns were about grade 1-2 varices. No stigmata noted. Right below the Z line, it appears that patient had significant inflammation and irritation and this continued throughout the entire stomach. This body of the stomach showed severe portal hypertensive gastropathy. Antrum showed significant inflammation with multiple erosions. On some of the erosions, there was a clot. Clot was washed. Underneath it, there were clean-based erosions. Cardia fundus body antrum pylorus were all visualized. Retroflexion was done. Stomach was easily inflated and deflatable using air. Scope further events to the distal duodenum. Duodenum revealed normal villous structures with normal appearing folds without any mass ulcer erosion. IMPRESSION: Severe portal hypertensive gastropathy - probable source of melena esophageal varices antritis with erosions with clots.- Probable source of melena. RECOMMENDATION: - 5 days of IV PPI IV octreotide and antibiotics. - Please send the patient out on propanolol 10 mg by mouth twice a day initially and titrate up. Target heart rate mid 50s. - Patient with follow-up with his sap business analyst in [place] after discharge. Post Procedure Recommendations - Restrict activities today. - Resume normal activities in the morning. - Resume medications. - GERD behavioral modification: - Avoid fatty, acidic, spicy, large meals - Do not lie down after meals - Do not eat or drink anything for at least 2 1/2 hours before going to bed at night - Discontinue tobacco and alcohol - Decrease or avoid caffeine - Avoid chocolate and mints - Decrease weight - Avoid aspirin and non steroidal anti-inflammatory agents (NSAID) such as Aleve, Advil, Mobic, Naproxen, Ibuprofen, etc - Add proton pump inhibitor. Take 30 minutes before 1st meal of the day. - Patient informed of normal post procedure side effects as bloating, drowsiness , blood streaking in the stool - If gastric biopsy reveal H.pylori, continue with appropriate treatment - If small bowel biopsy reveals celiac, continue with appropriate treatment Noman Cao MD Assessment & Plan Jonathan Rosen is a 51 y/o male with Alcohol-related cirrhosis, iron deficiency anemia, non-insulin using diabetes mellitus, CVA, and chronic pain associated with lumbar DJD who presents to [facility] emergency department with confusion Acute Upper Gastrointestinal bleeding. Present on admission GI following, Dr. Cao. Performed EGD on 02/16- Severe portal hypertensive gastropathy - probable source of melena, esophageal varices, antritis with erosions with clots.- Probable source of melena. - 5 days of IV PPI, IV octreotide and antibiotics to be completed 02/19. - discharge on Propanolol 10 mg PO BID and titrate up, target HR mid 50s - Await biopsies - Follow-up with his sap business analyst in [place] after discharge - Rehab for alcohol use Acute on chronic Hepatic encephalopathy, Present on admission, active. Patient is a heavy drinker with known history of Hepatic encephalopathy and on Lactulose as outpatient. - avoid benzodiazepine and high dose narcotics - Per GI, Continue Lactulose 10mg PO TID (hold for diarrhea), stopped Rifaximin 600mg PO BID as encephalopathy was likely due lactulose non-adherence. - Follow-up with his sap business analyst in [place] after discharge Alcohol abuse, present on admission, active. - AST and ALT in ratio consistent with alcohol abuse. - No further evidence of withdrawal symptoms noted Diabetes mellitus, chronic. - holding Januvia and glipizide. - medium Lispro correctional scale. - Hemoglobin A1c 6.6 - Dietary Consult 02/17 ordered. Hypertension, Chronic - Resume Amlodipine 5 mg daily on 02/17. Chronic pain syndrome - Continue home regimen of Gabapentin 600 mg 3 times, MS Contin hm regimen. Status- expected length of stay greater than 2 midnights due to severity of presenting symptoms, risk of adverse events, and complexity of treatment plan. GI Prophylaxis: Proton Pump Inhibitor Resuscitation Status: CPR: Attempt Resuscitation Pedro Luis Bustillos MD Feb 17, 2017 14:03
--- NOTE | 2017-02-17 14:05 | NUR ---
NUTRITION CONSULT Consult received re dm diet/cirrhosis diet education. Pt and family in room during education. Reviewed ways to moderate protein, sodium and carbohydrate intake for cirrhosis/diabetic diet. Encouraged reduced intake of high protein drinks with hepatic encephalopathy. Pt receptive to information, not interested in outpatient education at this time d/t time/transportation constraints. LABS: A1c 6.6.
--- NOTE | 2017-02-17 18:42 | NUR ---
Education Continued education regarding DM diet choices (ie complex carbs vs refined & simple carbs). Pt eager to participate in conversation.
[2017-02-18] VITALS (7 sets, daily range): BP systolic 133–134; BP diastolic 80–87; PULSE 71–89; RESP 16–20; O2SAT 95–96
[2017-02-18] MEDS: Pantoprazole Inj 80 MG, Pharmacy To Mix 1 EA in 0.9% Sodium Chloride 80 ML IV SCH ×4 (03:51→14:17)
[2017-02-18] MEDS: Octreotide Inj 500 MCG in 0.9% Sodium Chloride 99 ML IV SCH ×2 (03:51→14:16)
[2017-02-18] MEDS: 0.9% Sodium Chloride 1,000 ML IV SCH ×3 (03:52→21:31)
[2017-02-18] MEDS: cefTRIAXone Inj 1,000 MG in Dextrose 5% Minibag Plus 50 ML IV SCH (06:23)
[2017-02-18] MEDS: Morphine ER 15 mg (MS Contin) Tablet PO SCH ×3 (06:24→21:31)
--- NOTE | 2017-02-18 06:33 | NUR ---
Pain: Pt c/o chronic back pain, PO scheduled med administered; effective. Pt denied chest pain and SOB, slept most of the night, pleasant and cooperative with care.
[2017-02-18 06:48] LABS: BASOPHILS % (AUTO) 1.6 % (0-3); EOSINOPHILS % (AUTO) 4.9 % (0-5); MONOCYTES % (AUTO) 11.3 % (4-12); Mean Corpuscular Hemoglobin 29.6 pg (27.0-35.0); Mean Corpuscular Volume 92.1 fL (81-100); NEUTROPHILS % (AUTO) 59.5 % (40-74); Platelet Count 110 bil/L (150-400)
[2017-02-18] MEDS: Lactulose 20 Gm/30 mL 30 mL Syrup PO SCH ×3 (08:10→21:31)
[2017-02-18] MEDS: Insulin LISPRO High-Dose Scale SUBQ SCH ×2 (08:11→12:17)
[2017-02-18] MEDS ORDERED: Lactulose 10 Gm/15 mL 473 mL Solution PO ONE (15:10)
[2017-02-18] MEDS ORDERED: GLIP10TA10 PO (15:18)
[2017-02-18] MEDS ORDERED: SITA100T12 PO (15:19)
[2017-02-18] MEDS ORDERED: GLPZ5T (15:19)
--- NOTE | 2017-02-18 15:23 | PCM.PNMED ---
Subjective Date of Service Feb 18, 2017 Subjective Still no BM despite getting Lactulose. Exam Vital Signs Vital Sign - Last Date Time Temp Pulse Resp B/P Pulse Ox O2 Delivery O2 Flow Rate FiO2 02/18/17 09:29 36.8 88 16 134/83 95 Room Air 02/15/17 18:01 6 Intake and Output 02/17/17 02/17/17 02/18/17 Cumulative From/Thru 15:00 23:00 07:00 02/14/17 23:56 - 02/18/17 06:48 Intake Total 475 ml 1389 ml 1948 ml 65174 ml Output Total 725 ml 500 ml 725 ml 4625 ml Balance -250 ml 889 ml 1223 ml 6991 ml Intake Oral 475 ml 486 ml 922 ml 2843 ml IV Total 903 ml 1026 ml 8773 ml Output Urine Total 725 ml 500 ml 725 ml 4625 ml # Bowel Movements 1 Exam General: male in no acute distress. AOX3. HEENT: Normocephalic, atraumatic. PERRLA. Scleral icterus. Mucous membranes dry Lungs: Clear to auscultation bilaterally with no crackles, wheezes, or rhonchi. Cardiovascular: Regular rate/rhythm. No murmurs Abdomen: Firm, Non-tender, +Distended. No masses, BS present. Extremities: No cyanosis or edema Skin: Mild jaundice, No obvious rashes or ulcerations Neurological: AOx3, No focal neurologic deficit. IVs and Medications Medications Reviewed: Medications were reviewed in detail Lab and Diagnostics Result Diagram: 02/18/17 0541 02/18/17 0541 X-Rays, CTs and MRIs 02/15/17 - CT BRAIN WITHOUT CONTRAST IMPRESSION: 1. No acute intracranial process. Approved by: Mary Ty M.D. on 02/15/2017 at 11:59 02/15/17 - US ABDOMEN IMPRESSION: 1. Coarse appearance of the liver and this patient with history of hepatic cirrhosis. No discrete focal hepatic abnormality seen. 2. Sonographic splenomegaly. 3. Cholelithiasis without cholecystitis. Approved by: Mary Ty M.D. on 02/15/2017 at 20:24 . Additional Diagnostics 02/15/17 - EGD Pre Procedure Diagnosis: Anemia and melena Post Procedure Dx & Findings: Severe portal hypertensive gastropathy and esophageal varices antritis with erosions. PROCEDURE IN DETAIL: After proper sedation, Olympus video endoscope was inserted into patient's mouth and esophagus was successfully intubated. Scope introduced esophagus. Esophagus showed normal shiny whitish mucosa consistent with squamous cell component. Z line was intact at 40 cm from the incisors. From mid esophagus, I saw 4 columns of varices. One column was grade 3 varices in the other 3 columns were about grade 1-2 varices. No stigmata noted. Right below the Z line, it appears that patient had significant inflammation and irritation and this continued throughout the entire stomach. This body of the stomach showed severe portal hypertensive gastropathy. Antrum showed significant inflammation with multiple erosions. On some of the erosions, there was a clot. Clot was washed. Underneath it, there were clean-based erosions. Cardia fundus body antrum pylorus were all visualized. Retroflexion was done. Stomach was easily inflated and deflatable using air. Scope further events to the distal duodenum. Duodenum revealed normal villous structures with normal appearing folds without any mass ulcer erosion. IMPRESSION: Severe portal hypertensive gastropathy - probable source of melena esophageal varices antritis with erosions with clots.- Probable source of melena. RECOMMENDATION: - 5 days of IV PPI IV octreotide and antibiotics. - Please send the patient out on propanolol 10 mg by mouth twice a day initially and titrate up. Target heart rate mid 50s. - Patient with follow-up with his plate painter in [place] after discharge. Post Procedure Recommendations - Restrict activities today. - Resume normal activities in the morning. - Resume medications. - GERD behavioral modification: - Avoid fatty, acidic, spicy, large meals - Do not lie down after meals - Do not eat or drink anything for at least 2 1/2 hours before going to bed at night - Discontinue tobacco and alcohol - Decrease or avoid caffeine - Avoid chocolate and mints - Decrease weight - Avoid aspirin and non steroidal anti-inflammatory agents (NSAID) such as Aleve, Advil, Mobic, Naproxen, Ibuprofen, etc - Add proton pump inhibitor. Take 30 minutes before 1st meal of the day. - Patient informed of normal post procedure side effects as bloating, drowsiness , blood streaking in the stool - If gastric biopsy reveal H.pylori, continue with appropriate treatment - If small bowel biopsy reveals celiac, continue with appropriate treatment Noman Cao MD Assessment & Plan Jonathan Rosen is a 51 y/o male with Alcohol-related cirrhosis, iron deficiency anemia, non-insulin using diabetes mellitus, CVA, and chronic pain associated with lumbar DJD who presents to [facility] emergency department with confusion Acute Upper Gastrointestinal bleeding. Present on admission GI following, Dr. Cao. Performed EGD on 02/16- Severe portal hypertensive gastropathy - probable source of melena, esophageal varices, antritis with erosions with clots.- Probable source of melena. - 5 days of IV PPI, IV octreotide and antibiotics to be completed 02/19. - discharge on Propanolol 10 mg PO BID and titrate up, target HR mid 50s - Await biopsies - Follow-up with his plate painter in [place] after discharge - Rehab for alcohol use Acute on chronic Hepatic encephalopathy, Present on admission, active. Patient is a heavy drinker with known history of Hepatic encephalopathy and on Lactulose as outpatient. - avoid benzodiazepine and high dose narcotics - Stopped Rifaximin 600mg PO BID as encephalopathy was likely due lactulose non- adherence. - 02/18-Increased Lactulose 20mg PO TID as no BM so far, can tirate down once 2- 3 BM over 24hrs. - Follow-up with his plate painter in [place] after discharge Alcohol abuse, present on admission, active. - No further evidence of withdrawal symptoms noted - CD assessment done by KAMLA. Diabetes mellitus, chronic. - Januvia 100mg qd, and glipizide 5mg AM 10mg PM, resumed 02/18. - medium Lispro correctional scale. - Hemoglobin A1c 6.6 - Dietary Consult performed. Hypertension, Chronic - Resume Amlodipine 5 mg daily on 02/17. Chronic pain syndrome - Continue home regimen of Gabapentin 600 mg 3 times, MS Contin hm regimen. Status- expected length of stay greater than 2 midnights due to severity of presenting symptoms, risk of adverse events, and complexity of treatment plan. GI Prophylaxis: Proton Pump Inhibitor Resuscitation Status: CPR: Attempt Resuscitation Pedro Luis Bustillos MD Feb 18, 2017 15:23
[2017-02-18] MEDS ORDERED: Lactulose 20 Gm/30 mL 30 mL Syrup PO ONE (15:25)
[2017-02-18] MEDS ORDERED: Glucose 40% Oral Gel 15 Gm Tube PO PRN (15:45)
[2017-02-19] MEDS: Octreotide Inj 500 MCG in 0.9% Sodium Chloride 99 ML IV SCH ×3 (00:24→20:41)
[2017-02-19] MEDS: Pantoprazole Inj 80 MG, Pharmacy To Mix 1 EA in 0.9% Sodium Chloride 80 ML IV SCH ×4 (00:24→10:34)
[2017-02-19] MEDS: Morphine ER 15 mg (MS Contin) Tablet PO SCH ×3 (05:27→21:31)
[2017-02-19] MEDS: cefTRIAXone Inj 1,000 MG in Dextrose 5% Minibag Plus 50 ML IV SCH (05:27)
[2017-02-19 06:34] VITALS: BP 118/72; PULSE 84; RESP 18; O2SAT 95
[2017-02-19] MEDS ORDERED: Sodium Biphos-Phos 133 mL Enema RECTAL PRN (07:40)
[2017-02-19 08:01] LABS: BASOPHILS % (AUTO) 0.5 % (0-3); EOSINOPHILS % (AUTO) 3.6 % (0-5); MONOCYTES % (AUTO) 14.5 % (4-12); Mean Corpuscular Hemoglobin 29.3 pg (27.0-35.0); Mean Corpuscular Volume 91.4 fL (81-100); NEUTROPHILS % (AUTO) 62.8 % (40-74); Platelet Count 108 bil/L (150-400)
[2017-02-19 08:14] VITALS: PULSE 83; RESP 16; O2SAT 93
[2017-02-19] MEDS: Lactulose 20 Gm/30 mL 30 mL Syrup PO SCH ×3 (08:14→20:04)
[2017-02-19] MEDS: 0.9% Sodium Chloride 1,000 ML IV SCH ×2 (08:15→18:32)
[2017-02-19 08:39] LABS: Magnesium 1.3 mg/dL (1.6-2.6)
[2017-02-19 09:33] VITALS: BP 116/76; PULSE 89; RESP 20; O2SAT 96
[2017-02-19] MEDS ORDERED: Magnesium Sulf 2 Gm/50mL Water 2 GM in IV Premix 1 EACH IV ONE (10:20)
--- NOTE | 2017-02-19 11:02 | NUR ---
BM/Enema: No BM since 02/15, pt reported. Bowel tones present, passing flatus, distended. Scheduled lactulose for elevated ammonia level administered. Received MD order for Fleets Enema. Patient placed on left side laying position and instructed to hold on to solution for as long as possible. Enema administered. BSC placed near bed. Approx 20min later patient had extra large BM. Explained that we want to continue to have BM throughout day and if not, will administer additional Fleets Enema this afternoon. Verbalized understanding. Will continue to monitor for BM. Addendum: 02/19/17 at 1623 by ARNOLDO CURTIS RN No additional BM since 1st fleet enema this am. Administered 2nd fleet enema this afternoon and scheduled lactulose. Approx 20 min later, patient had a soft, extra-large BM. Will continue to monitor for additional BM.
--- NOTE | 2017-02-19 13:48 | PCM.PNMED ---
Subjective Date of Service Feb 19, 2017 Subjective No BM overnight. Gave Fleet Enema this AM and had large BM. Exam Vital Signs Vital Sign - Last Date Time Temp Pulse Resp B/P Pulse Ox O2 Delivery O2 Flow Rate FiO2 02/19/17 09:33 36.4 89 20 116/76 96 Room Air 02/15/17 18:01 6 Intake and Output 02/18/17 02/18/17 02/19/17 Cumulative From/Thru 15:00 23:00 07:00 02/14/17 23:56 - 02/19/17 05:32 Intake Total 141 ml 2409 ml 979 ml 14987 ml Output Total 1000 ml 5625 ml Balance 141 ml 1409 ml 979 ml 9520 ml Intake Oral 600 ml 3443 ml IV Total 141 ml 1809 ml 979 ml 17123 ml Output Urine Total 1000 ml 5625 ml # Bowel Movements 1 Exam General: male in no acute distress. AOX3. HEENT: Normocephalic, atraumatic. PERRLA. Scleral icterus. Mucous membranes dry Lungs: Clear to auscultation bilaterally with no crackles, wheezes, or rhonchi. Cardiovascular: Regular rate/rhythm. No murmurs Abdomen: Firm, Non-tender, +Distended. No masses, BS present. Extremities: No cyanosis or edema Skin: Mild jaundice, No obvious rashes or ulcerations Neurological: AOx3, No focal neurologic deficit. IVs and Medications Medications Reviewed: Medications were reviewed in detail Lab and Diagnostics Result Diagram: 02/19/17 0745 02/19/17 0745 X-Rays, CTs and MRIs 02/15/17 - CT BRAIN WITHOUT CONTRAST IMPRESSION: 1. No acute intracranial process. Approved by: Mary Ty M.D. on 02/15/2017 at 11:59 02/15/17 - US ABDOMEN IMPRESSION: 1. Coarse appearance of the liver and this patient with history of hepatic cirrhosis. No discrete focal hepatic abnormality seen. 2. Sonographic splenomegaly. 3. Cholelithiasis without cholecystitis. Approved by: Mary Ty M.D. on 02/15/2017 at 20:24 . Additional Diagnostics 02/15/17 - EGD Pre Procedure Diagnosis: Anemia and melena Post Procedure Dx & Findings: Severe portal hypertensive gastropathy and esophageal varices antritis with erosions. PROCEDURE IN DETAIL: After proper sedation, Olympus video endoscope was inserted into patient's mouth and esophagus was successfully intubated. Scope introduced esophagus. Esophagus showed normal shiny whitish mucosa consistent with squamous cell component. Z line was intact at 40 cm from the incisors. From mid esophagus, I saw 4 columns of varices. One column was grade 3 varices in the other 3 columns were about grade 1-2 varices. No stigmata noted. Right below the Z line, it appears that patient had significant inflammation and irritation and this continued throughout the entire stomach. This body of the stomach showed severe portal hypertensive gastropathy. Antrum showed significant inflammation with multiple erosions. On some of the erosions, there was a clot. Clot was washed. Underneath it, there were clean-based erosions. Cardia fundus body antrum pylorus were all visualized. Retroflexion was done. Stomach was easily inflated and deflatable using air. Scope further events to the distal duodenum. Duodenum revealed normal villous structures with normal appearing folds without any mass ulcer erosion. IMPRESSION: Severe portal hypertensive gastropathy - probable source of melena esophageal varices antritis with erosions with clots.- Probable source of melena. RECOMMENDATION: - 5 days of IV PPI IV octreotide and antibiotics. - Please send the patient out on propanolol 10 mg by mouth twice a day initially and titrate up. Target heart rate mid 50s. - Patient with follow-up with his steel erecting pusher in [place] after discharge. Post Procedure Recommendations - Restrict activities today. - Resume normal activities in the morning. - Resume medications. - GERD behavioral modification: - Avoid fatty, acidic, spicy, large meals - Do not lie down after meals - Do not eat or drink anything for at least 2 1/2 hours before going to bed at night - Discontinue tobacco and alcohol - Decrease or avoid caffeine - Avoid chocolate and mints - Decrease weight - Avoid aspirin and non steroidal anti-inflammatory agents (NSAID) such as Aleve, Advil, Mobic, Naproxen, Ibuprofen, etc - Add proton pump inhibitor. Take 30 minutes before 1st meal of the day. - Patient informed of normal post procedure side effects as bloating, drowsiness , blood streaking in the stool - If gastric biopsy reveal H.pylori, continue with appropriate treatment - If small bowel biopsy reveals celiac, continue with appropriate treatment Cao,Young K. MD Assessment & Plan Jonathan Rosen is a 51 y/o male with Alcohol-related cirrhosis, iron deficiency anemia, non-insulin using diabetes mellitus, CVA, and chronic pain associated with lumbar DJD who presents to [facility] emergency department with confusion Acute Upper Gastrointestinal bleeding. Present on admission GI following, Dr. Cao. Performed EGD on 02/16- Severe portal hypertensive gastropathy - probable source of melena, esophageal varices, antritis with erosions with clots.- Probable source of melena. - 5 days of IV PPI, IV octreotide and antibiotics, started 02/15/17, Day 5 on . - discharge on Propanolol 10 mg PO BID and titrate up, target HR mid 50s - F/u biopsies - Follow-up with his steel erecting pusher in [place] after discharge - Rehab for alcohol use Acute on chronic Hepatic encephalopathy, Present on admission, active. Patient is a heavy drinker with known history of Hepatic encephalopathy and on Lactulose as outpatient. - avoid benzodiazepine and high dose narcotics - Stopped Rifaximin 600mg PO BID as encephalopathy was likely due lactulose non- adherence. - 02/18-Increased Lactulose 20mg PO TID as no BM so far, can tirate down once 2- 3 BM over 24hrs. - Follow-up with his steel erecting pusher in [place] after discharge Constipation- acute, active Likely due to narcotics. 02/18-Increased Lactulose 20mg PO TID as no BM so far, can tirate down once 2-3 BM over 24hrs. Given Fleet Enema 02/19 which resulted in Large BM, can give again prn qd. Alcohol abuse without evidence of withdrawal, present on admission, stable - No further evidence of withdrawal symptoms noted - CD assessment done by KAMLA. Diabetes mellitus, chronic. - home regimen of Januvia 100mg qd, and glipizide 5mg AM 10mg PM, resumed . - medium Lispro correctional scale initially, Now dc/d as PO meds resumed. - Hemoglobin A1c 6.6 - Dietary Consult performed. Hypertension, Chronic - Resume Amlodipine 5 mg daily on 02/17. Chronic pain syndrome - Continue home regimen of Gabapentin 600 mg 3 times, MS Contin hm regimen. Status- expected length of stay greater than 2 midnights due to severity of presenting symptoms, risk of adverse events, and complexity of treatment plan. GI Prophylaxis: Proton Pump Inhibitor Resuscitation Status: CPR: Attempt Resuscitation Pedro Luis Bustillos MD Feb 19, 2017 13:48
[2017-02-19] MEDS ORDERED: Sodium Biphos-Phos 133 mL Enema RECTAL ONE (15:00)
[2017-02-19] MEDS ORDERED: Pantoprazole Inj 80 MG, Pharmacy To Mix 1 EA in 0.9% Sodium Chloride 80 ML IV SCH ×2 (18:00)
[2017-02-19 18:19] VITALS: BP 155/87; PULSE 87; RESP 18; O2SAT 98
[2017-02-19 20:39] VITALS: BP 125/76; PULSE 84; RESP 18; O2SAT 96
[2017-02-20] MEDS: 0.9% Sodium Chloride 1,000 ML IV SCH (03:54)
[2017-02-20] MEDS: cefTRIAXone Inj 1,000 MG in Dextrose 5% Minibag Plus 50 ML IV SCH (04:00)
[2017-02-20] MEDS: Morphine ER 15 mg (MS Contin) Tablet PO SCH ×3 (05:40→21:10)
[2017-02-20 05:42] VITALS: BP 104/63; PULSE 68; RESP 16; O2SAT 95
--- NOTE | 2017-02-20 05:49 | NUR ---
Bowel Movements: Scheduled lactulose administered at 2003. Pt. passed three extra-large, loose bowel movements during shift. Pt. alert and oriented X3 throughout shift. Ambulates independently in room. No overt signs or symptoms of distress.
[2017-02-20 07:32] VITALS: PULSE 68; RESP 22; O2SAT 93
[2017-02-20] MEDS: Lactulose 20 Gm/30 mL 30 mL Syrup PO SCH ×3 (07:43→21:12)
[2017-02-20] MEDS: Pantoprazole 40 mg ER24 Tablet PO SCH ×2 (07:43→16:48)
--- NOTE | 2017-02-20 12:23 | NUR ---
Social Work-readiness for discharge/ bedside rounds: Data:EMR reviewed. Pt is on day 5 of hospitalization for UGI bleed per H&P. Pt is not medically stable anticipate tomorrow. Bedside rounding completed, pt confirms no needs. CD assessment has been completed, pt declining resources at this time. Pt has been up ambulating in the hallways. No anticipated discharge needs. SW will continue to follow if needs arise. Assessment:pt who is independent at baseline. Plan:Pt to discharge home when medically stable via POV. Pt declining any CD resources at this time. No anticipated discharge needs. SW will continue to follow if needs arise. ROBERTO Mckinley
--- NOTE | 2017-02-20 12:23 | PCM.ANEP1 ---
Post Anesthesia PACU Phase 1 Assessment Date of Service: Feb 15, 2017 (1900) Vital Signs Vital Signs Date Time Temp Pulse Resp B/P Pulse Ox O2 Delivery O2 Flow Rate FiO2 02/20/17 07:32 68 22 93 Room Air 02/20/17 05:42 36.8 68 16 104/63 95 Room Air Anesthetic Administered: TIVA Level of Alertness: Awake, talking BELL's with Equal Strength: Yes Pain: No Pain Scale Score: 0 Nausea or Vomiting: No CV Function & Hydration Stable: Yes Airway Device: none Oxygen Delivery: Nasal Cannula Lungs: Diminished PACU Phase 2 Assessment Complications: No Follow up Care: N/A Patient Instructions Provided: N/A Antonio Mohr MD Feb 20, 2017 12:23
--- NOTE | 2017-02-20 12:59 | PCM.PNMED ---
Subjective Date of Service Feb 20, 2017 Subjective Pt had 2 enemas yesterday and 3 BM's overnight. Abd still feels distended. Denies fever/chills. Exam Vital Signs Vital Sign - Last Date Time Temp Pulse Resp B/P Pulse Ox O2 Delivery O2 Flow Rate FiO2 02/20/17 12:23 Nasal Cannula 02/20/17 07:32 68 22 93 02/20/17 05:42 36.8 104/63 02/15/17 18:01 6 Intake and Output 02/19/17 02/19/17 02/20/17 Cumulative From/Thru 15:00 23:00 07:00 02/14/17 23:56 - 02/20/17 06:58 Intake Total 650 ml 2629 ml 2473 ml 84104 ml Output Total 1925 ml 1000 ml 1800 ml 00577 ml Balance -1275 ml 1629 ml 673 ml 81014 ml Intake Oral 650 ml 1472 ml 775 ml 6340 ml IV Total 1157 ml 1698 ml 76387 ml Output Urine Total 1925 ml 1000 ml 1800 ml 48784 ml # Voids 4 4 # Bowel Movements 0 4 3 8 Exam General: male in no acute distress. AOX3. HEENT: Normocephalic, atraumatic. PERRLA. Scleral icterus. Mucous membranes dry Lungs: Clear to auscultation bilaterally with no crackles, wheezes, or rhonchi. Cardiovascular: Regular rate/rhythm. No murmurs Abdomen: Firm, Non-tender, +Mild-Mod Distended. No masses, BS present. Extremities: No cyanosis or edema Skin: Mild jaundice, No obvious rashes or ulcerations Neurological: AOx3, No focal neurologic deficit. IVs and Medications Medications Reviewed: Medications were reviewed in detail Lab and Diagnostics Result Diagram: 02/19/17 0745 02/19/17 0745 X-Rays, CTs and MRIs 02/15/17 - CT BRAIN WITHOUT CONTRAST IMPRESSION: 1. No acute intracranial process. Approved by: Mary Ty M.D. on 02/15/2017 at 11:59 02/15/17 - US ABDOMEN IMPRESSION: 1. Coarse appearance of the liver and this patient with history of hepatic cirrhosis. No discrete focal hepatic abnormality seen. 2. Sonographic splenomegaly. 3. Cholelithiasis without cholecystitis. Approved by: Mary Ty M.D. on 02/15/2017 at 20:24 . Additional Diagnostics 02/15/17 - EGD Pre Procedure Diagnosis: Anemia and melena Post Procedure Dx & Findings: Severe portal hypertensive gastropathy and esophageal varices antritis with erosions. PROCEDURE IN DETAIL: After proper sedation, Olympus video endoscope was inserted into patient's mouth and esophagus was successfully intubated. Scope introduced esophagus. Esophagus showed normal shiny whitish mucosa consistent with squamous cell component. Z line was intact at 40 cm from the incisors. From mid esophagus, I saw 4 columns of varices. One column was grade 3 varices in the other 3 columns were about grade 1-2 varices. No stigmata noted. Right below the Z line, it appears that patient had significant inflammation and irritation and this continued throughout the entire stomach. This body of the stomach showed severe portal hypertensive gastropathy. Antrum showed significant inflammation with multiple erosions. On some of the erosions, there was a clot. Clot was washed. Underneath it, there were clean-based erosions. Cardia fundus body antrum pylorus were all visualized. Retroflexion was done. Stomach was easily inflated and deflatable using air. Scope further events to the distal duodenum. Duodenum revealed normal villous structures with normal appearing folds without any mass ulcer erosion. IMPRESSION: Severe portal hypertensive gastropathy - probable source of melena esophageal varices antritis with erosions with clots.- Probable source of melena. RECOMMENDATION: - 5 days of IV PPI IV octreotide and antibiotics. - Please send the patient out on propanolol 10 mg by mouth twice a day initially and titrate up. Target heart rate mid 50s. - Patient with follow-up with his oral and maxillofacial surgery in [place] after discharge. Post Procedure Recommendations - Restrict activities today. - Resume normal activities in the morning. - Resume medications. - GERD behavioral modification: - Avoid fatty, acidic, spicy, large meals - Do not lie down after meals - Do not eat or drink anything for at least 2 1/2 hours before going to bed at night - Discontinue tobacco and alcohol - Decrease or avoid caffeine - Avoid chocolate and mints - Decrease weight - Avoid aspirin and non steroidal anti-inflammatory agents (NSAID) such as Aleve, Advil, Mobic, Naproxen, Ibuprofen, etc - Add proton pump inhibitor. Take 30 minutes before 1st meal of the day. - Patient informed of normal post procedure side effects as bloating, drowsiness , blood streaking in the stool - If gastric biopsy reveal H.pylori, continue with appropriate treatment - If small bowel biopsy reveals celiac, continue with appropriate treatment Noman Cao MD Assessment & Plan Jonathan Rosen is a 51 y/o male with Alcohol-related cirrhosis, iron deficiency anemia, non-insulin using diabetes mellitus, CVA, and chronic pain associated with lumbar DJD who presents to [facility] emergency department with confusion Acute Upper Gastrointestinal bleeding. Present on admission GI following, Dr. Cao. Performed EGD on 02/16- Severe portal hypertensive gastropathy - probable source of melena, esophageal varices, antritis with erosions with clots. - Completed 5 days IV PPI, IV octreotide and antibiotics, started 02/15/17, Day 5 on 02/19. Can d/c Ceftriaxone 02/21 before discharge. - discharge on Propanolol 10 mg PO BID and titrate up, target HR mid 50s - CBC in AM. Hb has been stable around 9. - F/u biopsies. Acute on chronic Hepatic encephalopathy, Present on admission, active. Patient is a heavy drinker with known history of Hepatic encephalopathy and on Lactulose as outpatient. - avoid benzodiazepine and high dose narcotics - Stopped Rifaximin 600mg PO BID as encephalopathy was likely due lactulose non- adherence. - 02/18-Increased Lactulose 20mg PO TID as no BM so far, can tirate down once 2- 3 BM over 24hrs. - No need for follow up GI, Dr. Cao. Can directly follow up with his own Resource Economist upon discharge. - Follow-up with his oral and maxillofacial surgery in [place] Constipation- acute, active Likely due to narcotics. 02/18-Increased Lactulose 20mg PO TID as no BM so far, can titrate down once 2-3 BM over 24hrs. Given Fleet Enema 02/19 which resulted in Large BM. Discharge on bowel regimen. Alcohol abuse without evidence of withdrawal, present on admission, stable - No further evidence of withdrawal symptoms noted - CD assessment done by [facility]. Resources provided. Diabetes mellitus, chronic. - home regimen of Januvia 100mg qd, and glipizide 5mg AM 10mg PM, resumed . - medium Lispro correctional scale initially, Now dc/d as PO meds resumed. - Hemoglobin A1c 6.6 - Blood sugars well controlled on home regimen. Hypertension, Chronic - Resume Amlodipine 5 mg daily on 02/17. Chronic pain syndrome - Continue home regimen of Gabapentin 600 mg 3 times, MS Contin hm regimen. Dispo- expected discharge 02/21/17 if medically stable. Pain Evaluation: Adequate Pain Control GI Prophylaxis: Proton Pump Inhibitor VTE Mechanical Devices: Venous Foot Pump Resuscitation Status: CPR: Attempt Resuscitation Pedro Luis Bustillos MD Feb 20, 2017 12:59
[2017-02-20 13:21] VITALS: BP 124/73; PULSE 68; RESP 16; O2SAT 97
--- NOTE | 2017-02-20 15:59 | NUR ---
AC BG DM pt getting AC BG checked. WNL prior to breakfast, pt refused check at lunch. Will ask again prior to dinner. Taking oral medications well.
[2017-02-20 20:42] VITALS: BP 122/77; PULSE 67; RESP 18; O2SAT 97
[2017-02-21 04:40] VITALS: BP 112/71; PULSE 65; RESP 16; O2SAT 97
[2017-02-21] MEDS ORDERED: 0.9% Sodium Chloride 100 ML ONE (04:40)
[2017-02-21] MEDS: Morphine ER 15 mg (MS Contin) Tablet PO SCH (04:44)
[2017-02-21] MEDS: cefTRIAXone Inj 1,000 MG in Dextrose 5% Minibag Plus 50 ML IV SCH (04:46)
[2017-02-21 06:34] LABS: BASOPHILS % (AUTO) 0.5 % (0-3); EOSINOPHILS % (AUTO) 6.2 % (0-5); MONOCYTES % (AUTO) 14.7 % (4-12); Mean Corpuscular Hemoglobin 28.8 pg (27.0-35.0); Mean Corpuscular Volume 91.1 fL (81-100); Platelet Count 119 bil/L (150-400)
[2017-02-21] MEDS ORDERED: PROP20TA5 PO (07:55)
[2017-02-21] MEDS: Lactulose 20 Gm/30 mL 30 mL Syrup PO SCH (08:30)
[2017-02-21] MEDS: Pantoprazole 40 mg ER24 Tablet PO SCH (08:32)
[2017-02-21] MEDS ORDERED: GLIP10TA10 PO (10:37)
--- NOTE | 2017-02-21 10:42 | PCM.DIMED ---
Discharge Instructions Date of Service Feb 21, 2017 Dates of Hospitalization Feb 15, 2017 at 04:41 Discharge Diagnosis Discharge Diagnosis Hepatic Encephalopathy, Acute Upper GI Bleed due to esophageal varices, Elevated LFT, DM2, HTN Medication Instructions Additional med instructions Please hold glipizide if you are not eating meals as this medication will cause low BG. If there is a concern that your BG is low, check the glucose, take [place] Juice and call PCP. Please note Chlorthalidone is held as you did not need it during this hospitalization. Diet Discharge Diet: Diabetic, Other (low sodium) Call your provider Call your provider for: Fever or Chills, Shortness of breath, Bleeding, Chest pain, Vomitting, Excessive diarrhea, Weakness (unilateral), Other Patient Instructions Patient Instructions Please send the patient out on propanolol 10 mg by mouth twice a day initially and titrate up. Target heart rate mid 50s. - Patient with follow-up with his registered diet technician in [place] after discharge. Post Procedure Recommendations - Restrict activities today. - Resume normal activities in the morning. - Resume medications. - GERD behavioral modification: - Avoid fatty, acidic, spicy, large meals - Do not lie down after meals - Do not eat or drink anything for at least 2 1/2 hours before going to bed at night - Discontinue tobacco and alcohol - Decrease or avoid caffeine - Avoid chocolate and mints - Decrease weight - Avoid aspirin and non steroidal anti-inflammatory agents (NSAID) such as Aleve, Advil, Mobic, Naproxen, Ibuprofen, etc - Add proton pump inhibitor. Take 30 minutes before 1st meal of the day. - Patient informed of normal post procedure side effects as bloating, drowsiness , blood streaking in the stool - If gastric biopsy reveal H.pylori, continue with appropriate treatment - If small bowel biopsy reveals celiac, continue with appropriate treatment Take Lactulose 30 g TID to achieve 3 BM a day. You may scale back to 20 g TID if you are having too many BM > 3-4 If still having too many scale back to 20 g Twice a day Please do not drive any Motor Vehicles Follow-up plan Patient with follow-up with his registered diet technician in [place] on 03/01/17 after discharge. F/U with PCP in 7-10 days, PCP is requested to f/u on biopsy results from EGD. Also DM2 medication change Post Procedure Recommendations - Restrict activities today. - Resume normal activities in the morning. - Resume medications. - GERD behavioral modification: - Avoid fatty, acidic, spicy, large meals - Do not lie down after meals - Do not eat or drink anything for at least 2 1/2 hours before going to bed at night - Discontinue tobacco and alcohol - Decrease or avoid caffeine - Avoid chocolate and mints - Decrease weight - Avoid aspirin and non steroidal anti-inflammatory agents (NSAID) such as Aleve, Advil, Mobic, Naproxen, Ibuprofen, etc - Add proton pump inhibitor. Take 30 minutes before 1st meal of the day. - Patient informed of normal post procedure side effects as bloating, drowsiness , blood streaking in the stool - If gastric biopsy reveal H.pylori, continue with appropriate treatment - If small bowel biopsy reveals celiac, continue with appropriate treatment Sofi Martinez DO Feb 21, 2017 10:42
--- NOTE | 2017-02-21 10:57 | NUR ---
Social Work-discharge: Data:EMR reviewed. Pt is on day 6 of hospitalization for UGI bleed per H&P. Pt is medically stable for discharge. Pt resides at home with roommate and has been up independent in his room. Pt has declined CD resources from SW. SW confirmed with tp at bedside that he has transport home and no needs. No discharge needs identified. All updated and agreeable to plan. Assessment:Pt who is independent at baseline. Plan:Pt to discharge home today via POV. No discharge needs identified. All updated and agreeable to plan. ROBERTO Mckinley
[2017-02-21] MEDS ORDERED: LACT10SO60 PO (11:03)
[2017-02-21] MEDS ORDERED: HYG25 PO (12:46)
--- NOTE | 2017-02-21 12:47 | PCM.DC.MED ---
Discharge Summary Date of Service Feb 21, 2017 Dates of Hospitalization Date of Hospital Admission Feb 15, 2017 at 04:41 Date of Discharge: Feb 21, 2017 Providers: Admitting Physician: Binu Crews MD Primary Care Physician: Patric Arvizu DO Attending Physician: Sofi Osorio DO Diagnosis at Time of Discharge Diagnosis at Time of Discharge Hepatic Encephalopathy, Acute Upper GI Bleed due to esophageal varices, Elevated LFT, DM2, HTN Consultations GI Procedures XRay, CTs & MRIs 02/15/17 - CT BRAIN WITHOUT CONTRAST IMPRESSION: 1. No acute intracranial process. Approved by: Mary Ty M.D. on 02/15/2017 at 11:59 02/15/17 - US ABDOMEN IMPRESSION: 1. Coarse appearance of the liver and this patient with history of hepatic cirrhosis. No discrete focal hepatic abnormality seen. 2. Sonographic splenomegaly. 3. Cholelithiasis without cholecystitis. Approved by: Mary Ty M.D. on 02/15/2017 at 20:24 . Other Diagnostics 02/15/17 - EGD Pre Procedure Diagnosis: Anemia and melena Post Procedure Dx & Findings: Severe portal hypertensive gastropathy and esophageal varices antritis with erosions. PROCEDURE IN DETAIL: After proper sedation, Olympus video endoscope was inserted into patient's mouth and esophagus was successfully intubated. Scope introduced esophagus. Esophagus showed normal shiny whitish mucosa consistent with squamous cell component. Z line was intact at 40 cm from the incisors. From mid esophagus, I saw 4 columns of varices. One column was grade 3 varices in the other 3 columns were about grade 1-2 varices. No stigmata noted. Right below the Z line, it appears that patient had significant inflammation and irritation and this continued throughout the entire stomach. This body of the stomach showed severe portal hypertensive gastropathy. Antrum showed significant inflammation with multiple erosions. On some of the erosions, there was a clot. Clot was washed. Underneath it, there were clean-based erosions. Cardia fundus body antrum pylorus were all visualized. Retroflexion was done. Stomach was easily inflated and deflatable using air. Scope further events to the distal duodenum. Duodenum revealed normal villous structures with normal appearing folds without any mass ulcer erosion. IMPRESSION: Severe portal hypertensive gastropathy - probable source of melena esophageal varices antritis with erosions with clots.- Probable source of melena. RECOMMENDATION: - 5 days of IV PPI IV octreotide and antibiotics. - Please send the patient out on propanolol 10 mg by mouth twice a day initially and titrate up. Target heart rate mid 50s. - Patient with follow-up with his couturiere in [place] after discharge. Post Procedure Recommendations - Restrict activities today. - Resume normal activities in the morning. - Resume medications. - GERD behavioral modification: - Avoid fatty, acidic, spicy, large meals - Do not lie down after meals - Do not eat or drink anything for at least 2 1/2 hours before going to bed at night - Discontinue tobacco and alcohol - Decrease or avoid caffeine - Avoid chocolate and mints - Decrease weight - Avoid aspirin and non steroidal anti-inflammatory agents (NSAID) such as Aleve, Advil, Mobic, Naproxen, Ibuprofen, etc - Add proton pump inhibitor. Take 30 minutes before 1st meal of the day. - Patient informed of normal post procedure side effects as bloating, drowsiness , blood streaking in the stool - If gastric biopsy reveal H.pylori, continue with appropriate treatment - If small bowel biopsy reveals celiac, continue with appropriate treatment Noman Cao MD Brief History GASTROENTEROLOGY CONSULT: Attending Physician: Noman Cao MD Resident Physician: Elke Crow DO Jonathan Rosen is a 51-year-old with a history of alcohol-related cirrhosis, iron deficiency anemia, diabetes, CVA, and recent admission here in December for hepatic encephalopathy with ataxia and probable Wernicke's encephalopthy as well as hyponatremia secondary to SIADH who presented to the ED with his girlfriend for increased confusion. History obtained via chart review, the patient's sister, and the patient. Although the patient's contribution is somewhat limited due to encephalopathy. Additionally his girlfriend who was present at the time of admission and able to provide some history is not here at this time. Patient is a known cirrhotic patient with hepatic encephalopathy as well as history of variceal bleeding in the past. He denies any symptoms or memory of events leading up to this admission. Family reports being told that the patient was somewhat somnolent and more confused for 24-48 hours. Patient's sister reports ongoing alcohol use with intermittent periods of sobriety that typically last for a couple of weeks. She states that the patient's roommate told her that he has not been drinking alcohol for approximately two weeks. Patient denies drinking alcohol prior to admission and blood alcohol level in the ED was within normal limits. In the ED, he was afebrile with a mildly elevated BP of 142/88, HR 94 and maintaining O2 sats in the high 90s on room air. Labs were significant for H/H 11.2/23.6, serum glucose of 377, total bilirubin 2.9, AST/ALT 91/57, alk phos 189 and ammonia markedly elevated, probably secondary to the GI bleeding and his underlying liver disease. Thus Lactulose was started as well. Melanotic stool was noted in the ED and the patient was started on a Protonix drip, octreotide, and Rocephin. Hospital Course Jonathan Rosen is a 51 y/o male with Alcohol-related cirrhosis, iron deficiency anemia, non-insulin using diabetes mellitus, CVA, and chronic pain associated with lumbar DJD who presents to [facility] emergency department with confusion Acute Upper Gastrointestinal bleeding. Present on admission GI following, Dr. Cao. Performed EGD on 02/16- Severe portal hypertensive gastropathy - probable source of melena, esophageal varices, antritis with erosions with clots. - Completed 5 days IV PPI, IV octreotide and antibiotics, started 02/15/17, Day 5 on 02/19. Can d/c Ceftriaxone 02/21 before discharge. - discharge on Propanolol 10 mg PO BID and titrate up, target HR mid 50s - CBC in AM. Hb has been stable around 9. - F/u biopsies: no path report is yet available on the day of discharge, PCP is requested to follow up Acute on chronic Hepatic encephalopathy, Present on admission, active. Patient is a heavy drinker with known history of Hepatic encephalopathy and on Lactulose as outpatient. - avoid benzodiazepine and high dose narcotics - Stopped Rifaximin 600mg PO BID as encephalopathy was likely due lactulose non- adherence. - 02/18-Increased Lactulose 20mg PO TID as no BM so far, can tirate down once 2- 3 BM over 24hrs. - No need for follow up GI, Dr. Cao. Can directly follow up with his own [employer] upon discharge. - Follow-up with his couturiere in [place] on 03/01/17 Constipation- acute, active Likely due to narcotics. 02/18-Increased Lactulose 20mg PO TID as no BM so far, can titrate down once 2-3 BM over 24hrs. Given Fleet Enema 02/19 which resulted in Large BM. Patient is given instructions on how to properly take lactulose. Alcohol abuse without evidence of withdrawal, present on admission, stable - No further evidence of withdrawal symptoms noted - CD assessment done by [facility]. Resources provided. Diabetes mellitus, chronic. - home regimen of Januvia 100mg qd, and glipizide 5mg AM 10mg PM, resumed . - medium Lispro correctional scale initially, Now dc/d as PO meds resumed. - Hemoglobin A1c 6.6 - Blood sugars well controlled on home regimen. -- Increased Glipizide to 10 mg PO BID. He was educated on how to watch for hypoglycemia Hypertension, Chronic - Resume chlorthalidone PO home medication Chronic pain syndrome - Continue home regimen of Gabapentin 600 mg 3 times, MS Contin hm regimen. Exam Vital Signs (Last) Date Time Temp Pulse Resp B/P Pulse Ox O2 Delivery O2 Flow Rate FiO2 02/21/17 04:40 36.7 65 16 112/71 97 Room Air 02/15/17 18:01 6 Exam General: NAD HEENT: NCAT Heart: 2+ systolic murmur, no s3/s4 Lungs: CTA, no crackles or wheezes Abd: Soft, obese, non distended, normal bowel sounds Ext: No edema Neuro: AOA x 3, no focal deficits Psych: No anxiety or agitation Test 02/15/17 01:17 02/15/17 01:18 02/15/17 01:40 02/15/17 04:00 Troponin T < 0.010ug/L (0.0-0.011) Alcohols < 10mg/dL (0-10) Hold Simms Top Tube Received (Received) Prothrombin Time 13.1sec (8.1-12.5) Prothromb Time International Ratio 1.22ratio Urine Color Yellow (YELLOW) Urine Appearance Clear (CLEAR,HAZY) Urine pH 7.0 (5.0-8.0) Urine Specific [place] 1.031 (1.003-1.035) Urine Protein Negativemg/dL (NEG,TRACE) Urine Glucose (UA) >1000mg/dL (NEGATIVE) Urine Ketones Negativemg/dL (NEGATIVE) Urine Occult Blood Negative (NEGATIVE) Urine Nitrite Negative (NEGATIVE) Urine Bilirubin Negative (NEGATIVE) Urine Urobilinogen 1.0mg/dL (NORMAL) Urine Leukocyte Esterase Negative (NEGATIVE) Urine RBC 0-2/hpf (0-2) Urine WBC 0-5/hpf (0-5) Urine Epithelial Cells Occasional/hpf (NONE-MOD) Urine Crystals None seen (NONE SEEN) Urine Bacteria None/hpf (NONE-FEW) Urine Hyaline Casts None/lpf (NONE) Urine Granular Casts None seen (NONE SEEN) Urine Waxy Casts None seen (NONE SEEN) Urine Red Blood Cell Casts None seen (NONE SEEN) Urine White Blood Cell Casts None seen (NONE SEEN) Urine Mucus None seen (None Seen) Urine Trichomonas None seen (NONE SEEN) Urine Yeast None (NONE SEEN) Urinalysis Comment None Urine Culture Reflexed Not indicated Test 02/15/17 04:35 02/17/17 08:09 02/19/17 07:45 02/21/17 06:15 Hemoglobin A1c 6.6% (4.8-5.6) Ammonia 174ug/dL (18-53) Magnesium Level 1.3mg/dL (1.6-2.6) Total Bilirubin 2.4mg/dL (0.0-1.2) Aspartate Amino Transf (AST/SGOT) 64U/L (0-50) Alanine Aminotransferase (ALT/SGPT) 38U/L (0-44) Alkaline Phosphatase 149U/L (25-150) Total Protein 6.9g/dL (6.4-8.4) Albumin 2.8g/dL (3.4-5.0) White Blood Count 3.7th/mm3 (3.8-10.1) Red Blood Count 3.02mil/mm3 (4.40-5.80) Hemoglobin 8.7g/dL (13.8-17.2) Hematocrit 27.5% (41.0-50.0) Mean Corpuscular Volume 91.1fL (81-100) Mean Corpuscular Hemoglobin 28.8pg (27.0-35.0) Mean Corpuscular Hemoglobin Concent 31.6% (32.0-37.0) Red Cell Distribution Width 14.9% (12.3-15.4) Platelet Count 119bil/L (150-400) Neutrophils (%) (Auto) 59.0% (40-74) Lymphocytes (%) (Auto) 19.3% (14-46) Monocytes (%) (Auto) 14.7% (4-12) Eosinophils (%) (Auto) 6.2% (0-5) Basophils (%) (Auto) 0.5% (0-3) Sodium Level 137mEq/L (134-144) Potassium Level 3.4mEq/L (3.5-5.2) Chloride Level 106mEq/L (97-108) Carbon Dioxide Level 19mmol/L (18-29) Blood Urea Nitrogen 6mg/dL (6-24) Creatinine 0.48mg/dL (0.76-1.27) Estimat Glomerular Filtration Rate 195mL/min (>59) Glucose Level 173mg/dL (60-99) Calcium Level 8.1mg/dL (8.5-10.1) Discharge Medications Discharge Medications Amlodipine (Amlodipine) 5 Mg Tablet 5 MG PO DAILY Prescribed by: RENETTA YUN MD Ferrous Sulfate (Feosol) 325 Mg Tablet 325 MG PO BIDWM Prescribed by: BIPIN ROONEY MD Gabapentin (Neurontin) 300 Mg Capsule 600 MG PO TID (Reported) Glipizide (Glipizide) 10 Mg Tablet 10 MG PO BIDWM Prescribed by: SOFI OSORIO DO Lactulose (Lactulose) 20 Gm/30 Ml Solution 30 GM PO TID Prescribed by: SOFI OSORIO DO Morphine Sulfate ER (MS Contin) 15 Mg Tablet.er 15 MG PO q8hrs (Reported) Omeprazole Magnesium (Prilosec Otc) 20 Mg Tablet.dr 20 MG PO DAILY (Reported) Propranolol HCl (Propranolol HCl) 20 Mg Tablet 10 MG PO BID Prescribed by: SOFI OSORIO DO Quetiapine Fumarate (Seroquel) 200 Mg Tablet 300 MG PO HS (Reported) Sitagliptin Phos (Januvia) 100 Mg Tablet 100 MG PO DAILY Prescribed by: RENETTA YUN MD Sodium Chloride (Sodium Chloride) 1 Gm Tablet 1 GM PO BID Prescribed by: BIPIN ROONEY MD Thiamine Mononitrate (Vitamin B-1) 100 Mg Tablet 100 MG PO DAILY Prescribed by: BIPIN ROONEY MD As needed Albuterol Sulfate (Ventolin HFA Inhaler) 200 Puff/18 Gm Inhaler 1 PUFF INH Q4 PRN PRN For Wheezing (Reported) Oxycodone (Roxicodone) 5 Mg Tablet 5 MG PO Q4-6H PRN PRN For Pain (Reported) Additional med instructions Please hold glipizide if you are not eating meals as this medication will cause low BG. If there is a concern that your BG is low, check the glucose, take [place] Juice and call PCP. Please note Chlorthalidone is held as you did not need it during this hospitalization. Followup Plan Follow-up plan Patient with follow-up with his couturiere in [place] on 03/01/17 after discharge. F/U with PCP in 7-10 days, PCP is requested to f/u on biopsy results from EGD. Also DM2 medication change Post Procedure Recommendations - Restrict activities today. - Resume normal activities in the morning. - Resume medications. - GERD behavioral modification: - Avoid fatty, acidic, spicy, large meals - Do not lie down after meals - Do not eat or drink anything for at least 2 1/2 hours before going to bed at night - Discontinue tobacco and alcohol - Decrease or avoid caffeine - Avoid chocolate and mints - Decrease weight - Avoid aspirin and non steroidal anti-inflammatory agents (NSAID) such as Aleve, Advil, Mobic, Naproxen, Ibuprofen, etc - Add proton pump inhibitor. Take 30 minutes before 1st meal of the day. - Patient informed of normal post procedure side effects as bloating, drowsiness , blood streaking in the stool - If gastric biopsy reveal H.pylori, continue with appropriate treatment - If small bowel biopsy reveals celiac, continue with appropriate treatment Discharge Diet: Diabetic, Other (low sodium) Patient Instructions Please send the patient out on propanolol 10 mg by mouth twice a day initially and titrate up. Target heart rate mid 50s. - Patient with follow-up with his couturiere in [place] after discharge. Post Procedure Recommendations - Restrict activities today. - Resume normal activities in the morning. - Resume medications. - GERD behavioral modification: - Avoid fatty, acidic, spicy, large meals - Do not lie down after meals - Do not eat or drink anything for at least 2 1/2 hours before going to bed at night - Discontinue tobacco and alcohol - Decrease or avoid caffeine - Avoid chocolate and mints - Decrease weight - Avoid aspirin and non steroidal anti-inflammatory agents (NSAID) such as Aleve, Advil, Mobic, Naproxen, Ibuprofen, etc - Add proton pump inhibitor. Take 30 minutes before 1st meal of the day. - Patient informed of normal post procedure side effects as bloating, drowsiness , blood streaking in the stool - If gastric biopsy reveal H.pylori, continue with appropriate treatment - If small bowel biopsy reveals celiac, continue with appropriate treatment Time spent Greater than 30 minutes was spent in preparation of discharge with greater than 50% of that time dedicated to patient counseling and coordination of care. Sofi Osorio DO Feb 21, 2017 10:45
--- NOTE | 2017-02-21 13:03 | NUR ---
Discharge patient left unit approx 1300, no c/o pain or discomfort. Reviewed discharge paper work, discharge medications and follow up appointments. per patient patient does not take ordered discharge medication amlodipine at home, called pharmacy and states," never filled amlodipine for this patient." called Dr. Martinez and notified, changes were made to discontinue amlodipine and placed back on home medication chlorthalidone. patient returned charge nurse prescription for propranolol and charge nurse placed in chart. will notify Dr. Martinze. Discontinued peripheral IV prior to discharge.
== END 2017-02-21 13:00 | disposition home or self-care (01) | DRG 441 ==
LOC: SED 23:40 → MPC 02-15 04:41
PROVIDERS: ADMIT Hospitalist; ATTEND Family Medicine
PROC: 0DJ08ZZ Inspection of Upper Intestinal Tract, Via Natural or Artificial Opening Endoscopic (ICD-10-PCS; principal; 2017-02-15 18:00)
DX: K72.00 Acute and subacute hepatic failure without coma (principal); K29.61 Other gastritis with bleeding; K76.6 Portal hypertension; D61.818 Other pancytopenia; K92.1 Melena; I85.00 Esophageal varices without bleeding; K70.10 Alcoholic hepatitis without ascites; K70.30 Alcoholic cirrhosis of liver without ascites; G89.4 Chronic pain syndrome; K31.89 Other diseases of stomach and duodenum; Z87.891 Personal history of nicotine dependence; F10.10 Alcohol abuse, uncomplicated; I10 Essential (primary) hypertension; E11.9 Type 2 diabetes mellitus without complications; Z86.73 Personal history of transient ischemic attack (TIA), and cerebral infarction without residual deficits; K59.00 Constipation, unspecified; T40.605A Adverse effect of unspecified narcotics, initial encounter; Z79.82 Long term (current) use of aspirin; Z79.84 Long term (current) use of oral hypoglycemic drugs